=== PATIENT | female | born 1930 | race Caucasian/White ===

== ENCOUNTER 2017-03-03 14:37 | Emergency (ER) | payer OTHER, MEDICARE ==
[2017-03-03 14:59] VITALS: BP 160/70; BMI 22.8
--- NOTE | 2017-03-03 17:26 | DR.GENAD ---
HPI - PCP Primary Care Physician: MAO - HPI Comment HPI Comment: HISTORY BELOW. - Complaint/Symptoms Chief Complaint Doctors Comments: LOWER ABDOMINAL PAIN TIMES 2 DAYS. FELL LEFT LOWER ABDOMEN IS SWOLLEN AND RIGHT LOWER ABDOMEN IS SUNKEN. PREVIOUS HERNIA REPAIR DONE ON THE RIGHT. Chief Complaint:: WANTS TO HAVE SITE TO ABD WHERE HERNIA SURGERY WAS DONE TO BE CHECKED OUT SINCE IT IS SUNKEN IN. ONLY NOTICED THIS 2 DAYS AGO. - Nurses notes reviewed Nurses Notes Review: Yes - Source History Provided: Patient - Mode of Arrival Mode of Arrival: Ambulatory - Timing Onset of Chief Complaint: 03/01/17 Came on: Suddenly - Duration Duration: Constant Duration: Days - Severity Severity: Moderate PMH - PMH Past Medical History: Yes Past Medical History: Anxiety, Arthritis, Depression, Dyslipidemia, GERD, Hypertension Past Surgical History: Yes Surgical History: Appendectomy, Cholecystectomy, Joint Replacement, Other - Family History History of Family Medical Conditions: Yes Family Medical History: Heart Failure - Social History Alcohol Use: None Do you use any recreational Drugs:: Yes Lives With: Alone - infectious screening In the last 2 months have you had wt loss of >10#?: NO Have you had fever, night sweats or hemotysis?: No Have you traveled outside the country in the last 6 months?: No Isolation: Standard ROS - Review of Systems Constitutional: No Symptoms Reported. negative: Chills, Diaphoresis, Fever, Weakness, Fatigue Eyes: No Symptoms Reported. negative: Eye Pain, Discharge ENTM: No Symptoms Reported. negative: Ear Pain, Nose Discharge, Nose Congestion , Throat Pain Respiratoy: No Symptoms Reported. negative: Productive Cough, Short of Breath, Wheezing, Hemoptysis Cardiovascular: No Symptoms Reported. negative: Chest Pain Gastrointestinal/Abdominal: Abdominal Pain, Nausea. negative: Diarrhea, Vomiting Genitourinary: Dysuria. negative: Frequency, Hematuria Neurological: No Symptoms Reported. negative: Headache, Weakness Musculoskeletal: No Symptoms Reported Integumentary: No Symptoms Reported Hematologic/Lymphatic: No Symptoms Reported Endocrine: No Symptoms Reported All Other Systems: Reviewed and Negative PE - Vital Signs Vitals: Temperature 97.4 F Pulse Rate 79 Respiratory Rate 14 Blood Pressure [Left Arm] 169/74 Blood Pressure [Right Arm] 140/63 Blood Pressure [Standing] 145/70 Blood Pressure [Sitting] 149/65 Blood Pressure [Lying] 171/74 Blood Pressure 160/70 O2 Sat by Pulse Oximetry 95 - General Limitations: No Limitations General Appearance: Alert - Head Head Exam: Normal Inspection - Eyes Eye exam: Normal Appearance - ENT ENT Exam: Normal External Ear Exam External Ear Exam: Normal External Inspection TM/Canal Exam: Bilateral Normal Nose Exam: Normal Nose Exam Mouth Exam: Normal Inspection Throat Exam: Normal Inspection - Neck Neck Exam: Trachea Midline - Chest Chest Inspection: Symmetric Chest Wall Rise - Respiratory Respiratory Exam: Normal Lung Sounds Bilat Respiratory Exam: Bilateral Clear to Auscultation - Cardiovascular Cardiovascular Exam: Regular Rate, Normal Rhythm, Normal Heart Sounds - Abdominal Exam Abdominal Exam: Normal Bowel Sounds, Soft, Tenderness Abdominal Tenderness: RLQ, LLQ, Suprapubic - Extremities Extremities Exam: Normal Inspection - Back Back Exam: Normal Inspection - Neurologic Neurological Exam: Alert, Oriented X3 - Psychiatric Psychiatric Exam: Normal Affect, Normal Mood - Skin Skin Exam: Normal Color MDM - Differential Diagnosis Differential Diagnosis: ABDOMINAL PAIN Course - Treatment Treatment: SEE 0RDERS - Education/Counseling Education/Counseling: Patient, Education Educated On: Diagnosis, Needs for Follow Up ROR - Labs Reviewed Laboratory Results Reviewed?: Yes Result Diagrams: 03/03/17 17:25 03/03/17 17:25 Laboratory: WBC 6.0 X10^3/uL (3.6-10.0) 03/03/17 17:25 RBC 4.10 X10^6/uL (3.5-5.4) 03/03/17 17:25 Hgb 13.6 g/dL (12.0-16.0) 03/03/17 17:25 Hct 40.0 % (36.0-47.0) 03/03/17 17:25 MCV 97.7 fL (80.0-100.0) 03/03/17 17:25 MCH 33.3 pg (27.0-34.0) 03/03/17 17:25 MCHC 34.1 g/dL (33.0-35.0) 03/03/17 17:25 RDW 12.8 % (11.6-16.5) 03/03/17 17:25 Plt Count 199 X10^3/uL (150.0-450.0) 03/03/17 17:25 MPV 7.9 fL (7.4-11.0) 03/03/17 17:25 Neut % 62.5 % (42.0-75.0) 03/03/17 17: Lymph % 28.7 % (21.0-51.0) 03/03/17: [place] % 6.1 % (0.0-13.0) 03/03/17 17: Eos % 1.7 % (0.9-2.9) 03/03/17 17: Baso % 1.0 % (0.2-1.0) 03/03/17: Neut # 3.7 x10^3/uL (2.2-4.8) 03/03/17: Lymph # 1.7 X10^3/uL (1.3-2.9) 03/03/17: [place] # 0.4 x10^3/uL (0.3-0.8) 03/03/17: Eos # 0.1 x10^3/uL (0.0-0.2) 03/03/17: Baso # 0.1 X10^3/uL (0.0-0.1) 03/03/17 17: Absolute Nucleated RBC 0.0 /100WBC 03/03/17 17:25 Sodium 143 mmol/L (136-145) 03/03/17 17: Corrected Sodium TNP 03/03/17: Potassium 4.6 mmol/L (3.5-5.1) 03/03/17: Chloride 105 mmol/L (98-107) 03/03/17: Carbon Dioxide 25.0 mmol/L (21-32) 03/03/17: BUN 20 mg/dL (7-18) H 03/03/17 17:25 Creatinine 1.24 mg/dL (0.55-1.02) H 03/03/17:25 Est GFR (MDRD) Af Amer 53 (>60) L 03/03/17: Est GFR (MDRD) Non-Af 44 (>60) L 03/03/17:25 Glucose 95 mg/dL (65-99) 03/03/17: Calcium 9.2 mg/dL (8.5-10.1) 03/03/17: Corrected Calcium TNP 04/17/17 17:25 Total Bilirubin 0.30 mg/dL (0.2-1.0) 03/03/17 17:25 AST 16 Units/L (15-37) 03/03/17 17:25 ALT 18 Units/L (12-78) 03/03/17 17:25 Alkaline Phosphatase 72 Units/L (46-116) 03/03/17 17:25 Total Protein 7.4 g/dL (6.4-8.2) 03/03/17 17:25 Albumin 3.9 g/dL (3.4-5.0) 03/03/17 17:25 Globulin 3.5 g/dL (2.5-4.5) 03/03/17 17:25 Albumin/Globulin Ratio 1.1 Ratio (1.1-2.1) 03/03/17 17:25 Amylase 61 Units/L (25-115) 03/03/17 17:25 Lipase 203 Units/L (73-393) 03/03/17 17:25 Specimen Type Clean catch urine 03/03/17 17:25 Urine Color Yellow (YELLOW) 03/03/17 17:25 Urine Appearance Clear (CLEAR) 03/03/17 17:25 Urine pH 5.0 (5.0 - 8.0) 03/03/17 17:25 Ur Specific [place] 1.015 (1.000-1.030) 03/03/17 17:25 Urine Protein Negative (NEGATIVE) 03/03/17 17:25 Urine Glucose (UA) Negative (NEGATIVE) 03/03/17 17:25 Urine Ketones Negative (NEGATIVE) 03/03/17 17:25 Urine Occult Blood Negative (NEGATIVE) 03/03/17 17:25 Urine Nitrite Negative (NEGATIVE) 03/03/17 17:25 Urine Bilirubin Negative (NEGATIVE) 03/03/17 17:25 Urine Urobilinogen Normal (NORMAL) 03/03/17 17:25 Ur Leukocyte Esterase 2+ (NEGATIVE) 03/03/17 17:25 Urine RBC 0-1 /HPF (NEGATIVE) 03/03/17 17:25 Urine WBC 2-4 /HPF (NEGATIVE) 03/03/17 17:25 Ur Squamous Epith Cells Rare /HPF (NEGATIVE) 03/03/17 17:25 Amorphous Sediment 1+ /HPF (NEGATIVE) 03/03/17 17:25 Urine Bacteria Negative /HPF (NEGATIVE) 03/03/17 17:25 Ur Culture Indicated? No/not indicated 03/03/17 17:25 - XRAY XRAY Interpreted by: Radiologist XRAY Findings: REPORT DISCUSS WITH PATIENT. - Diagnosis Discharge Problem: Abdominal pain Qualifiers: Abdominal location: lower abdomen, unspecified Qualified Code(s): R10.30 - Lower abdominal pain, unspecified - Discharge Plan Condition: Stable - Follow ups/Referrals Follow ups/Referrals: Nabil Vaughn [Primary Care Provider] - 3 days - Instructions Instructions: Abdominal Pain, Adult, [id number] Additional Instructions: RETURN TO ED IF WORSE.
[2017-03-03 17:43] LABS: BASOPHILS # (AUTO) 0.1 X10^3/uL (0.0-0.1); EOSINOPHILS # (AUTO) 0.1 x10^3/uL (0.0-0.2); EOSINOPHILS % (AUTO) 1.7 % (0.9-2.9); HEMOGLOBIN 13.6 g/dL (12.0-16.0); LYMPHOCYTES # (AUTO) 1.7 X10^3/uL (1.3-2.9); LYMPHOCYTES % (AUTO) 28.7 % (21.0-51.0); MEAN CORPUSCULAR HEMOGLOBIN 33.3 pg (27.0-34.0); MEAN CORPUSCULAR HGB CONC 34.1 g/dL (33.0-35.0); MEAN CORPUSCULAR VOLUME 97.7 fL (80.0-100.0); MEAN PLATELET VOLUME 7.9 fL (7.4-11.0); MONOCYTES # (AUTO) 0.4 x10^3/uL (0.3-0.8); MONOCYTES % (AUTO) 6.1 % (0.0-13.0); NEUTROPHILS # (AUTO) 3.7 x10^3/uL (2.2-4.8); NEUTROPHILS % (AUTO) 62.5 % (42.0-75.0); PLATELET COUNT 199 X10^3/uL (150.0-450.0); RED CELL DISTRIBUTION WIDTH 12.8 % (11.6-16.5)
[2017-03-03 17:51] LABS: BILIRUBIN,URINE NEGATIVE (NEGATIVE); BLOOD/HEMOGLOBIN,URINE NEGATIVE (NEGATIVE); GLUCOSE, URINE NEGATIVE (NEGATIVE); KETONES,URINE NEGATIVE (NEGATIVE); LEUKOCYTE ESTERASE ,URINE 2+ (NEGATIVE); NITRITES,URINE NEGATIVE (NEGATIVE); PROTEIN,URINE NEGATIVE (NEGATIVE); UROBILINOGEN,URINE NORMAL (NORMAL)
[2017-03-03 18:01] LABS: AMORPHOUS SEDIMENT,UR 1+ /HPF (NEGATIVE); APPEARANCE,URINE CLEAR (CLEAR); BACTERIA,URINE NEGATIVE /HPF (NEGATIVE); COLOR,URINE YELLOW (YELLOW); RBC,URINE 0-1 /HPF (NEGATIVE); SQUAMOUS EPITHELIAL CELL,UR RARE /HPF (NEGATIVE)
--- NOTE | 2017-03-03 18:11 | RAD ---
HISTORY: Pain Study: Acute abdominal series Comparison: 10/05/2016. Findings: The trachea is midline. The cardiac silhouette is unremarkable. The lungs are clear without focal infiltrate or effusion. The bony thorax is unremarkable. Flat plate and upright evaluation of the abdomen demonstrates a normal bowel gas pattern. No pathol ogical soft tissue mass or calcification can be observed. The bony structures are grossly intact. T here are bilateral hip replacements which are unchanged. IMPRESSION: 1. No acute cardiopulmonary disease. 2. No evidence for acute abdominal pathology identified. Reported By:
[2017-03-03 18:12] LABS: ALANINE AMINOTRANSFERASE 18 Units/L (12-78); ALBUMIN 3.9 g/dL (3.4-5.0); ALKALINE PHOSPHATASE 72 Units/L (46-116); AMYLASE 61 Units/L (25-115); ASPARTATE AMINO TRANSFERASE 16 Units/L (15-37); BLOOD UREA NITROGEN 20 mg/dL (7-18); CALCIUM 9.2 mg/dL (8.5-10.1); CHLORIDE 105 mmol/L (98-107); CREATININE 1.24 mg/dL (0.55-1.02); GLUCOSE 95 mg/dL (65-99); LIPASE 203 Units/L (73-393); SODIUM 143 mmol/L (136-145); TOTAL PROTEIN 7.4 g/dL (6.4-8.2); eGFR BLACK RACES 53 (>60); eGFR NON BLACK RACES 44 (>60)
== END 2017-03-03 18:52 | disposition home or self-care (01) ==
LOC: ER 15:07
DX: R10.31 Right lower quadrant pain (principal)
CPT/HCPCS: 36415; 74022; 80053; 81001; 82150; 83690; 85025; 99283

== ENCOUNTER 2017-06-03 08:44 | Emergency (ER) | payer OTHER, MEDICARE ==
[2017-06-03 08:48] VITALS: BMI 26.5
--- NOTE | 2017-06-03 09:01 | DR.EXTPAIN ---
HPI - Time seen Time seen: 10:00 - PCP Primary Care Physician: MAO RYAN - Complaint/Symptoms Chief Complaint:: PT C/O BACK PAIN THAT STARTED ON 06/02/17.. PT STATES " WHEN I GOT UP IT'S LIKE SOMETHING TORE APART IN THERE" Self Treatment fo Chief Complaint: PERCOGESIC, - Source History Provided: Patient - Mode of arrival Mode of Arrival: Wheelchair - Timing Onset of Chief Complaint: 06/02/17 PMH - PMH Past Medical History: Yes Past Medical History: Anxiety, Arthritis, Depression, Dyslipidemia, GERD, Hypertension Past Surgical History: Yes Surgical History: Appendectomy, Cholecystectomy, Joint Replacement - Family History History of Family Medical Conditions: Yes Family Medical History: Heart Failure - Social History Does patient currently use any type of tobacco product: No Have you used tobacco products in the last 12 months: No Type of Tobacco Use: None Does any household member use tobacco: No Alcohol Use: None Do you use any recreational Drugs:: No Lives With: Alone Lives Where: Home - infectious screening In the last 2 months have you had wt loss of >10#?: NO Have you had fever, night sweats or hemotysis?: No Have you traveled outside the country in the last 6 months?: No Isolation: Standard PE - Vital Signs Vitals: Temperature 97.6 F Pulse Rate 69 Respiratory Rate 22 Blood Pressure [Left Arm] 160/62 Blood Pressure [Right Arm] 140/63 Blood Pressure [Standing] 145/70 Blood Pressure [Sitting] 149/65 Blood Pressure [Lying] 171/74 Blood Pressure 186/77 O2 Sat by Pulse Oximetry 100 ROR - XRAY XRAY Interpreted by: Radiologist XRAY Findings: ct lumbar: hnp no fx - Diagnosis Discharge Problem: HNP (herniated nucleus pulposus), lumbar - Discharge Plan Condition: Stable Prescriptions: Prednisone [PREDNISONE TAB 20 MG *] 20 mg PO QAM #7 tab Tramadol HCl [ULTRAM 50 MG *] 50 mg PO Q8H PRN #20 tab PRN Reason: Pain - Follow ups/Referrals Follow ups/Referrals: Nabil Vaughn [Primary Care Provider] - 3 days - Instructions
[2017-06-03] MEDS ORDERED: CATAPRES TAB 0.2 MG PO ONE (09:21)
[2017-06-03] MEDS ORDERED: TORADOL 60 MG VIAL IM ONE (09:21)
[2017-06-03] MEDS ORDERED: CATAPRES TAB 0.2 MG ONE (09:38)
[2017-06-03] MEDS ORDERED: TORADOL 60 MG VIAL ONE (09:38)
[2017-06-03 10:43] VITALS: BP 160/62
--- NOTE | 2017-06-03 10:47 | CT ---
HISTORY: Sudden onset low back pain Study: CT lumbar spine without contrast Comparison: None Technique: Axial non contrast images with coronal and sagittal reformats. Dose reduction procedures were use with MA/kv adjusted for body size. Findings: The bones are osteopenic. The alignment is normal. The vertebral bodies are of average height. No co mpression fracture is identified. The pedicles, spinous processes, and posterior elements are intact . The SI joints and visualized sacrum are intact. The disc levels are evaluated as follows: L1-2 level: there is disc degeneration with broad-based disc protrusion which effaces the thecal sa c and contributes along with facet arthropathy to moderate lateral recess and foraminal narrowing bi laterally. L2-3 level: Mild circumferential disk bulging contributes along with facet arthropathy to mild later al recess narrowing bilaterally. This is slightly more prominent on the left than the right. L3-4 level: Broad-based disc protrusion effaces the thecal sac and contributes along with pedicular shortening and facet arthropathy to lateral recess narrowing bilaterally. L4-5 level: There is marked disc degeneration with vacuum phenomenon present. Broad-based disk bulgi ng effaces the thecal sac and contributes along with facet arthropathy and pedicular shortening and spondylitic change to lateral recess and foraminal narrowing bilaterally right greater than left L5-S1 level: Broad-based disc protrusion, partially calcified, effaces the thecal sac and contribute s along with pedicular shortening and facet arthropathy to lateral recess and foraminal narrowing bi laterally more prominent than at the levels noted above. IMPRESSION: As above Reported By:
== END 2017-06-03 11:48 | disposition home or self-care (01) ==
LOC: ER 08:59
DX: M51.26 Other intervertebral disc displacement, lumbar region (principal)
CPT/HCPCS: 72131; 96372; 99282; J1885

== ENCOUNTER 2017-07-28 13:41 | Inpatient (IN) | payer OTHER, MEDICARE ==
[2017-07-28 13:58] VITALS: BMI 21.9
[2017-07-28] MEDS ORDERED: DILAUDID INJ IVP ONE ×2 (13:59→18:19)
--- NOTE | 2017-07-28 13:59 | DR.EXTPAIN ---
HPI - Time seen Time seen: 13:50 - Complaint/Symptoms Chief Complaint Doctor Comments: Patient states that she fell while at home just prior to arrival. Her pain level is 10/10 aggravated by motion. PMH - PMH Past Medical History: Anxiety, Arthritis, Depression, Dyslipidemia, GERD, Hypertension Past Surgical History: Yes Surgical History: Appendectomy, Cholecystectomy, Joint Replacement - Family History Family Medical History: Heart Failure - Social History Do you use any recreational Drugs:: No ROS - Review of Systems Eyes: No Symptoms Reported ENTM: No Symptoms Reported Respiratoy: No Symptoms Reported Cardiovascular: No Symptoms Reported Gastrointestinal/Abdominal: No Symptoms Reported Genitourinary: No Symptoms Reported Neurological: No Symptoms Reported Musculoskeletal: Hip (right hip pain) Integumentary: No Symptoms Reported Hematologic/Lymphatic: No Symptoms Reported Endocrine: No Symptoms Reported Psychiatric: No Symptoms Reported All Other Systems: Reviewed and Negative PE - Vital Signs Vitals: Temperature 98.9 F Pulse Rate 54 Respiratory Rate 18 Blood Pressure [Left Arm] 160/62 Blood Pressure [Right Arm] 140/63 Blood Pressure [Standing] 145/70 Blood Pressure [Sitting] 149/65 Blood Pressure [Lying] 171/74 Blood Pressure 212/85 O2 Sat by Pulse Oximetry 100 - General General Appearance: Alert, In No Apparent Distress - Head Head Exam: Normal Inspection, Atraumatic - ENT ENT Exam: Normal Exam, Normal Oropharynx - Neck Neck Exam: Other (arthritic, decreased ROM ) - Chest Chest Inspection: Normal Inspection - Respiratory Respiratory Exam: Normal Lung Sounds Bilat Respiratory Exam: Bilateral Clear to Auscultation - Cardiovascular Cardiovascular Exam: Regular Rate, Normal Rhythm - Abdominal Exam Abdominal Exam: Normal Inspection Abdominal Tenderness: negative: RUQ, RLQ, LUQ, LLQ, Epigastrium, Suprapubic, Diffuse, Mild, Moderate, Severe, Other - Extremities Extremities Exam: Tenderness (Right hip joint, leg externally rototated) - Upper Extremities Shoulder Exam: Normal Inspection Arm Exam: Normal Inspection Elbow Exam: Normal Inspection Forearm Exam: Normal Inspection Hand Exam: Normal Inspection Neuromotor Exam: Normal Exam Neurosensory Exam: Normal Exam Hand Tendon Exam: Flexor Digitorium Profundus (Location) Upper Ext. Vascular Exam: Capillary Refill, Radial Pulse - Lower Extremities Hip/Pelvis Exam: Normal Inspection Upper Leg Exam: Normal Inspection Knee Exam: Normal Inspection Lower Leg Exam: Normal Inspection, Full ROM Ankle Exam: Normal Inspection Foot/Toe Exam: Normal Inspection Neurovascular/Tendon Exam: Normal Capillary Refill Gait Exam: Observed and Normal - Back Back Exam: Normal Inspection - Neurological Neurological Exam: Alert, Oriented X3, CN II-XII Intact - Psychiatric Psychiatric Exam: Normal Affect - Skin Skin Exam: Warm, Dry, Intact Type of Lesion: Rash Distribution: Generalized Course - Reevaluation 1st: Improved - Consultation Called: 11:40 (Dr Velez agreed to admit for further evaluation) ROR - Labs Reviewed Result Diagrams: 07/28/17 15:41 07/28/17 15:41 Laboratory: WBC 11.6 X10^3/uL (3.6-10.0) H 07/28/17 15:41 RBC 3.98 X10^6/uL (3.5-5.4) 07/28/17 15:41 Hgb 13.1 g/dL (12.0-16.0) 07/28/17 15:41 Hct 38.6 % (36.0-47.0) 07/28/17 15:41 MCV 97.0 fL (80.0-100.0) 07/28/17 15:41 MCH 33.0 pg (27.0-34.0) 07/28/17 15:41 MCHC 34.0 g/dL (33.0-35.0) 07/28/17 15:41 RDW 13.1 % (11.6-16.5) 07/28/17 15:41 Plt Count 201 X10^3/uL (150.0-450.0) 07/28/17 15:41 MPV 7.7 fL (7.4-11.0) 07/28/17 15:41 Neut % 82.6 % (42.0-75.0) H 07/28/17 15:41 Lymph % 9.9 % (21.0-51.0) L 07/28/17 15:41 [place] % 6.2 % (0.0-13.0) 07/28/17 15:41 Eos % 0.5 % (0.9-2.9) L 07/28/17 15:41 Baso % 0.8 % (0.2-1.0) 07/28/17 15:41 Neut # 9.6 x10^3/uL (2.2-4.8) H 07/28/17 15:41 Lymph # 1.2 X10^3/uL (1.3-2.9) L 07/28/17 15:41 [place] # 0.7 x10^3/uL (0.3-0.8) 07/28/17 15:41 Eos # 0.1 x10^3/uL (0.0-0.2) 07/28/17 15:41 Baso # 0.1 X10^3/uL (0.0-0.1) 07/28/17 15:41 Absolute Nucleated RBC 0.0 /100WBC 07/28/17 15:41 ESR 8 MM/HOUR (0-20) 07/28/17 15:41 INR Target Range - 07/28/17 15:41 INR 1.08 (0.8-1.3) 07/28/17 15:41 PTT 25.9 SECONDS (22.9-36.5) 07/28/17 15:41 PTT Comment - 07/28/17 15:41 Sodium 137 mmol/L (136-145) 07/28/17 15:41 Corrected Sodium 137 mmol/L (136-145) 07/28/17 15:41 Potassium 4.8 mmol/L (3.5-5.1) 07/28/17 15:41 Chloride 104 mmol/L (98-107) 07/28/17 15:41 Carbon Dioxide 25.9 mmol/L (21-32) 07/28/17 15:41 BUN 21 mg/dL (7-18) H 07/28/17 15:41 Creatinine 1.45 mg/dL (0.55-1.02) H 07/28/17 15:41 Est GFR (MDRD) Af Amer 44 (>60) L 07/28/17 15:41 Est GFR (MDRD) Non-Af 36 (>60) L 07/28/17 15:41 Glucose 117 mg/dL (65-99) H 07/28/17 15:41 Calcium 8.9 mg/dL (8.5-10.1) 07/28/17 15:41 Corrected Calcium TNP 07/28/17 15:41 Total Bilirubin 0.60 mg/dL (0.2-1.0) 07/28/17 15:41 AST 16 Units/L (15-37) 07/28/17 15:41 ALT 20 Units/L (12-78) 07/28/17 15:41 Alkaline Phosphatase 71 Units/L (46-116) 07/28/17 15:41 C-Reactive Protein < 0.50 mg/L (0-3.0) 07/28/17 15:41 Total Protein 7.2 g/dL (6.4-8.2) 07/28/17 15:41 Albumin 3.8 g/dL (3.4-5.0) 07/28/17 15:41 Globulin 3.4 g/dL (2.5-4.5) 07/28/17 15:41 Albumin/Globulin Ratio 1.1 Ratio (1.1-2.1) 07/28/17 15:41 Specimen Type Catherized urine 07/28/17 16:48 Urine Color Yellow (YELLOW) 07/28/17 16:48 Urine Appearance Clear (CLEAR) 07/28/17 16:48 Urine pH 6.5 (5.0 - 8.0) 07/28/17 16:48 Ur Specific [place] 1.010 (1.000-1.030) 07/28/17 16:48 Urine Protein Negative (NEGATIVE) 07/28/17 16:48 Urine Glucose (UA) Negative (NEGATIVE) 07/28/17 16:48 Urine Ketones Negative (NEGATIVE) 07/28/17 16:48 Urine Occult Blood Negative (NEGATIVE) 07/28/17 16:48 Urine Nitrite Negative (NEGATIVE) 07/28/17 16:48 Urine Bilirubin Negative (NEGATIVE) 07/28/17 16:48 Urine Urobilinogen Normal (NORMAL) 07/28/17 16:48 Ur Leukocyte Esterase Negative (NEGATIVE) 07/28/17 16:48 Urine RBC None seen /HPF (NEGATIVE) 07/28/17 16:48 Urine WBC None seen /HPF (NEGATIVE) 07/28/17 16:48 Ur Squamous Epith Cells Rare /HPF (NEGATIVE) 07/28/17 16:48 Urine Bacteria Negative /HPF (NEGATIVE) 07/28/17 16:48 Ur Culture Indicated? No/not indicated 07/28/17 16:48 - XRAY XRAY Interpreted by: Radiologist (Right Hip: There is a fracture in the subtrochanteric right femur that is displaced laterally. The right hip prosthesis is otherwise intact. CT right hip w/o contrast: Deep soft tissues of the pelvis show no unexpected abnormality. There4 is soft tissue stranding about the right femur whitout large drainable collection. Hematoma within the vastus intermedius muscle belly suggested. Knee joint degenerative change and mild osteopenia noted. The acetabular component of the arthroplasty is intact. Impression: 1.Right femur fracture around the stoma the right hip arthroplasty. 2.Intact acetabular component.3.Knee joint degenerative change. 4. Hemamtom of the vastus medialis muscle about the fracture. 5.Vascular plaque and ohter incidental findings as above.) - Diagnosis Discharge Problem: Right femoral fracture Qualifiers: Encounter type: initial encounter Femur location: intertrochanteric Fracture type: closed Fracture alignment: displaced Qualified Code(s): S72.141A - Displaced intertrochanteric fracture of right femur, initial encounter for closed fracture - Discharge Plan Condition: Stable - Follow ups/Referrals Follow ups/Referrals: NFD,None [Primary Care Provider] - 3 days - Instructions
[2017-07-28] MEDS ORDERED: DILAUDID INJ ONE ×2 (14:00→18:20)
--- NOTE | 2017-07-28 14:23 | RAD ---
HISTORY: Fall and pain Study: right hip series Comparison: 07/25/2016 Findings: There is a metallic prosthesis in both hips with the acetabular and femoral portions of the prosthesi s in good position. There is a spiral fracture along the proximal femur on the right beginning along the subtrochanteric region and extending distally around the tip of the prosthesis. The fracture is m ildly displaced and slightly comminuted distally. The pelvis is intact. The bones are osteopenic. Impression: Bilateral hip replacements which appear intact and in good position with a mildly displaced and sligh tly comminuted fracture along the proximal right femur. Severe osteopenia. Reported By:
[2017-07-28 15:50] LABS: BASOPHILS # (AUTO) 0.1 X10^3/uL (0.0-0.1); BASOPHILS % (AUTO) 0.8 % (0.2-1.0); EOSINOPHILS # (AUTO) 0.1 x10^3/uL (0.0-0.2); EOSINOPHILS % (AUTO) 0.5 % (0.9-2.9); HEMATOCRIT 38.6 % (36.0-47.0); HEMOGLOBIN 13.1 g/dL (12.0-16.0); LYMPHOCYTES # (AUTO) 1.2 X10^3/uL (1.3-2.9); LYMPHOCYTES % (AUTO) 9.9 % (21.0-51.0); MEAN PLATELET VOLUME 7.7 fL (7.4-11.0); MONOCYTES # (AUTO) 0.7 x10^3/uL (0.3-0.8); MONOCYTES % (AUTO) 6.2 % (0.0-13.0); NEUTROPHILS # (AUTO) 9.6 x10^3/uL (2.2-4.8); NEUTROPHILS % (AUTO) 82.6 % (42.0-75.0); PLATELET COUNT 201 X10^3/uL (150.0-450.0); RED BLOOD COUNT 3.98 X10^6/uL (3.5-5.4); RED CELL DISTRIBUTION WIDTH 13.1 % (11.6-16.5); WHITE BLOOD COUNT 11.6 X10^3/uL (3.6-10.0)
[2017-07-28 16:03] LABS: ALANINE AMINOTRANSFERASE 20 Units/L (12-78); ALBUMIN 3.8 g/dL (3.4-5.0); ALKALINE PHOSPHATASE 71 Units/L (46-116); ASPARTATE AMINO TRANSFERASE 16 Units/L (15-37); BLOOD UREA NITROGEN 21 mg/dL (7-18); C-REACTIVE PROTEIN < 0.50 mg/L (0-3.0); CALCIUM 8.9 mg/dL (8.5-10.1); CARBON DIOXIDE 25.9 mmol/L (21-32); CHLORIDE 104 mmol/L (98-107); COR NA(FOR HYPERGLY) 137 mmol/L (136-145); CREATININE 1.45 mg/dL (0.55-1.02); SODIUM 137 mmol/L (136-145); TOTAL PROTEIN 7.2 g/dL (6.4-8.2); eGFR BLACK RACES 44 (>60); eGFR NON BLACK RACES 36 (>60)
[2017-07-28 16:38] LABS: ERYTHROCYTE SEDIMENTATION RATE 8 MM/HOUR (0-20)
--- NOTE | 2017-07-28 16:47 | CT ---
CT right hip without contrast Indication: Fall with possible fracture Comparison: July 28, 2017 radiograph. Technique: Helical images through the right hip and femur without contrast. Coronal and sagittal refo rmats provided. Findings: Deep soft tissues of the pelvis show no unexpected abnormality. There is soft tissue strand ing about the right femur without large drainable collection. Hematoma within the vastus intermedius muscle belly suggested. Knee joint degenerative change and mild osteopenia noted. The acetabular comp onent of the arthroplasty is intact. As seen radiographically there is obliquely oriented fracture about the proximal diaphysis and metaph ysis of the femur, around the femoral stone of the right total hip arthroplasty. Impression: 1. Right femur fracture around the stoma the right hip arthroplasty. 2. Intact acetabular component. 3. Knee joint degenerative change. 4. Hematoma of the vastus medialis muscle about the fracture. 5. Vascular plaque and other incidental findings as above Reported By:
[2017-07-28 17:01] LABS: BILIRUBIN,URINE NEGATIVE (NEGATIVE); BLOOD/HEMOGLOBIN,URINE NEGATIVE (NEGATIVE); GLUCOSE, URINE NEGATIVE (NEGATIVE); KETONES,URINE NEGATIVE (NEGATIVE); LEUKOCYTE ESTERASE ,URINE NEGATIVE (NEGATIVE); NITRITES,URINE NEGATIVE (NEGATIVE); PH,URINE 6.5 (5.0 - 8.0); PROTEIN,URINE NEGATIVE (NEGATIVE); UROBILINOGEN,URINE NORMAL (NORMAL)
--- NOTE | 2017-07-28 17:03 | RAD ---
HISTORY: Fall and right hip fracture. Study: Four views of the right femur. Comparison: Right hip series dated same day. Findings: There is a fracture in the sub trochanteric right femur that is displaced laterally. The right hip pr osthesis is otherwise intact. Remaining osseous structures appear intact. IMPRESSION: Proximal right femur fracture as above. Reported By:
[2017-07-28 17:19] LABS: APPEARANCE,URINE CLEAR (CLEAR); BACTERIA,URINE NEGATIVE /HPF (NEGATIVE); COLOR,URINE YELLOW (YELLOW); RBC,URINE NONE SEEN /HPF (NEGATIVE); SQUAMOUS EPITHELIAL CELL,UR RARE /HPF (NEGATIVE)
[2017-07-28] MEDS ORDERED: DILAUDID PCA 60 MG IVP PRN (18:04)
[2017-07-28] MEDS ORDERED: DILAUDID INJ IVP PRN (19:59)
[2017-07-28] MEDS: CATAPRES TAB 0.1 MG PO SCH (20:47)
[2017-07-28] MEDS: ANTIVERT TAB 25 MG PO SCH (20:47)
[2017-07-28] MEDS: COREG TAB 6.25 MG PO SCH (20:47)
[2017-07-28] MEDS: BENADRYL CAP/TAB 25 MG PO PRN (20:47)
[2017-07-28] MEDS: D5W 1000 ML IV 1,000 ML IV SCH (22:16)
[2017-07-29 05:16] LABS: BASOPHILS % (AUTO) 0.5 % (0.2-1.0); EOSINOPHILS % (AUTO) 0.2 % (0.9-2.9); HEMATOCRIT 34.9 % (36.0-47.0); HEMOGLOBIN 11.9 g/dL (12.0-16.0); LYMPHOCYTES # (AUTO) 1.2 X10^3/uL (1.3-2.9); LYMPHOCYTES % (AUTO) 14.9 % (21.0-51.0); MEAN CORPUSCULAR HEMOGLOBIN 33.2 pg (27.0-34.0); MEAN CORPUSCULAR HGB CONC 34.1 g/dL (33.0-35.0); MEAN CORPUSCULAR VOLUME 97.4 fL (80.0-100.0); MEAN PLATELET VOLUME 8.4 fL (7.4-11.0); MONOCYTES # (AUTO) 0.9 x10^3/uL (0.3-0.8); MONOCYTES % (AUTO) 10.4 % (0.0-13.0); NEUTROPHILS # (AUTO) 6.1 x10^3/uL (2.2-4.8); PLATELET COUNT 170 X10^3/uL (150.0-450.0); RED BLOOD COUNT 3.59 X10^6/uL (3.5-5.4); RED CELL DISTRIBUTION WIDTH 13.1 % (11.6-16.5); WHITE BLOOD COUNT 8.3 X10^3/uL (3.6-10.0)
[2017-07-29 05:30] LABS: ALANINE AMINOTRANSFERASE 20 Units/L (12-78); ALBUMIN 3.5 g/dL (3.4-5.0); ALKALINE PHOSPHATASE 60 Units/L (46-116); ASPARTATE AMINO TRANSFERASE 19 Units/L (15-37); BLOOD UREA NITROGEN 21 mg/dL (7-18); CARBON DIOXIDE 28.1 mmol/L (21-32); CHLORIDE 107 mmol/L (98-107); COR NA(FOR HYPERGLY) 141 mmol/L (136-145); CREATININE 1.31 mg/dL (0.55-1.02); SODIUM 141 mmol/L (136-145); TOTAL PROTEIN 6.8 g/dL (6.4-8.2); eGFR BLACK RACES 50 (>60); eGFR NON BLACK RACES 41 (>60)
--- NOTE | 2017-07-29 06:43 | RAD ---
HISTORY: Preop for femur fracture Study: Single-view chest, done portably Comparison: March 03, 2017 Findings: Trachea is midline. Heart size is upper normal. Lungs and pleural spaces clear. No infiltrate, CHF, p leural fluid or pneumothorax is seen. Severe degenerative changes present involving the glenohumeral joints bilaterally, more pronounced on the left side. No acute osseous abnormality is seen. IMPRESSION: No acute cardiopulmonary disease. Reported By:
[2017-07-29] MEDS ORDERED: DULCOLAX SUPPOSITORY 10 MG RECTAL ONE (07:39)
--- NOTE | 2017-07-29 08:09 | DR.H&P ---
H&P - History & Physical for Day of: H&P Date: 07/28/17 - Chief Complaint Chief Complaint: RIGHT LEG/HIP PAIN - Allergies Allergies/Adverse Reactions: Allergies Allergy/AdvReac Type Severity Reaction Status Date / Time cephalexin [From Keflex] AdvReac Verified 07/28/17 19:58 morphine AdvReac Verified 07/28/17 19:58 sertraline [From Zoloft] AdvReac Verified 07/28/17 19:58 - History of Present Illness History of Present Illness: IS A 87 YEAR OLD PAITIENT OF OURS WHO PRESENTED TO THE EMERGENCY ROOM WITH COMPLAINTS OF RIGHT LEG AND HIP PAIN. PATIENT REPORTS THAT SHE TRIPPED OVER A CORD IN HER HOME AND LANDED ON HER RIGHT HIP/LEG. PATIENT REPORTS PAIN 08/26. ON ARRIVAL TO ER, VITALS WERE 98.9-54 -18-100%-212/85. CBC WNL EXCEPT WBC 11.6. CMP WNL EXCEPT BUN 21, CREATININE 1.45 , GFR 36, GLUCOSE 117. URINALYSIS NEGATIVE FOR UTI. RIGHT HIP XRAY REPORTS MILDLY DISPLACED AND SLIGHTLY COMMINUTED FX ALONG THE PROXIMAL RIGHT FEMUR. RIGHT FEMUR XRAY AGAIN REPORTS PROXIMAL RIGHT FEMUR FX. CT RIGHT HIP REPORTS RIGHT FEMUR FX AROUND THE STOMA AND THE RIGHT HIP ARTHROPLASTY, INTACT ACETABULAR COMPONENT, KNEE JOINT DEGENERATIVE CHANGE, HEMATOMA OF THE VASTUS MEDIALIS MUSCLE AOBOUT THE FX, AND VASCULAR PLAQUE AND OTHER INCIDENTAL FINDINGS. CHEST XRAY WNL. EKG REPORTS SINUS RHYTHM WITH RATE OF 68. PATIENT WAS GIVEN DILAUDID IVP IN ER WITH IMPROVEMENT IN PAIN NOTED. WE ADMITTED PATIENT FOR FURTHER TREATMENT AND EVALUATION. SHE WAS STARTED ON D5W AT 20ML/HR AND DILAUDID 2MG IVP Q1H PRN PAIN. HER HOME MEDICATIONS WERE RESTARTED. WE PLAN TO CONSULT . WE WILL RECHECK AM LABS AND CONTINUE TO MONITOR PATIENT. - Past Medical History Past Medical History: Anxiety, Arthritis, Depression, Dyslipidemia, GERD, Hypertension Additional Medical History: Cataracts, Freq UTI's, Hx Diverticulosis, Macular Degeneration, Hiatal Hernia, Degenerative Joint Disease - Past Surgical History Surgical History: Appendectomy, Cholecystectomy, Joint Replacement Additional Surgical History: Hernia Repair x 3, Left breast lumpectomy, HIP REPLACEMENT - Family History Family Medical History: Heart Failure - Social History Does patient currently use any type of tobacco product: No Have you used tobacco products in the last 12 months: No Type of Tobacco Use: None Does any household member use tobacco: No Alcohol Use: None Drug Use: None - Review of Systems Constitutional: No Symptoms Reported Eyes: No Symptoms Reported ENT: No Symptoms Reported Respiratory: No Symptoms Reported Cardiovascular: No Symptoms Reported Gastrointestinal: No Symptoms Reported Genitourinary: No Symptoms Reported Musculoskeletal: See HPI (RIGHT LEG/HIP PAIN), Leg Pain (RIGHT LEG/HIP PAIN) Skin: No Symptoms Reported Neurological: No Symptoms Reported - Physical Exam Vital Signs: Temperature 98.0 F Pulse Rate [Left Brachial] 68 Pulse Rate 54 Respiratory Rate 20 Blood Pressure [Left Arm] 134/63 Blood Pressure [Right Arm] 173/74 Blood Pressure [Standing] 145/70 Blood Pressure [Sitting] 149/65 Blood Pressure [Lying] 171/74 Blood Pressure 212/85 O2 Sat by Pulse Oximetry 96 Oriented: Normal Eyes: Normal Ear: Normal Nose: Normal Throat: Normal Respiratory: Clear Throughout Cardiovascular: Normal : Normal Auscultation: Bowel Sounds: Normal Palpation: Normal Tenderness: Normal Musculoskeletal: Right, Hip, Leg, Tender, Instability Psychiatric: Normal Mood Description: Calm Affect: Normal Speech Pattern: Clear - Assessment/Plan (1) Right femoral fracture Qualifiers: Encounter type: initial encounter Femur location: intertrochanteric Fracture type: closed Fracture alignment: displaced Qualified Code(s): S72.141A - Displaced intertrochanteric fracture of right femur, initial encounter for closed fracture Status: Acute Plan: SURGICAL CONSULT, DILAUDID 2MG Q1H PRN PAIN, CONTINUE TO MONITOR
--- NOTE | 2017-07-29 08:25 | PCM.PROG ---
Progress Note - Progress Note for Day of Date: 07/29/17 - Subjective Subjective: WAS ADMITTED FOR A RIGHT FEMUR FX. SHE IS ALERT AND ORIENTED, LYING IN BED ON MORNING ROUNDS. SHE IS NOTED WITH COMPLAINTS OF RIGHT LEG PAIN. VITALS THIS AM ARE 98.0-68-20-96%-134/63. CBC WNL EXCEPT HGB 11.9, HCT 34.9. CMP WNL EXCEPT BUN 21, CREATININE 1.31, GFR 41, GLUCOSE 120. WE WILL CONSULT WITH TODAY. WE WILL ADD TORADOL 30MG IVP Q2H PRN PAIN. PATIENT'S HISTORY AND LABS/XRAYS HAVE BEEN REVIEWED. PATIENT IS CLEAR FOR SURGERY SHOULD ORTHOPEDIC EXAM INDICATE THE NEED FOR SUCH. WE PLAN TO RECHECK AM LABS AND FOLLOW UP WITH PATIENT IN AM. - Past Medical Family Social History Past Med/Fam/Surg Hx: No changes since H&P Allergies: Allergies cephalexin [From Keflex] Adverse Reaction (Verified 07/28/17 19:58) morphine Adverse Reaction (Verified 07/28/17 19:58) sertraline [From Zoloft] Adverse Reaction (Verified 07/28/17 19:58) - Review of Systems ROS: No change since H&P - Vital Signs and I&O's Vital Signs: Temperature 98.0 F Pulse Rate [Left Brachial] 68 Pulse Rate 54 Respiratory Rate 20 Blood Pressure [Left Arm] 134/63 Blood Pressure [Right Arm] 173/74 Blood Pressure [Standing] 145/70 Blood Pressure [Sitting] 149/65 Blood Pressure [Lying] 171/74 Blood Pressure 212/85 O2 Sat by Pulse Oximetry 96 Intake and Output: Intake & Output 07/26/17 07/27/17 07/28/17 07/29/17 11:59 11:59 11:59 11:59 Intake Total 10 Output Total 800 Balance -790 - Physical Exam Oriented: Normal Eyes: Normal Ear: Normal Nose: Normal Throat: Normal Respiratory: Normal Cardiovascular: Normal : Normal Auscultation: Bowel Sounds: Normal Palpation: Normal Tenderness: Normal Skin: Normal Musculoskeletal: Right, Hip, Leg, Tender, Instability Psychiatric: Normal Mood Description: Calm Affect: Normal Speech Pattern: Clear - Laboratory and Diagnostics Result Diagrams: 07/29/17 03:26 07/29/17 03:26 Labs: Laboratory WBC 8.3 X10^3/uL (3.6-10.0) 07/29/17 03:26 RBC 3.59 X10^6/uL (3.5-5.4) 07/29/17 03:26 Hgb 11.9 g/dL (12.0-16.0) L 07/29/17 03:26 Hct 34.9 % (36.0-47.0) L 07/29/17 03:26 MCV 97.4 fL (80.0-100.0) 07/29/17 03:26 MCH 33.2 pg (27.0-34.0) 07/29/17 03:26 MCHC 34.1 g/dL (33.0-35.0) 07/29/17 03:26 RDW 13.1 % (11.6-16.5) 07/29/17 03:26 Plt Count 170 X10^3/uL (150.0-450.0) 07/29/17 03:26 MPV 8.4 fL (7.4-11.0) 07/29/17 03:26 Neut % 74.0 % (42.0-75.0) 07/29/17 03:26 Lymph % 14.9 % (21.0-51.0) L 07/29/17 03:26 [place] % 10.4 % (0.0-13.0) 07/29/17 03:26 Eos % 0.2 % (0.9-2.9) L 07/29/17 03:26 Baso % 0.5 % (0.2-1.0) 07/29/17 03:26 Neut # 6.1 x10^3/uL (2.2-4.8) H 07/29/17 03:26 Lymph # 1.2 X10^3/uL (1.3-2.9) L 07/29/17 03:26 [place] # 0.9 x10^3/uL (0.3-0.8) H 07/29/17 03:26 Eos # 0.0 x10^3/uL (0.0-0.2) 07/29/17 03:26 Baso # 0.0 X10^3/uL (0.0-0.1) 07/29/17 03:26 Absolute Nucleated RBC 0.1 /100WBC 07/29/17 03:26 ESR 8 MM/HOUR (0-20) 07/28/17 15:41 INR Target Range - 07/28/17 15:41 INR 1.08 (0.8-1.3) 07/28/17 15:41 PTT 25.9 SECONDS (22.9-36.5) 07/28/17 15:41 PTT Comment - 07/28/17 15:41 Sodium 141 mmol/L (136-145) 07/29/17 03:26 Corrected Sodium 141 mmol/L (136-145) 07/29/17 03:26 Potassium 5.0 mmol/L (3.5-5.1) 07/29/17 03:26 Chloride 107 mmol/L (98-107) 07/29/17 03:26 Carbon Dioxide 28.1 mmol/L (21-32) 07/29/17 03:26 BUN 21 mg/dL (7-18) H 07/29/17 03:26 Creatinine 1.31 mg/dL (0.55-1.02) H 07/29/17 03:26 Est GFR (MDRD) Af Amer 50 (>60) L 07/29/17 03:26 Est GFR (MDRD) Non-Af 41 (>60) L 07/29/17 03:26 Glucose 120 mg/dL (65-99) H 07/29/17 03:26 Calcium 9.0 mg/dL (8.5-10.1) 07/29/17 03:26 Corrected Calcium TNP 07/29/17 03:26 Total Bilirubin 0.40 mg/dL (0.2-1.0) 07/29/17 03:26 AST 19 Units/L (15-37) 07/29/17 03:26 ALT 20 Units/L (12-78) 07/29/17 03:26 Alkaline Phosphatase 60 Units/L (46-116) 07/29/17 03:26 C-Reactive Protein < 0.50 mg/L (0-3.0) 07/28/17 15:41 Total Protein 6.8 g/dL (6.4-8.2) 07/29/17 03:26 Albumin 3.5 g/dL (3.4-5.0) 07/29/17 03:26 Globulin 3.3 g/dL (2.5-4.5) 07/29/17 03:26 Albumin/Globulin Ratio 1.1 Ratio (1.1-2.1) 07/29/17 03:26 Specimen Type Catherized urine 07/28/17 16:48 Urine Color Yellow (YELLOW) 07/28/17 16:48 Urine Appearance Clear (CLEAR) 07/28/17 16:48 Urine pH 6.5 (5.0 - 8.0) 07/28/17 16:48 Ur Specific [place] 1.010 (1.000-1.030) 07/28/17 16:48 Urine Protein Negative (NEGATIVE) 07/28/17 16:48 Urine Glucose (UA) Negative (NEGATIVE) 07/28/17 16:48 Urine Ketones Negative (NEGATIVE) 07/28/17 16:48 Urine Occult Blood Negative (NEGATIVE) 07/28/17 16:48 Urine Nitrite Negative (NEGATIVE) 07/28/17 16:48 Urine Bilirubin Negative (NEGATIVE) 07/28/17 16:48 Urine Urobilinogen Normal (NORMAL) 07/28/17 16:48 Ur Leukocyte Esterase Negative (NEGATIVE) 07/28/17 16:48 Urine RBC None seen /HPF (NEGATIVE) 07/28/17 16:48 Urine WBC None seen /HPF (NEGATIVE) 07/28/17 16:48 Ur Squamous Epith Cells Rare /HPF (NEGATIVE) 07/28/17 16:48 Urine Bacteria Negative /HPF (NEGATIVE) 07/28/17 16:48 Ur Culture Indicated? No/not indicated 07/28/17 16:48 Blood Type B NEGATIVE 07/28/17 18:18 Antibody Screen Negative 07/28/17 18:18 - Plan (1) Right femoral fracture Status: Acute Qualifiers: Encounter type: initial encounter Femur location: intertrochanteric Fracture type: closed Fracture alignment: displaced Qualified Code(s): S72.141A - Displaced intertrochanteric fracture of right femur, initial encounter for closed fracture Plan: SURGICAL CONSULT, DILAUDID 2MG Q1H PRN PAIN, CONTINUE TO MONITOR (2) Depression Status: Chronic Qualifiers: Depression Type: major depressive disorder Major depression recurrence: recurrent Active/Remission status: currently active Major depression episode severity: moderate Qualified Code(s): F33.1 - Major depressive disorder, recurrent, moderate Plan: CONTINUE CELEXA 40MG PO DAILY, CONTINUE TO MONITOR (3) GERD (gastroesophageal reflux disease) Status: Chronic Qualifiers: Esophagitis presence: esophagitis presence not specified Qualified Code(s) : K21.9 - Gastro-esophageal reflux disease without esophagitis Plan: CONTINUE PEPCID 20MG DAILY, CONTINUE TO MONITOR (4) Hypertension Status: Chronic Qualifiers: Hypertension type: essential hypertension Qualified Code(s): I10 - Essential (primary) hypertension Plan: CONTINUE COREG 6.25MG BID, CONTINUE CATAPRES 0.1MG PO HS, CONTINUE LISINOPRIL 20MG PO DAILY, CONTINUE TO MONITOR (5) Vertigo Status: Chronic Plan: CONTINUE MECLIZINE 25MG PO HS, CONTINUE TO MONITOR
[2017-07-29] MEDS ORDERED: TORADOL 30 MG VIAL IVP PRN (09:20)
[2017-07-29] MEDS: DILAUDID INJ IVP PRN ×2 (09:27→22:46)
[2017-07-29] MEDS ORDERED: CHRONULAC PO PRN (12:30)
--- NOTE | 2017-07-29 13:50 | DR.CONSULT ---
Consult - Consultation for Day of: Date: 07/29/17 (thanks for the consult Dr. Vaughn.) - Chief Complaint Chief Complaint: RIGHT hip pain, swelling and deformity. Unable to walk since yesterday. - Allergies Allergies/Adverse Reactions: Allergies Allergy/AdvReac Type Severity Reaction Status Date / Time cephalexin [From Keflex] AdvReac Verified 07/28/17 19:58 morphine AdvReac Verified 07/28/17 19:58 sertraline [From Zoloft] AdvReac Verified 07/28/17 19:58 - History of Present Illness History of Present Illness: patient 87-year-old very pleasant lady. Had a fall at home. She has a RIGHT total hip replacement done in 2009. And and LEFT hemiarthroplasty. After the fall she noticed pain external rotation deformity of the feet. She was not able to lift her leg she was not able to get up and walk. Brought to the emergency room. X-rays of the RIGHT hip showed a fracture involving the the RIGHT periprosthetic femur around a total hip replacement. Admitted and consultation placed for orthopedics. History again confirmed. Denies any start up pain/thigh pain in the past. He denies any pain in the groin/chills/RIGOURS/constitutional symptoms.x-rays and CT was done. It confirmed a complex fracture involving the RIGHT periprosthetic femur. - Past Medical History Past Medical History: Anxiety, Arthritis, Depression, Dyslipidemia, GERD, Hypertension Additional Medical History: Cataracts, Freq UTI's, Hx Diverticulosis, Macular Degeneration, Hiatal Hernia, Degenerative Joint Disease - Past Surgical History Surgical History: Appendectomy, Cholecystectomy, Joint Replacement Additional Surgical History: Hernia Repair x 3, Left breast lumpectomy, HIP REPLACEMENT - Family History Family Medical History: Heart Failure - Social History Does patient currently use any type of tobacco product: No Have you used tobacco products in the last 12 months: No Type of Tobacco Use: None Does any household member use tobacco: No Alcohol Use: None Drug Use: None - Review of Systems Musculoskeletal: See HPI - Physical Exam Vital Signs: Temperature 98.0 F Pulse Rate [Left Brachial] 68 Pulse Rate 54 Respiratory Rate 20 Blood Pressure [Left Arm] 134/63 Blood Pressure [Right Arm] 173/74 Blood Pressure [Standing] 145/70 Blood Pressure [Sitting] 149/65 Blood Pressure [Lying] 171/74 Blood Pressure 212/85 O2 Sat by Pulse Oximetry 96 Musculoskeletal: Right, Hip, Thigh, Swelling, Tender, Deformity, Instability - Plan Plan: she has a RIGHT hip periprosthetic fracture. The fracture is a complex fracture involving the lesser tuberosityas well as a around the stem. She doesn 't seem to have any signs of loosening or infection in the past. Seems like stable processes before the fall. She will need surgical intervention. Depending on the intraoperative findings for stability of the implant we will proceed with most probably open reduction and internal fixation of the RIGHT femur periprosthetic fracture with plates and screws and cables. We will also have a judaism modular available as backup in case he find that the prosthesis was unstable. #1 postop for surgery on . #2 blood group type and match and arrange for 3 units of PRBCs as standby. #3 [place] traction with 5 pounds on the RIGHT limb.
[2017-07-29] MEDS ORDERED: ZESTRIL TAB 20 MG ONE (15:24)
[2017-07-29] MEDS: CELEXA PO SCH (15:25)
[2017-07-29] MEDS: COREG TAB 6.25 MG PO SCH ×2 (15:26→20:08)
[2017-07-29] MEDS: PEPCID TAB 20 MG PO SCH (15:26)
[2017-07-29] MEDS: ZESTRIL TAB 20 MG PO SCH (15:26)
[2017-07-29] MEDS: LOVENOX INJ 40 MG SYR SC SCH (15:26)
[2017-07-29] MEDS: ANTIVERT TAB 25 MG PO SCH (20:08)
[2017-07-29] MEDS: CATAPRES TAB 0.1 MG PO SCH (20:08)
[2017-07-29] MEDS: BENADRYL CAP/TAB 25 MG PO PRN (20:09)
[2017-07-29] MEDS: D5W 1000 ML IV 1,000 ML IV SCH (21:31)
[2017-07-30] MEDS: DILAUDID INJ IVP PRN ×3 (05:32→13:02)
[2017-07-30 05:49] LABS: ALANINE AMINOTRANSFERASE 18 Units/L (12-78); ALBUMIN 3.6 g/dL (3.4-5.0); ALKALINE PHOSPHATASE 64 Units/L (46-116); ASPARTATE AMINO TRANSFERASE 15 Units/L (15-37); BLOOD UREA NITROGEN 30 mg/dL (7-18); CALCIUM 8.7 mg/dL (8.5-10.1); CHLORIDE 103 mmol/L (98-107); COR NA(FOR HYPERGLY) 137 mmol/L (136-145); CREATININE 2.34 mg/dL (0.55-1.02); SODIUM 137 mmol/L (136-145); TOTAL PROTEIN 7.3 g/dL (6.4-8.2); eGFR BLACK RACES 25 (>60); eGFR NON BLACK RACES 21 (>60)
[2017-07-30 05:54] LABS: BASOPHILS # (AUTO) 0.1 X10^3/uL (0.0-0.1); BASOPHILS % (AUTO) 0.4 % (0.2-1.0); EOSINOPHILS % (AUTO) 0.4 % (0.9-2.9); HEMATOCRIT 36.5 % (36.0-47.0); HEMOGLOBIN 12.4 g/dL (12.0-16.0); LYMPHOCYTES # (AUTO) 1.5 X10^3/uL (1.3-2.9); LYMPHOCYTES % (AUTO) 12.1 % (21.0-51.0); MEAN CORPUSCULAR HGB CONC 33.8 g/dL (33.0-35.0); MEAN CORPUSCULAR VOLUME 97.6 fL (80.0-100.0); MEAN PLATELET VOLUME 8.7 fL (7.4-11.0); MONOCYTES # (AUTO) 1.2 x10^3/uL (0.3-0.8); MONOCYTES % (AUTO) 9.4 % (0.0-13.0); NEUTROPHILS # (AUTO) 9.5 x10^3/uL (2.2-4.8); NEUTROPHILS % (AUTO) 77.7 % (42.0-75.0); PLATELET COUNT 184 X10^3/uL (150.0-450.0); RED BLOOD COUNT 3.74 X10^6/uL (3.5-5.4); RED CELL DISTRIBUTION WIDTH 13.8 % (11.6-16.5); WHITE BLOOD COUNT 12.3 X10^3/uL (3.6-10.0)
[2017-07-30] MEDS ORDERED: ZESTRIL TAB 20 MG ONE (08:21)
[2017-07-30] MEDS: LOVENOX INJ 40 MG SYR SC SCH (08:31)
[2017-07-30] MEDS: BENADRYL CAP/TAB 25 MG PO PRN (08:32)
[2017-07-30] MEDS: CELEXA PO SCH (08:32)
[2017-07-30] MEDS: PEPCID TAB 20 MG PO SCH (08:32)
[2017-07-30] MEDS: ZESTRIL TAB 20 MG PO SCH (08:32)
[2017-07-30] MEDS: COREG TAB 6.25 MG PO SCH ×2 (08:32→20:52)
[2017-07-30] MEDS ORDERED: ZOFRAN INJ 4 MG VIAL IVP PRN (12:41)
[2017-07-30] MEDS: ZOFRAN INJ 4 MG VIAL IVP PRN (17:02)
--- NOTE | 2017-07-30 20:31 | PCM.PROG ---
Progress Note - Progress Note for Day of Date: 07/30/17 - Subjective Subjective: IS ALERT AND ORIENTED, LYING IN BED ON MORNING ROUNDS. SHE CONTINUES WITH COMPLAINTS OF RIGHT LEG PAIN. VITALS THIS AM ARE 97.5-83-18- 96%-122/57. CBC WNL EXCEPT HGB 12.3. CMP WNL EXCEPT BUN 30, CREATININE 2.34, GLUCOSE 119. WE CONSULTED WITH . HE PLANS FOR SURGERY TOMORROW MORNING WHEN ALL SUPPLIES ARE HERE. WE WILL CONTINUE WITH CURRENT PLAN OF CARE AND RECHECK AM LABS AND CONTINUE FOLLOW UP WITH PATIENT. - Past Medical Family Social History Past Med/Fam/Surg Hx: No changes since H&P Allergies: Allergies cephalexin [From Keflex] Adverse Reaction (Verified 07/28/17 19:58) morphine Adverse Reaction (Verified 07/28/17 19:58) sertraline [From Zoloft] Adverse Reaction (Verified 07/28/17 19:58) - Review of Systems ROS: No change since H&P - Vital Signs and I&O's Vital Signs: Temperature 98.8 F Pulse Rate [Left Brachial] 79 Pulse Rate 54 Respiratory Rate 18 Blood Pressure [Left Arm] 131/61 Blood Pressure [Right Arm] 131/58 Blood Pressure [Standing] 145/70 Blood Pressure [Sitting] 149/65 Blood Pressure [Lying] 171/74 Blood Pressure 212/85 O2 Sat by Pulse Oximetry 94 Intake and Output: Intake & Output 07/28/17 07/29/17 07/30/17 07/31/17 11:59 11:59 11:59 11:59 Intake Total 10 1270 360 Output Total 800 250 200 Balance -790 1020 160 - Physical Exam Oriented: Normal Eyes: Normal Ear: Normal Nose: Normal Throat: Normal Respiratory: Normal Cardiovascular: Normal : Normal Auscultation: Bowel Sounds: Normal Palpation: Normal Tenderness: Normal Skin: Normal Musculoskeletal: Right, Hip, Thigh, Swelling, Tender, Deformity, Instability Psychiatric: Normal Mood Description: Calm Affect: Normal Speech Pattern: Clear, Appropriate - Laboratory and Diagnostics Result Diagrams: 07/30/17 04:00 07/30/17 04:00 Labs: Laboratory WBC 12.3 X10^3/uL (3.6-10.0) H 07/30/17 04:00 RBC 3.74 X10^6/uL (3.5-5.4) 07/30/17 04:00 Hgb 12.4 g/dL (12.0-16.0) 07/30/17 04:00 Hct 36.5 % (36.0-47.0) 07/30/17 04:00 MCV 97.6 fL (80.0-100.0) 07/30/17 04:00 MCH 33.0 pg (27.0-34.0) 07/30/17 04:00 MCHC 33.8 g/dL (33.0-35.0) 07/30/17 04:00 RDW 13.8 % (11.6-16.5) 07/30/17 04:00 Plt Count 184 X10^3/uL (150.0-450.0) 07/30/17 04:00 MPV 8.7 fL (7.4-11.0) 07/30/17 04:00 Neut % 77.7 % (42.0-75.0) H 07/30/17 04:00 Lymph % 12.1 % (21.0-51.0) L 07/30/17 04:00 [place] % 9.4 % (0.0-13.0) 07/30/17 04:00 Eos % 0.4 % (0.9-2.9) L 07/30/17 04:00 Baso % 0.4 % (0.2-1.0) 07/30/17 04:00 Neut # 9.5 x10^3/uL (2.2-4.8) H 07/30/17 04:00 Lymph # 1.5 X10^3/uL (1.3-2.9) 07/30/17 04:00 [place] # 1.2 x10^3/uL (0.3-0.8) H 07/30/17 04:00 Eos # 0.0 x10^3/uL (0.0-0.2) 07/30/17 04:00 Baso # 0.1 X10^3/uL (0.0-0.1) 07/30/17 04:00 Absolute Nucleated RBC 0.0 /100WBC 07/30/17 04:00 ESR 8 MM/HOUR (0-20) 07/28/17 15:41 INR Target Range - 07/28/17 15:41 INR 1.08 (0.8-1.3) 07/28/17 15:41 PTT 25.9 SECONDS (22.9-36.5) 07/28/17 15:41 PTT Comment - 07/28/17 15:41 Sodium 137 mmol/L (136-145) 07/30/17 04:00 Corrected Sodium 137 mmol/L (136-145) 07/30/17 04:00 Potassium 4.8 mmol/L (3.5-5.1) 07/30/17 04:00 Chloride 103 mmol/L (98-107) 07/30/17 04:00 Carbon Dioxide 25.0 mmol/L (21-32) 07/30/17 04:00 BUN 30 mg/dL (7-18) H 07/30/17 04:00 Creatinine 2.34 mg/dL (0.55-1.02) H 07/30/17 04:00 Est GFR (MDRD) Af Amer 25 (>60) L 07/30/17 04:00 Est GFR (MDRD) Non-Af 21 (>60) L 07/30/17 04:00 Glucose 119 mg/dL (65-99) H 07/30/17 04:00 Calcium 8.7 mg/dL (8.5-10.1) 07/30/17 04:00 Corrected Calcium TNP 07/30/17 04:00 Total Bilirubin 0.60 mg/dL (0.2-1.0) 07/30/17 04:00 AST 15 Units/L (15-37) 07/30/17 04:00 ALT 18 Units/L (12-78) 07/30/17 04:00 Alkaline Phosphatase 64 Units/L (46-116) 07/30/17 04:00 C-Reactive Protein < 0.50 mg/L (0-3.0) 07/28/17 15:41 Total Protein 7.3 g/dL (6.4-8.2) 07/30/17 04:00 Albumin 3.6 g/dL (3.4-5.0) 07/30/17 04:00 Globulin 3.7 g/dL (2.5-4.5) 07/30/17 04:00 Albumin/Globulin Ratio 1.0 Ratio (1.1-2.1) L 07/30/17 04:00 Specimen Type Catherized urine 07/28/17 16:48 Urine Color Yellow (YELLOW) 07/28/17 16:48 Urine Appearance Clear (CLEAR) 07/28/17 16:48 Urine pH 6.5 (5.0 - 8.0) 07/28/17 16:48 Ur Specific [place] 1.010 (1.000-1.030) 07/28/17 16:48 Urine Protein Negative (NEGATIVE) 07/28/17 16:48 Urine Glucose (UA) Negative (NEGATIVE) 07/28/17 16:48 Urine Ketones Negative (NEGATIVE) 07/28/17 16:48 Urine Occult Blood Negative (NEGATIVE) 07/28/17 16:48 Urine Nitrite Negative (NEGATIVE) 07/28/17 16:48 Urine Bilirubin Negative (NEGATIVE) 07/28/17 16:48 Urine Urobilinogen Normal (NORMAL) 07/28/17 16:48 Ur Leukocyte Esterase Negative (NEGATIVE) 07/28/17 16:48 Urine RBC None seen /HPF (NEGATIVE) 07/28/17 16:48 Urine WBC None seen /HPF (NEGATIVE) 07/28/17 16:48 Ur Squamous Epith Cells Rare /HPF (NEGATIVE) 07/28/17 16:48 Urine Bacteria Negative /HPF (NEGATIVE) 07/28/17 16:48 Ur Culture Indicated? No/not indicated 07/28/17 16:48 Blood Type B NEGATIVE 07/28/17 18:18 Antibody Screen Negative 07/28/17 18:18 Crossmatch See Detail 07/28/17 18:18 - Plan (1) Right femoral fracture Status: Acute Qualifiers: Encounter type: initial encounter Femur location: intertrochanteric Fracture type: closed Fracture alignment: displaced Qualified Code(s): S72.141A - Displaced intertrochanteric fracture of right femur, initial encounter for closed fracture Plan: SURGICAL CONSULT, DILAUDID 2MG Q1H PRN PAIN, TORADOL 30MG IV Q2H PRN PAIN , CONTINUE TO MONITOR (2) Depression Status: Chronic Qualifiers: Depression Type: major depressive disorder Major depression recurrence: recurrent Active/Remission status: currently active Major depression episode severity: moderate Qualified Code(s): F33.1 - Major depressive disorder, recurrent, moderate Plan: CONTINUE CELEXA 40MG PO DAILY, CONTINUE TO MONITOR (3) GERD (gastroesophageal reflux disease) Status: Chronic Qualifiers: Esophagitis presence: esophagitis presence not specified Qualified Code(s) : K21.9 - Gastro-esophageal reflux disease without esophagitis Plan: CONTINUE PEPCID 20MG DAILY, CONTINUE TO MONITOR (4) Hypertension Status: Chronic Qualifiers: Hypertension type: essential hypertension Qualified Code(s): I10 - Essential (primary) hypertension Plan: CONTINUE COREG 6.25MG BID, CONTINUE CATAPRES 0.1MG PO HS, CONTINUE LISINOPRIL 20MG PO DAILY, CONTINUE TO MONITOR (5) Vertigo Status: Chronic Plan: CONTINUE MECLIZINE 25MG PO HS, CONTINUE TO MONITOR
[2017-07-30] MEDS: CATAPRES TAB 0.1 MG PO SCH (20:52)
[2017-07-30] MEDS: ANTIVERT TAB 25 MG PO SCH (20:52)
[2017-07-30] MEDS: D5W 1000 ML IV 1,000 ML IV SCH (20:53)
[2017-07-31 06:07] LABS: BASOPHILS # (AUTO) 0.1 X10^3/uL (0.0-0.1); BASOPHILS % (AUTO) 0.4 % (0.2-1.0); EOSINOPHILS % (AUTO) 0.1 % (0.9-2.9); HEMATOCRIT 31.5 % (36.0-47.0); HEMOGLOBIN 10.8 g/dL (12.0-16.0); LYMPHOCYTES # (AUTO) 1.3 X10^3/uL (1.3-2.9); LYMPHOCYTES % (AUTO) 9.1 % (21.0-51.0); MEAN CORPUSCULAR HEMOGLOBIN 33.5 pg (27.0-34.0); MEAN CORPUSCULAR HGB CONC 34.3 g/dL (33.0-35.0); MEAN CORPUSCULAR VOLUME 97.5 fL (80.0-100.0); MEAN PLATELET VOLUME 8.5 fL (7.4-11.0); MONOCYTES % (AUTO) 7.2 % (0.0-13.0); NEUTROPHILS # (AUTO) 11.8 x10^3/uL (2.2-4.8); NEUTROPHILS % (AUTO) 83.2 % (42.0-75.0); PLATELET COUNT 200 X10^3/uL (150.0-450.0); RED BLOOD COUNT 3.23 X10^6/uL (3.5-5.4); RED CELL DISTRIBUTION WIDTH 13.6 % (11.6-16.5); WHITE BLOOD COUNT 14.2 X10^3/uL (3.6-10.0)
[2017-07-31 06:46] LABS: ALBUMIN 3.3 g/dL (3.4-5.0); CALCIUM 8.5 mg/dL (8.5-10.1); CARBON DIOXIDE 22.1 mmol/L (21-32); COR CA(FOR HYPOALB) 9.1 mg/dL (8.5-10.1); CREATININE 2.95 mg/dL (0.55-1.02); TOTAL PROTEIN 6.9 g/dL (6.4-8.2)
[2017-07-31] MEDS ORDERED: LR 1000 ML IV 1,000 ML IV ONE (07:05)
[2017-07-31] MEDS ORDERED: NS 50 ML IV + SPIKE MINIBAG* 50 ML IV ONE (07:05)
[2017-07-31] MEDS ORDERED: ANCEF VIAL 1 GM ONE (07:05)
[2017-07-31] MEDS ORDERED: MARCAINE 0.25% WITH EPI IJ ONE (07:10)
[2017-07-31] MEDS ORDERED: FENTANYL INJ 100 mcg ONE ×2 (07:21→10:47)
[2017-07-31] MEDS: CLEOCIN VIAL 600 MG ONE ×3 (07:45→12:08)
[2017-07-31] MEDS ORDERED: NS 1000 ML 1,000 ML ONE (07:46)
[2017-07-31] MEDS ORDERED: FENTANYL INJ 250 mcg ONE (08:38)
[2017-07-31] MEDS ORDERED: NS IRRIGATION 1000 ML 1,000 ML with BACITRACIN VIAL 50,000 UNT IR ONE ×4 (08:52→11:35)
[2017-07-31] MEDS ORDERED: NS IRRIGATION 3000 ML 3,000 ML with BACITRACIN VIAL 50,000 UNT IR ONE ×6 (08:52)
[2017-07-31] MEDS ORDERED: POLYMYXIN B SULFATE IR ONE (09:25)
[2017-07-31] MEDS ORDERED: NS 500 ML IV 500 ML IV ONE (09:31)
[2017-07-31] MEDS: ZESTRIL TAB 20 MG PO SCH (09:33)
[2017-07-31] MEDS: PEPCID TAB 20 MG PO SCH (09:34)
[2017-07-31] MEDS: CELEXA PO SCH (09:34)
--- NOTE | 2017-07-31 10:31 | PCM.PROG ---
Progress Note - Progress Note for Day of Date: 07/31/17 - Subjective Subjective: IS ALERT AND ORIENTED, LYING IN BED ON MORNING ROUNDS. SHE CONTINUES WITH COMPLAINTS OF RIGHT LEG PAIN. VITALS THIS AM ARE 97.5-73-18- 97%-119/56. CBC WNL EXCEPT HGB 14.2, RBC 3.23, HGB 10.8, HCT 31.5. CMP WNL EXCEPT BUN 54, CREATININE 2.95, GLUCOSE 125, ALBUMIN 3.3. PATIENT IS SCHEDULED FOR SURGERY WITH THIS AM. WE WILL CONTINUE WITH CURRENT PLAN OF CARE AND RECHECK AM LABS AND CONTINUE FOLLOW UP WITH PATIENT. - Past Medical Family Social History Past Med/Fam/Surg Hx: No changes since H&P Allergies: Allergies cephalexin [From Keflex] Adverse Reaction (Verified 07/28/17 19:58) morphine Adverse Reaction (Verified 07/28/17 19:58) sertraline [From Zoloft] Adverse Reaction (Verified 07/28/17 19:58) - Review of Systems ROS: No change since H&P - Vital Signs and I&O's Vital Signs: Temperature 97.5 F Pulse Rate [Left Brachial] 70 Pulse Rate 73 Respiratory Rate 18 Blood Pressure [Left Arm] 116/56 Blood Pressure [Right Arm] 115/51 Blood Pressure [Standing] 145/70 Blood Pressure [Sitting] 149/65 Blood Pressure [Lying] 171/74 Blood Pressure 119/56 O2 Sat by Pulse Oximetry 97 Intake and Output: Intake & Output 07/28/17 07/29/17 07/30/17 07/31/17 11:59 11:59 11:59 11:59 Intake Total 10 1270 1950 Output Total 800 250 550 Balance -790 1020 1400 - Physical Exam Oriented: Normal Eyes: Normal Ear: Normal Nose: Normal Throat: Normal Respiratory: Normal Cardiovascular: Normal : Normal Auscultation: Bowel Sounds: Normal Palpation: Normal Tenderness: Normal Skin: Normal Musculoskeletal: Right, Hip, Thigh, Swelling, Tender, Deformity, Instability Psychiatric: Normal Mood Description: Calm Affect: Normal Speech Pattern: Clear, Appropriate - Laboratory and Diagnostics Result Diagrams: 07/31/17 03:45 07/31/17 03:45 Labs: Laboratory WBC 14.2 X10^3/uL (3.6-10.0) H 07/31/17 03:45 RBC 3.23 X10^6/uL (3.5-5.4) L 07/31/17 03:45 Hgb 10.8 g/dL (12.0-16.0) L 07/31/17 03:45 Hct 31.5 % (36.0-47.0) L 07/31/17 03:45 MCV 97.5 fL (80.0-100.0) 07/31/17 03:45 MCH 33.5 pg (27.0-34.0) 07/31/17 03:45 MCHC 34.3 g/dL (33.0-35.0) 07/31/17 03:45 RDW 13.6 % (11.6-16.5) 07/31/17 03:45 Plt Count 200 X10^3/uL (150.0-450.0) 07/31/17 03:45 MPV 8.5 fL (7.4-11.0) 07/31/17 03:45 Neut % 83.2 % (42.0-75.0) H 07/31/17 03:45 Lymph % 9.1 % (21.0-51.0) L 07/31/17 03:45 [place] % 7.2 % (0.0-13.0) 07/31/17 03:45 Eos % 0.1 % (0.9-2.9) L 07/31/17 03:45 Baso % 0.4 % (0.2-1.0) 07/31/17 03:45 Neut # 11.8 x10^3/uL (2.2-4.8) H 07/31/17 03:45 Lymph # 1.3 X10^3/uL (1.3-2.9) 07/31/17 03:45 [place] # 1.0 x10^3/uL (0.3-0.8) H 07/31/17 03:45 Eos # 0.0 x10^3/uL (0.0-0.2) 07/31/17 03:45 Baso # 0.1 X10^3/uL (0.0-0.1) 07/31/17 03:45 Absolute Nucleated RBC 0.0 /100WBC 07/31/17 03:45 ESR 8 MM/HOUR (0-20) 07/28/17 15:41 INR Target Range - 07/28/17 15:41 INR 1.08 (0.8-1.3) 07/28/17 15:41 PTT 25.9 SECONDS (22.9-36.5) 07/28/17 15:41 PTT Comment - 07/28/17 15:41 Sodium 136 mmol/L (136-145) 07/31/17 03:45 Corrected Sodium 137 mmol/L (136-145) 07/31/17 03:45 Potassium 4.5 mmol/L (3.5-5.1) 07/31/17 03:45 Chloride 100 mmol/L (98-107) 07/31/17 03:45 Carbon Dioxide 22.1 mmol/L (21-32) 07/31/17 03:45 BUN 54 mg/dL (7-18) H 07/31/17 03:45 Creatinine 2.95 mg/dL (0.55-1.02) H 07/31/17 03:45 Est GFR (MDRD) Af Amer 19 (>60) L 07/31/17 03:45 Est GFR (MDRD) Non-Af 16 (>60) L 07/31/17 03:45 Glucose 125 mg/dL (65-99) H 07/31/17 03:45 Calcium 8.5 mg/dL (8.5-10.1) 07/31/17 03:45 Corrected Calcium 9.1 mg/dL (8.5-10.1) 07/31/17 03:45 Total Bilirubin 0.50 mg/dL (0.2-1.0) 07/31/17 03:45 AST 15 Units/L (15-37) 07/31/17 03:45 ALT 18 Units/L (12-78) 07/31/17 03:45 Alkaline Phosphatase 60 Units/L (46-116) 07/31/17 03:45 C-Reactive Protein < 0.50 mg/L (0-3.0) 07/28/17 15:41 Total Protein 6.9 g/dL (6.4-8.2) 07/31/17 03:45 Albumin 3.3 g/dL (3.4-5.0) L 07/31/17 03:45 Globulin 3.6 g/dL (2.5-4.5) 07/31/17 03:45 Albumin/Globulin Ratio 0.9 Ratio (1.1-2.1) L 07/31/17 03:45 Specimen Type Catherized urine 07/28/17 16:48 Urine Color Yellow (YELLOW) 07/28/17 16:48 Urine Appearance Clear (CLEAR) 07/28/17 16:48 Urine pH 6.5 (5.0 - 8.0) 07/28/17 16:48 Ur Specific [place] 1.010 (1.000-1.030) 07/28/17 16:48 Urine Protein Negative (NEGATIVE) 07/28/17 16:48 Urine Glucose (UA) Negative (NEGATIVE) 07/28/17 16:48 Urine Ketones Negative (NEGATIVE) 07/28/17 16:48 Urine Occult Blood Negative (NEGATIVE) 07/28/17 16:48 Urine Nitrite Negative (NEGATIVE) 07/28/17 16:48 Urine Bilirubin Negative (NEGATIVE) 07/28/17 16:48 Urine Urobilinogen Normal (NORMAL) 07/28/17 16:48 Ur Leukocyte Esterase Negative (NEGATIVE) 07/28/17 16:48 Urine RBC None seen /HPF (NEGATIVE) 07/28/17 16:48 Urine WBC None seen /HPF (NEGATIVE) 07/28/17 16:48 Ur Squamous Epith Cells Rare /HPF (NEGATIVE) 07/28/17 16:48 Urine Bacteria Negative /HPF (NEGATIVE) 07/28/17 16:48 Ur Culture Indicated? No/not indicated 07/28/17 16:48 Blood Type B NEGATIVE 07/28/17 18:18 Antibody Screen Negative 07/28/17 18:18 Crossmatch See Detail 07/28/17 18:18 - Plan (1) Right femoral fracture Status: Acute Qualifiers: Encounter type: initial encounter Femur location: intertrochanteric Fracture type: closed Fracture alignment: displaced Qualified Code(s): S72.141A - Displaced intertrochanteric fracture of right femur, initial encounter for closed fracture Plan: SURGICAL CONSULT, DILAUDID 2MG Q1H PRN PAIN, TORADOL 30MG IV Q2H PRN PAIN , CONTINUE TO MONITOR (2) Depression Status: Chronic Qualifiers: Depression Type: major depressive disorder Major depression recurrence: recurrent Active/Remission status: currently active Major depression episode severity: moderate Qualified Code(s): F33.1 - Major depressive disorder, recurrent, moderate Plan: CONTINUE CELEXA 40MG PO DAILY, CONTINUE TO MONITOR (3) GERD (gastroesophageal reflux disease) Status: Chronic Qualifiers: Esophagitis presence: esophagitis presence not specified Qualified Code(s) : K21.9 - Gastro-esophageal reflux disease without esophagitis Plan: CONTINUE PEPCID 20MG DAILY, CONTINUE TO MONITOR (4) Hypertension Status: Chronic Qualifiers: Hypertension type: essential hypertension Qualified Code(s): I10 - Essential (primary) hypertension Plan: CONTINUE COREG 6.25MG BID, CONTINUE CATAPRES 0.1MG PO HS, CONTINUE LISINOPRIL 20MG PO DAILY, CONTINUE TO MONITOR (5) Vertigo Status: Chronic Plan: CONTINUE MECLIZINE 25MG PO HS, CONTINUE TO MONITOR
[2017-07-31] MEDS ORDERED: DILAUDID INJ ONE (10:47)
[2017-07-31] MEDS ORDERED: BACITRACIN VIAL ONE (11:20)
[2017-07-31] MEDS ORDERED: CLEOCIN 300 MG IV PREMIX 300 MG/50 ML BAG IV ONE ×2 (11:59→12:01)
[2017-07-31] MEDS: LR 1000 ML IV 1,000 ML IV ONE ×2 (12:17→12:19)
[2017-07-31] MEDS ORDERED: BACTROBAN OINT ONE (13:34)
[2017-07-31] MEDS: COREG TAB 6.25 MG PO SCH ×2 (14:38→20:49)
[2017-07-31] MEDS: LOVENOX INJ 40 MG SYR SC SCH (14:38)
[2017-07-31] MEDS ORDERED: PHENERGAN INJ 25 MG IVP PRN (14:45)
[2017-07-31] MEDS ORDERED: DILAUDID INJ IVP PRN (14:45)
[2017-07-31] MEDS ORDERED: BENADRYL INJ 50 MG VIAL IVP PRN (14:45)
[2017-07-31] MEDS ORDERED: ZOFRAN INJ 4 MG VIAL IVP PRN (14:45)
[2017-07-31] MEDS ORDERED: REGLAN INJ 10 MG VIAL IVP PRN (14:45)
[2017-07-31] MEDS ORDERED: MORPHINE SULFATE PCA 30 MG IV PRN (15:03)
[2017-07-31] MEDS ORDERED: QUELICIN (OR ANECTINE) ONE (15:41)
[2017-07-31] MEDS ORDERED: EPHEDRINE SULFATE INJ ONE (15:41)
[2017-07-31] MEDS ORDERED: DIPRIVAN VIAL ONE (15:41)
[2017-07-31] MEDS ORDERED: SUPRANE IN ONE (15:41)
[2017-07-31] MEDS ORDERED: ROBINUL ONE (15:41)
[2017-07-31] MEDS ORDERED: VERSED ONE (15:41)
[2017-07-31] MEDS ORDERED: NORCURON INJ 10 MG VIAL ONE (15:41)
[2017-07-31] MEDS ORDERED: XYLOCAINE 2 % (PLAIN) ONE (15:41)
[2017-07-31] MEDS ORDERED: NEOSTIGMINE INJ ONE (15:41)
--- NOTE | 2017-07-31 15:49 | RAD ---
HISTORY: Postop right hip. Study: Three views of the right hip. Comparison: Right hip series dated July 28, 2017. Findings: Patient is status post ORIF with plate and screw fixation of a right subtrochanteric hip fracture. Ce rclage wires are also placed. Right hip arthroplasty appears intact. Expected postsurgical changes. N ear anatomic alignment. Left hip arthroplasty and remaining osseous structures appear intact. IMPRESSION: Postsurgical changes. Reported By:
[2017-07-31] MEDS: VANCOMYCIN 1 GM PREMIX (ADDVANTAGE) 250 ML IV SCH (16:42)
[2017-07-31] MEDS: D5W 1000 ML IV 1,000 ML IV SCH ×2 (16:42→23:54)
[2017-07-31] MEDS: CATAPRES TAB 0.1 MG PO SCH (20:49)
[2017-07-31] MEDS: ANTIVERT TAB 25 MG PO SCH (20:49)
[2017-07-31] MEDS: DILAUDID INJ IVP PRN (20:49)
[2017-08-01] MEDS: DILAUDID INJ IVP PRN (02:31)
[2017-08-01 05:19] LABS: BASOPHILS % (AUTO) 0.3 % (0.2-1.0); EOSINOPHILS % (AUTO) 0.2 % (0.9-2.9); HEMATOCRIT 34.7 % (36.0-47.0); HEMOGLOBIN 11.8 g/dL (12.0-16.0); LYMPHOCYTES # (AUTO) 0.8 X10^3/uL (1.3-2.9); LYMPHOCYTES % (AUTO) 7.3 % (21.0-51.0); MEAN CORPUSCULAR HEMOGLOBIN 31.6 pg (27.0-34.0); MEAN CORPUSCULAR HGB CONC 34.1 g/dL (33.0-35.0); MEAN CORPUSCULAR VOLUME 92.6 fL (80.0-100.0); MEAN PLATELET VOLUME 8.6 fL (7.4-11.0); MONOCYTES # (AUTO) 0.8 x10^3/uL (0.3-0.8); NEUTROPHILS # (AUTO) 9.7 x10^3/uL (2.2-4.8); NEUTROPHILS % (AUTO) 85.2 % (42.0-75.0); PLATELET COUNT 181 X10^3/uL (150.0-450.0); RED BLOOD COUNT 3.75 X10^6/uL (3.5-5.4); RED CELL DISTRIBUTION WIDTH 16.7 % (11.6-16.5); WHITE BLOOD COUNT 11.3 X10^3/uL (3.6-10.0)
[2017-08-01 05:39] LABS: ALBUMIN 2.7 g/dL (3.4-5.0); CALCIUM 7.9 mg/dL (8.5-10.1); COR CA(FOR HYPOALB) 8.9 mg/dL (8.5-10.1); CREATININE 2.18 mg/dL (0.55-1.02); TOTAL PROTEIN 5.8 g/dL (6.4-8.2)
[2017-08-01 06:04] LABS: BAND NEUTROPHILS % 20 % (0-10); PLATELET MORPHOLOGY COMMENT NORMAL (NORMAL)
[2017-08-01] MEDS ORDERED: ZESTRIL TAB 20 MG ONE (09:06)
[2017-08-01] MEDS: VANCOMYCIN 1 GM PREMIX (ADDVANTAGE) 250 ML IV SCH (10:23)
[2017-08-01] MEDS: LOVENOX INJ 40 MG SYR SC SCH (10:23)
[2017-08-01] MEDS: PEPCID TAB 20 MG PO SCH (10:24)
[2017-08-01] MEDS: CELEXA PO SCH (10:24)
[2017-08-01] MEDS: COREG TAB 6.25 MG PO SCH ×2 (10:24→20:34)
[2017-08-01] MEDS: ZESTRIL TAB 20 MG PO SCH (10:25)
[2017-08-01] MEDS: ANTIVERT TAB 25 MG PO SCH (20:34)
[2017-08-01] MEDS: CATAPRES TAB 0.1 MG PO SCH (20:35)
--- NOTE | 2017-08-01 21:25 | PCM.PROG ---
Progress Note - Progress Note for Day of Date: 08/01/17 - Subjective Subjective: IS ALERT AND ORIENTED, LYING IN BED ON MORNING ROUNDS. SHE IS STATUS POST ORIF OF THE RIGHT FEMUR. SHE IS NOTED WITH CONTINUED PAIN TO THE RIGHT HIP/LEG. DRESSING NOTED TO RIGHT HIP/LEG DRY AND INTACT WITH NO SIGNS OF INFECTION NOTED TO AREA SURROUNDING DRESSING. PATIENT REPORTS THAT THE PAIN MEDICATION DOES SEEM TO HELP WHEN SHE TAKES IT, HOWEVER, IT MAKES HER SOMEWHAT DROWSY AND ALTERED AND SHE WOULD RATHER NOT TAKE TOO MUCH OF IT. PATIENT EDUCATED ON PAIN MEDICATION AND INSTRUCTED THE IMPORTANCE OF TAKING MEDICATION NEEDED FOR PAIN IN ORDER TO BE ABLE TO COOPERATE WITH PHYSICAL THERAPY EFFICIENTLY POSSIBLE. VITALS THIS AM ARE 97.6-67-20-94%-125/68. LABS WERE OBTAINED. ABNORMAL LAB VALUES INCLUDE CBC WBC 11.3, HGB 11.8, HCT 34.7, SODIUM 135, BUN 50, CREATININE 2.18, GLUCOSE 115, CALCIUM 7.9, AST INCREASED TO 156, ALT INCREASED TO 151, TOTAL PROTEIN 5.8, ALBUMIN 2.7. PATIENT WILL RECEIVE PHYSICAL THERAPY AND OCCUPATIONAL THERAPY. SHE WAS STARTED ON VANCOMYCIN 1GM IV DAILY FOR AN INCREASED WBC YESTERDAY. WE WILL CONTINUE WITH CURRENT PLAN OF CARE AND RECHECK AM LABS AND CONTINUE FOLLOW UP WITH PATIENT. - Past Medical Family Social History Past Med/Fam/Surg Hx: No changes since H&P Allergies: Allergies cephalexin [From Keflex] Adverse Reaction (Verified 07/28/17 19:58) morphine Adverse Reaction (Verified 07/28/17 19:58) sertraline [From Zoloft] Adverse Reaction (Verified 07/28/17 19:58) - Review of Systems ROS: No change since H&P - Vital Signs and I&O's Vital Signs: Temperature 98.3 F Pulse Rate [Left Brachial] 95 Pulse Rate 82 Respiratory Rate 21 Blood Pressure [Left Arm] 105/54 Blood Pressure [Right Arm] 115/57 Blood Pressure [Standing] 145/70 Blood Pressure [Sitting] 149/65 Blood Pressure [Lying] 171/74 Blood Pressure 128/60 O2 Sat by Pulse Oximetry 96 Intake and Output: Intake & Output 07/30/17 07/31/17 08/01/17 08/02/17 11:59 11:59 11:59 11:59 Intake Total 1270 1950 420 320 Output Total 112 896 8669 300 Balance 1020 1400 -6963 20 - Physical Exam Oriented: Normal Eyes: Normal Ear: Normal Nose: Normal Throat: Normal Respiratory: Normal Cardiovascular: Normal : Normal Auscultation: Bowel Sounds: Normal Palpation: Normal Tenderness: Normal Skin: Wound (SURGICAL WOUND TO RIGHT HIP/LEG ) Musculoskeletal: Right, Hip, Thigh, Swelling, Tender, Deformity, Instability Psychiatric: Normal Mood Description: Calm Affect: Normal Speech Pattern: Clear, Appropriate - Laboratory and Diagnostics Result Diagrams: 08/01/17 03:20 08/01/17 03:20 Labs: Laboratory WBC 11.3 X10^3/uL (3.6-10.0) H 08/01/17 03:20 RBC 3.75 X10^6/uL (3.5-5.4) 08/01/17 03:20 Hgb 11.8 g/dL (12.0-16.0) L 08/01/17 03:20 Hct 34.7 % (36.0-47.0) L 08/01/17 03:20 MCV 92.6 fL (80.0-100.0) 08/01/17 03:20 MCH 31.6 pg (27.0-34.0) 08/01/17 03:20 MCHC 34.1 g/dL (33.0-35.0) 08/01/17 03:20 RDW 16.7 % (11.6-16.5) H 08/01/17 03:20 Plt Count 181 X10^3/uL (150.0-450.0) 08/01/17 03:20 Plt Count Comment Adequate (ADEQUATE) 08/01/17 03:20 MPV 8.6 fL (7.4-11.0) 08/01/17 03:20 Neut % 85.2 % (42.0-75.0) H 08/01/17 03:20 Lymph % 7.3 % (21.0-51.0) L 08/01/17 03:20 [place] % 7.0 % (0.0-13.0) 08/01/17 03:20 Eos % 0.2 % (0.9-2.9) L 08/01/17 03:20 Baso % 0.3 % (0.2-1.0) 08/01/17 03:20 Neut # 9.7 x10^3/uL (2.2-4.8) H 08/01/17 03:20 Lymph # 0.8 X10^3/uL (1.3-2.9) L 08/01/17 03:20 [place] # 0.8 x10^3/uL (0.3-0.8) 08/01/17 03:20 Eos # 0.0 x10^3/uL (0.0-0.2) 08/01/17 03:20 Baso # 0.0 X10^3/uL (0.0-0.1) 08/01/17 03:20 Absolute Nucleated RBC 0.1 /100WBC 08/01/17 03:20 Total Counted 100 08/01/17 03:20 Neutrophils % (Manual) 59 % (39-76) 08/01/17 03:20 Band Neutrophils % 20 % (0-10) H 08/01/17 03:20 Lymphocytes % (Manual) 13 % (13-43) 08/01/17 03:20 Monocytes % (Manual) 8 % (4-9) 08/01/17 03:20 Plt Morphology Comment Normal (NORMAL) 08/01/17 03:20 RBC Morphology Normal (NORMAL) 08/01/17 03:20 ESR 8 MM/HOUR (0-20) 07/28/17 15:41 INR Target Range - 07/28/17 15:41 INR 1.08 (0.8-1.3) 07/28/17 15:41 PTT 25.9 SECONDS (22.9-36.5) 07/28/17 15:41 PTT Comment - 07/28/17 15:41 Sodium 135 mmol/L (136-145) L 08/01/17 03:20 Corrected Sodium 135 mmol/L (136-145) L 08/01/17 03:20 Potassium 4.8 mmol/L (3.5-5.1) 08/01/17 03:20 Chloride 104 mmol/L (98-107) 08/01/17 03:20 Carbon Dioxide 20.0 mmol/L (21-32) L 08/01/17 03:20 BUN 50 mg/dL (7-18) H 08/01/17 03:20 Creatinine 2.18 mg/dL (0.55-1.02) H 08/01/17 03:20 Est GFR (MDRD) Af Amer 28 (>60) L 08/01/17 03:20 Est GFR (MDRD) Non-Af 23 (>60) L 08/01/17 03:20 Glucose 115 mg/dL (65-99) H 08/01/17 03:20 Calcium 7.9 mg/dL (8.5-10.1) L 08/01/17 03:20 Corrected Calcium 8.9 mg/dL (8.5-10.1) 08/01/17 03:20 Total Bilirubin 0.80 mg/dL (0.2-1.0) 08/01/17 03:20 AST 156 Units/L (15-37) H 08/01/17 03:20 ALT 151 Units/L (12-78) H 08/01/17 03:20 Alkaline Phosphatase 93 Units/L (46-116) 08/01/17 03:20 C-Reactive Protein < 0.50 mg/L (0-3.0) 07/28/17 15:41 Total Protein 5.8 g/dL (6.4-8.2) L 08/01/17 03:20 Albumin 2.7 g/dL (3.4-5.0) L 08/01/17 03:20 Globulin 3.1 g/dL (2.5-4.5) 08/01/17 03:20 Albumin/Globulin Ratio 0.9 Ratio (1.1-2.1) L 08/01/17 03:20 Specimen Type Catherized urine 07/28/17 16:48 Urine Color Yellow (YELLOW) 07/28/17 16:48 Urine Appearance Clear (CLEAR) 07/28/17 16:48 Urine pH 6.5 (5.0 - 8.0) 07/28/17 16:48 Ur Specific [place] 1.010 (1.000-1.030) 07/28/17 16:48 Urine Protein Negative (NEGATIVE) 07/28/17 16:48 Urine Glucose (UA) Negative (NEGATIVE) 07/28/17 16:48 Urine Ketones Negative (NEGATIVE) 07/28/17 16:48 Urine Occult Blood Negative (NEGATIVE) 07/28/17 16:48 Urine Nitrite Negative (NEGATIVE) 07/28/17 16:48 Urine Bilirubin Negative (NEGATIVE) 07/28/17 16:48 Urine Urobilinogen Normal (NORMAL) 07/28/17 16:48 Ur Leukocyte Esterase Negative (NEGATIVE) 07/28/17 16:48 Urine RBC None seen /HPF (NEGATIVE) 07/28/17 16:48 Urine WBC None seen /HPF (NEGATIVE) 07/28/17 16:48 Ur Squamous Epith Cells Rare /HPF (NEGATIVE) 07/28/17 16:48 Urine Bacteria Negative /HPF (NEGATIVE) 07/28/17 16:48 Ur Culture Indicated? No/not indicated 07/28/17 16:48 Blood Type B NEGATIVE 07/28/17 18:18 Antibody Screen Negative 07/28/17 18:18 Crossmatch See Detail 07/28/17 18:18 - Plan (1) Right femoral fracture Status: Acute Qualifiers: Encounter type: initial encounter Femur location: intertrochanteric Fracture type: closed Fracture alignment: displaced Qualified Code(s): S72.141A - Displaced intertrochanteric fracture of right femur, initial encounter for closed fracture Plan: OPEN REDUCTION INTERNAL FIXATION, DILAUDID 2MG Q1H PRN PAIN, TORADOL 30MG IV Q2H PRN PAIN, CONTINUE TO MONITOR (2) Depression Status: Chronic Qualifiers: Depression Type: major depressive disorder Major depression recurrence: recurrent Active/Remission status: currently active Major depression episode severity: moderate Qualified Code(s): F33.1 - Major depressive disorder, recurrent, moderate Plan: CONTINUE CELEXA 40MG PO DAILY, CONTINUE TO MONITOR (3) GERD (gastroesophageal reflux disease) Status: Chronic Qualifiers: Esophagitis presence: esophagitis presence not specified Qualified Code(s) : K21.9 - Gastro-esophageal reflux disease without esophagitis Plan: CONTINUE PEPCID 20MG DAILY, CONTINUE TO MONITOR (4) Hypertension Status: Chronic Qualifiers: Hypertension type: essential hypertension Qualified Code(s): I10 - Essential (primary) hypertension Plan: CONTINUE COREG 6.25MG BID, CONTINUE CATAPRES 0.1MG PO HS, CONTINUE LISINOPRIL 20MG PO DAILY, CONTINUE TO MONITOR (5) Vertigo Status: Chronic Plan: CONTINUE MECLIZINE 25MG PO HS, CONTINUE TO MONITOR
[2017-08-02] MEDS: BENADRYL CAP/TAB 25 MG PO PRN ×2 (02:16→20:12)
[2017-08-02] MEDS: NORCO 5/325 MG TAB PO PRN ×3 (02:31→20:12)
[2017-08-02 06:00] LABS: ALBUMIN 2.1 g/dL (3.4-5.0); CALCIUM 7.7 mg/dL (8.5-10.1); CARBON DIOXIDE 23.5 mmol/L (21-32); COR CA(FOR HYPOALB) 9.2 mg/dL (8.5-10.1); CREATININE 1.9 mg/dL (0.55-1.02); TOTAL PROTEIN 5.1 g/dL (6.4-8.2)
[2017-08-02 06:09] LABS: BASOPHILS % (AUTO) 0.3 % (0.2-1.0); EOSINOPHILS # (AUTO) 0.1 x10^3/uL (0.0-0.2); EOSINOPHILS % (AUTO) 1.2 % (0.9-2.9); HEMATOCRIT 26.5 % (36.0-47.0); HEMOGLOBIN 9.3 g/dL (12.0-16.0); LYMPHOCYTES # (AUTO) 0.8 X10^3/uL (1.3-2.9); LYMPHOCYTES % (AUTO) 8.1 % (21.0-51.0); MEAN CORPUSCULAR HEMOGLOBIN 32.2 pg (27.0-34.0); MEAN CORPUSCULAR HGB CONC 35.2 g/dL (33.0-35.0); MEAN CORPUSCULAR VOLUME 91.6 fL (80.0-100.0); MEAN PLATELET VOLUME 8.1 fL (7.4-11.0); MONOCYTES # (AUTO) 0.8 x10^3/uL (0.3-0.8); MONOCYTES % (AUTO) 8.6 % (0.0-13.0); NEUTROPHILS # (AUTO) 7.7 x10^3/uL (2.2-4.8); NEUTROPHILS % (AUTO) 81.8 % (42.0-75.0); PLATELET COUNT 143 X10^3/uL (150.0-450.0); RED BLOOD COUNT 2.89 X10^6/uL (3.5-5.4); RED CELL DISTRIBUTION WIDTH 16.5 % (11.6-16.5); WHITE BLOOD COUNT 9.4 X10^3/uL (3.6-10.0)
[2017-08-02] MEDS: ALBUMIN HUMAN 25%- 100ML 100 ML IV SCH ×2 (07:19→10:46)
[2017-08-02] MEDS ORDERED: ZESTRIL TAB 20 MG ONE (08:23)
[2017-08-02] MEDS: LOVENOX INJ 40 MG SYR SC SCH (09:18)
[2017-08-02] MEDS: COREG TAB 6.25 MG PO SCH ×2 (09:18→20:12)
[2017-08-02] MEDS: ZESTRIL TAB 20 MG PO SCH (09:18)
[2017-08-02] MEDS: PEPCID TAB 20 MG PO SCH (09:18)
[2017-08-02] MEDS: CELEXA PO SCH (09:18)
[2017-08-02] MEDS: VANCOMYCIN 1 GM PREMIX (ADDVANTAGE) 250 ML IV SCH (10:46)
[2017-08-02] MEDS: TORADOL 30 MG VIAL IVP SCH (15:10)
[2017-08-02] MEDS: D5W 1000 ML IV 1,000 ML IV SCH (19:28)
[2017-08-02] MEDS: CLEOCIN PO SCH (20:12)
[2017-08-02] MEDS: CATAPRES TAB 0.1 MG PO SCH (20:12)
[2017-08-02] MEDS: ANTIVERT TAB 25 MG PO SCH (20:12)
[2017-08-03] MEDS ORDERED: PHENERGAN INJ 25 MG IM PRN (01:06)
[2017-08-03] MEDS: TORADOL 30 MG VIAL IVP SCH ×3 (01:51→21:59)
[2017-08-03] MEDS: DILAUDID INJ IVP PRN (01:52)
[2017-08-03 05:16] LABS: BASOPHILS % (AUTO) 0.2 % (0.2-1.0); EOSINOPHILS # (AUTO) 0.1 x10^3/uL (0.0-0.2); EOSINOPHILS % (AUTO) 0.4 % (0.9-2.9); HEMATOCRIT 31.7 % (36.0-47.0); HEMOGLOBIN 10.8 g/dL (12.0-16.0); LYMPHOCYTES # (AUTO) 0.9 X10^3/uL (1.3-2.9); LYMPHOCYTES % (AUTO) 5.6 % (21.0-51.0); MEAN CORPUSCULAR HEMOGLOBIN 31.8 pg (27.0-34.0); MEAN CORPUSCULAR HGB CONC 34.2 g/dL (33.0-35.0); MEAN PLATELET VOLUME 7.9 fL (7.4-11.0); MONOCYTES # (AUTO) 1.3 x10^3/uL (0.3-0.8); MONOCYTES % (AUTO) 7.7 % (0.0-13.0); NEUTROPHILS # (AUTO) 14.5 x10^3/uL (2.2-4.8); NEUTROPHILS % (AUTO) 86.1 % (42.0-75.0); PLATELET COUNT 231 X10^3/uL (150.0-450.0); RED BLOOD COUNT 3.41 X10^6/uL (3.5-5.4); WHITE BLOOD COUNT 16.8 X10^3/uL (3.6-10.0)
[2017-08-03 05:17] LABS: CALCIUM 8.5 mg/dL (8.5-10.1); CARBON DIOXIDE 24.7 mmol/L (21-32); CREATININE 1.7 mg/dL (0.55-1.02)
[2017-08-03 05:59] LABS: BAND NEUTROPHILS % 6 % (0-10)
[2017-08-03 06:00] LABS: PLATELET MORPHOLOGY COMMENT NORMAL (NORMAL)
[2017-08-03] MEDS ORDERED: ZESTRIL TAB 20 MG ONE (07:42)
[2017-08-03] MEDS: ALBUMIN HUMAN 25%- 100ML 100 ML IV SCH (09:01)
[2017-08-03] MEDS: LOVENOX INJ 40 MG SYR SC SCH (09:02)
[2017-08-03] MEDS: PEPCID TAB 20 MG PO SCH (09:03)
[2017-08-03] MEDS: CLEOCIN PO SCH ×2 (09:03→21:56)
[2017-08-03] MEDS: ZESTRIL TAB 20 MG PO SCH (09:03)
[2017-08-03] MEDS: COREG TAB 6.25 MG PO SCH ×2 (09:03→21:57)
[2017-08-03] MEDS: CELEXA PO SCH (09:03)
[2017-08-03] MEDS ORDERED: PHARMACY CONSULT - DOSE _____ XX SCH (11:00)
[2017-08-03] MEDS: LEVAQUIN PREMIX IV 500 MG 500 MG/100 ML BAG IV SCH (12:02)
[2017-08-03] MEDS ORDERED: BACITRACIN ZINC ONE (15:39)
[2017-08-03] MEDS: NORCO 5/325 MG TAB PO PRN (18:23)
[2017-08-03 18:39] LABS: BILIRUBIN,URINE NEGATIVE (NEGATIVE); BLOOD/HEMOGLOBIN,URINE 4+ (NEGATIVE); GLUCOSE, URINE NEGATIVE (NEGATIVE); KETONES,URINE NEGATIVE (NEGATIVE); LEUKOCYTE ESTERASE ,URINE 3+ (NEGATIVE); NITRITES,URINE POSITIVE (NEGATIVE); PROTEIN,URINE 3+ (NEGATIVE); UROBILINOGEN,URINE NORMAL (NORMAL)
[2017-08-03 18:57] LABS: APPEARANCE,URINE SLIGHTLY HAZY (CLEAR); BACTERIA,URINE 1+ /HPF (NEGATIVE); COLOR,URINE YELLOW (YELLOW); HYALINE CASTS, URINE FEW /LPF (NEGATIVE); SQUAMOUS EPITHELIAL CELL,UR RARE /HPF (NEGATIVE); TRIPLE PHOSPHATE CRYSTAL,UR FEW /HPF (NEGATIVE)
--- NOTE | 2017-08-03 21:46 | PCM.PROG ---
Progress Note - Progress Note for Day of Date: 08/03/17 - Subjective Subjective: POD 3. Her mental status seems to be much better today. Not confused. Her pain managable. Her WBC looks higher. Her Urine does show increased wbc. Dressing changed today. Minimal drainage seen. No induration or redness seen. Was made to get out of bed and walked with help. We will DC shaw. Get urine culture. Get her more PT/OT.Discussed with family and her that it was a very bad periprosthetic fracture. We will keep a close watch on the surgical wound as well as the counts. - Past Medical Family Social History Past Med/Fam/Surg Hx: No changes since H&P Allergies: Allergies cephalexin [From Keflex] Adverse Reaction (Verified 07/28/17 19:58) morphine Adverse Reaction (Verified 07/28/17 19:58) sertraline [From Zoloft] Adverse Reaction (Verified 07/28/17 19:58) - Review of Systems ROS: No change since H&P - Vital Signs and I&O's Vital Signs: Temperature 98.0 F Pulse Rate [Left Brachial] 79 Pulse Rate 82 Respiratory Rate 18 Blood Pressure [Left Arm] 155/69 Blood Pressure [Right Arm] 127/58 Blood Pressure [Standing] 145/70 Blood Pressure [Sitting] 149/65 Blood Pressure [Lying] 171/74 Blood Pressure 128/60 O2 Sat by Pulse Oximetry 97 Intake and Output: Intake & Output 08/01/17 08/02/17 08/03/17 08/04/17 11:59 11:59 11:59 11:59 Intake Total 420 1416 1000 240 Output Total 7400 300 1425 200 Balance -6980 1116 -425 40 - Physical Exam Oriented: Normal Eyes: Normal Ear: Normal Nose: Normal Throat: Normal Respiratory: Normal Cardiovascular: Normal : Normal Auscultation: Bowel Sounds: Normal Tenderness: Normal Skin: Wound (SURGICAL WOUND TO RIGHT HIP/LEG ) Musculoskeletal: Right, Hip, Thigh, Swelling, Tender, Deformity, Instability Psychiatric: Normal Mood Description: Calm Affect: Normal Speech Pattern: Clear, Appropriate - Laboratory and Diagnostics Result Diagrams: 08/03/17 04:45 08/03/17 04:45 Labs: Laboratory WBC 16.8 X10^3/uL (3.6-10.0) H 08/03/17 04:45 RBC 3.41 X10^6/uL (3.5-5.4) L 08/03/17 04:45 Hgb 10.8 g/dL (12.0-16.0) L 08/03/17 04:45 Hct 31.7 % (36.0-47.0) L 08/03/17 04:45 MCV 93.0 fL (80.0-100.0) 08/03/17 04:45 MCH 31.8 pg (27.0-34.0) 08/03/17 04:45 MCHC 34.2 g/dL (33.0-35.0) 08/03/17 04:45 RDW 16.0 % (11.6-16.5) 08/03/17 04:45 Plt Count 231 X10^3/uL (150.0-450.0) 08/03/17 04:45 Plt Count Comment Adequate (ADEQUATE) 08/03/17 04:45 MPV 7.9 fL (7.4-11.0) 08/03/17 04:45 Neut % 86.1 % (42.0-75.0) H 08/03/17 04:45 Lymph % 5.6 % (21.0-51.0) L 08/03/17 04:45 [place] % 7.7 % (0.0-13.0) 08/03/17 04:45 Eos % 0.4 % (0.9-2.9) L 08/03/17 04:45 Baso % 0.2 % (0.2-1.0) 08/03/17 04:45 Neut # 14.5 x10^3/uL (2.2-4.8) H 08/03/17 04:45 Lymph # 0.9 X10^3/uL (1.3-2.9) L 08/03/17 04:45 [place] # 1.3 x10^3/uL (0.3-0.8) H 08/03/17 04:45 Eos # 0.1 x10^3/uL (0.0-0.2) 08/03/17 04:45 Baso # 0.0 X10^3/uL (0.0-0.1) 08/03/17 04:45 Absolute Nucleated RBC 0.1 /100WBC 08/03/17 04:45 Total Counted 100 08/03/17 04:45 Neutrophils % (Manual) 81 % (39-76) H 08/03/17 04:45 Band Neutrophils % 6 % (0-10) 08/03/17 04:45 Lymphocytes % (Manual) 4 % (13-43) L 08/03/17 04:45 Monocytes % (Manual) 8 % (4-9) 08/03/17 04:45 Eosinophils % (Manual) 1 % (0-6) 08/03/17 04:45 Plt Morphology Comment Normal (NORMAL) 08/03/17 04:45 RBC Morphology Normal (NORMAL) 08/03/17 04:45 ESR 8 MM/HOUR (0-20) 07/28/17 15:41 INR Target Range - 07/28/17 15:41 INR 1.08 (0.8-1.3) 07/28/17 15:41 PTT 25.9 SECONDS (22.9-36.5) 07/28/17 15:41 PTT Comment - 07/28/17 15:41 Sodium 134 mmol/L (136-145) L 08/03/17 04:45 Corrected Sodium 135 mmol/L (136-145) L 08/03/17 04:45 Potassium 5.3 mmol/L (3.5-5.1) H 08/03/17 04:45 Chloride 103 mmol/L (98-107) 08/03/17 04:45 Carbon Dioxide 24.7 mmol/L (21-32) 08/03/17 04:45 BUN 37 mg/dL (7-18) H 08/03/17 04:45 Creatinine 1.70 mg/dL (0.55-1.02) H 08/03/17 04:45 Est GFR (MDRD) Af Amer 37 (>60) L 08/03/17 04:45 Est GFR (MDRD) Non-Af 30 (>60) L 08/03/17 04:45 Glucose 155 mg/dL (65-99) H 08/03/17 04:45 Calcium 8.5 mg/dL (8.5-10.1) 08/03/17 04:45 Corrected Calcium 9.2 mg/dL (8.5-10.1) 08/02/17 04:55 Total Bilirubin 0.60 mg/dL (0.2-1.0) 08/02/17 04:55 AST 55 Units/L (15-37) H 08/02/17 04:55 ALT 77 Units/L (12-78) 08/02/17 04:55 Alkaline Phosphatase 69 Units/L (46-116) 08/02/17 04:55 C-Reactive Protein < 0.50 mg/L (0-3.0) 07/28/17 15:41 Total Protein 5.1 g/dL (6.4-8.2) L 08/02/17 04:55 Albumin 2.1 g/dL (3.4-5.0) L 08/02/17 04:55 Globulin 3.0 g/dL (2.5-4.5) 08/02/17 04:55 Albumin/Globulin Ratio 0.7 Ratio (1.1-2.1) L 08/02/17 04:55 Specimen Type Catherized urine 08/03/17 18:26 Urine Color Yellow (YELLOW) 08/03/17 18:26 Urine Appearance Slightly hazy (CLEAR) 08/03/17 18:26 Urine pH 8.0 (5.0 - 8.0) 08/03/17 18:26 Ur Specific [place] 1.015 (1.000-1.030) 08/03/17 18:26 Urine Protein 3+ (NEGATIVE) 08/03/17 18:26 Urine Glucose (UA) Negative (NEGATIVE) 08/03/17 18:26 Urine Ketones Negative (NEGATIVE) 08/03/17 18:26 Urine Occult Blood 4+ (NEGATIVE) 08/03/17 18:26 Urine Nitrite Positive (NEGATIVE) 08/03/17 18:26 Urine Bilirubin Negative (NEGATIVE) 08/03/17 18:26 Urine Urobilinogen Normal (NORMAL) 08/03/17 18:26 Ur Leukocyte Esterase 3+ (NEGATIVE) 08/03/17 18:26 Urine RBC 3-5 /HPF (NEGATIVE) 08/03/17 18:26 Urine WBC 10-15 /HPF (NEGATIVE) 08/03/17 18:26 Ur Squamous Epith Cells Rare /HPF (NEGATIVE) 08/03/17 18:26 Triple Phos Crystals Few /HPF (NEGATIVE) 08/03/17 18:26 Urine Bacteria 1+ /HPF (NEGATIVE) 08/03/17 18:26 Hyaline Casts Few /LPF (NEGATIVE) 08/03/17 18:26 Ur Culture Indicated? Yes/culture set up 08/03/17 18:26 Blood Type B NEGATIVE 07/28/17 18:18 Antibody Screen Negative 07/28/17 18:18 Crossmatch See Detail 07/28/17 18:18 - Plan (1) Periprosthetic fracture around internal prosthetic right hip joint Status: Acute Plan: 1. pain magement. 2. DC shaw. 3. Urine culture. 4. PT/ OT- WBAT. 5. continue vancomycin IV.
[2017-08-03] MEDS: ANTIVERT TAB 25 MG PO SCH (21:56)
[2017-08-03] MEDS: CATAPRES TAB 0.1 MG PO SCH (21:57)
[2017-08-03] MEDS: D5W 1000 ML IV 1,000 ML IV SCH (22:08)
--- NOTE | 2017-08-03 23:44 | PCM.PROG ---
Progress Note - Progress Note for Day of Date: 08/02/17 - Subjective Subjective: IS ALERT AND ORIENTED, LYING IN BED ON MORNING ROUNDS. SHE IS STATUS POST ORIF OF THE RIGHT FEMUR. SHE IS NOTED WITH CONTINUED PAIN TO THE RIGHT HIP/LEG. DRESSING NOTED TO RIGHT HIP/LEG DRY AND INTACT WITH NO SIGNS OF INFECTION NOTED TO AREA SURROUNDING DRESSING. VITALS THIS AM ARE 98.4-80-20- 94%-133/60. LABS WERE OBTAINED. ABNORMAL LAB VALUES INCLUDE CBC RBC 2.89, HGB 9.32, HCT 26.5, SODIUM 131, BUN 47, CREATININE 1.90, GLUCOSE 112, CALCIUM 7.7, AST 55, TOTAL PROTEIN 5.1, ALBUMIN 2.1. PATIENT WILL RECEIVE PHYSICAL THERAPY AND OCCUPATIONAL THERAPY. SHE WAS STARTED ON VANCOMYCIN 1GM IV DAILY FOR AN INCREASED WBC. IT IS NORMAL TODAY. WE WILL CONTINUE WITH CURRENT PLAN OF CARE AND RECHECK AM LABS AND CONTINUE FOLLOW UP WITH PATIENT. - Past Medical Family Social History Past Med/Fam/Surg Hx: No changes since H&P Allergies: Allergies cephalexin [From Keflex] Adverse Reaction (Verified 07/28/17 19:58) morphine Adverse Reaction (Verified 07/28/17 19:58) sertraline [From Zoloft] Adverse Reaction (Verified 07/28/17 19:58) - Review of Systems ROS: No change since H&P - Vital Signs and I&O's Vital Signs: Temperature 98.5 F Pulse Rate [Left Brachial] 82 Pulse Rate 82 Respiratory Rate 20 Blood Pressure [Left Arm] 156/70 Blood Pressure [Right Arm] 127/58 Blood Pressure [Standing] 145/70 Blood Pressure [Sitting] 149/65 Blood Pressure [Lying] 171/74 Blood Pressure 128/60 O2 Sat by Pulse Oximetry 99 Intake and Output: Intake & Output 08/01/17 08/02/17 08/03/17 08/04/17 11:59 11:59 11:59 11:59 Intake Total 420 1416 1000 240 Output Total 7400 300 1425 200 Balance -6980 1116 -425 40 - Physical Exam Oriented: Normal Eyes: Normal Ear: Normal Nose: Normal Throat: Normal Respiratory: Normal Cardiovascular: Normal : Normal Auscultation: Bowel Sounds: Normal Palpation: Normal Tenderness: Normal Skin: Wound (SURGICAL WOUND TO RIGHT HIP/LEG ) Musculoskeletal: Right, Hip, Thigh, Swelling, Tender, Deformity, Instability Psychiatric: Normal Mood Description: Calm Affect: Normal Speech Pattern: Clear, Appropriate - Laboratory and Diagnostics Result Diagrams: 08/03/17 04:45 08/03/17 04:45 Labs: Laboratory WBC 16.8 X10^3/uL (3.6-10.0) H 08/03/17 04:45 RBC 3.41 X10^6/uL (3.5-5.4) L 08/03/17 04:45 Hgb 10.8 g/dL (12.0-16.0) L 08/03/17 04:45 Hct 31.7 % (36.0-47.0) L 08/03/17 04:45 MCV 93.0 fL (80.0-100.0) 08/03/17 04:45 MCH 31.8 pg (27.0-34.0) 08/03/17 04:45 MCHC 34.2 g/dL (33.0-35.0) 08/03/17 04:45 RDW 16.0 % (11.6-16.5) 08/03/17 04:45 Plt Count 231 X10^3/uL (150.0-450.0) 08/03/17 04:45 Plt Count Comment Adequate (ADEQUATE) 08/03/17 04:45 MPV 7.9 fL (7.4-11.0) 08/03/17 04:45 Neut % 86.1 % (42.0-75.0) H 08/03/17 04:45 Lymph % 5.6 % (21.0-51.0) L 08/03/17 04:45 [place] % 7.7 % (0.0-13.0) 08/03/17 04:45 Eos % 0.4 % (0.9-2.9) L 08/03/17 04:45 Baso % 0.2 % (0.2-1.0) 08/03/17 04:45 Neut # 14.5 x10^3/uL (2.2-4.8) H 08/03/17 04:45 Lymph # 0.9 X10^3/uL (1.3-2.9) L 08/03/17 04:45 [place] # 1.3 x10^3/uL (0.3-0.8) H 08/03/17 04:45 Eos # 0.1 x10^3/uL (0.0-0.2) 08/03/17 04:45 Baso # 0.0 X10^3/uL (0.0-0.1) 08/03/17 04:45 Absolute Nucleated RBC 0.1 /100WBC 08/03/17 04:45 Total Counted 100 08/03/17 04:45 Neutrophils % (Manual) 81 % (39-76) H 08/03/17 04:45 Band Neutrophils % 6 % (0-10) 08/03/17 04:45 Lymphocytes % (Manual) 4 % (13-43) L 08/03/17 04:45 Monocytes % (Manual) 8 % (4-9) 08/03/17 04:45 Eosinophils % (Manual) 1 % (0-6) 08/03/17 04:45 Plt Morphology Comment Normal (NORMAL) 08/03/17 04:45 RBC Morphology Normal (NORMAL) 08/03/17 04:45 ESR 8 MM/HOUR (0-20) 07/28/17 15:41 INR Target Range - 07/28/17 15:41 INR 1.08 (0.8-1.3) 07/28/17 15:41 PTT 25.9 SECONDS (22.9-36.5) 07/28/17 15:41 PTT Comment - 07/28/17 15:41 Sodium 134 mmol/L (136-145) L 08/03/17 04:45 Corrected Sodium 135 mmol/L (136-145) L 08/03/17 04:45 Potassium 5.3 mmol/L (3.5-5.1) H 08/03/17 04:45 Chloride 103 mmol/L (98-107) 08/03/17 04:45 Carbon Dioxide 24.7 mmol/L (21-32) 08/03/17 04:45 BUN 37 mg/dL (7-18) H 08/03/17 04:45 Creatinine 1.70 mg/dL (0.55-1.02) H 08/03/17 04:45 Est GFR (MDRD) Af Amer 37 (>60) L 08/03/17 04:45 Est GFR (MDRD) Non-Af 30 (>60) L 08/03/17 04:45 Glucose 155 mg/dL (65-99) H 08/03/17 04:45 Calcium 8.5 mg/dL (8.5-10.1) 08/03/17 04:45 Corrected Calcium 9.2 mg/dL (8.5-10.1) 08/02/17 04:55 Total Bilirubin 0.60 mg/dL (0.2-1.0) 08/02/17 04:55 AST 55 Units/L (15-37) H 08/02/17 04:55 ALT 77 Units/L (12-78) 08/02/17 04:55 Alkaline Phosphatase 69 Units/L (46-116) 08/02/17 04:55 C-Reactive Protein < 0.50 mg/L (0-3.0) 07/28/17 15:41 Total Protein 5.1 g/dL (6.4-8.2) L 08/02/17 04:55 Albumin 2.1 g/dL (3.4-5.0) L 08/02/17 04:55 Globulin 3.0 g/dL (2.5-4.5) 08/02/17 04:55 Albumin/Globulin Ratio 0.7 Ratio (1.1-2.1) L 08/02/17 04:55 Specimen Type Catherized urine 08/03/17 18:26 Urine Color Yellow (YELLOW) 08/03/17 18:26 Urine Appearance Slightly hazy (CLEAR) 08/03/17 18:26 Urine pH 8.0 (5.0 - 8.0) 08/03/17 18:26 Ur Specific [place] 1.015 (1.000-1.030) 08/03/17 18:26 Urine Protein 3+ (NEGATIVE) 08/03/17 18:26 Urine Glucose (UA) Negative (NEGATIVE) 08/03/17 18:26 Urine Ketones Negative (NEGATIVE) 08/03/17 18:26 Urine Occult Blood 4+ (NEGATIVE) 08/03/17 18:26 Urine Nitrite Positive (NEGATIVE) 08/03/17 18:26 Urine Bilirubin Negative (NEGATIVE) 08/03/17 18:26 Urine Urobilinogen Normal (NORMAL) 08/03/17 18:26 Ur Leukocyte Esterase 3+ (NEGATIVE) 08/03/17 18:26 Urine RBC 3-5 /HPF (NEGATIVE) 08/03/17 18:26 Urine WBC 10-15 /HPF (NEGATIVE) 08/03/17 18:26 Ur Squamous Epith Cells Rare /HPF (NEGATIVE) 08/03/17 18:26 Triple Phos Crystals Few /HPF (NEGATIVE) 08/03/17 18:26 Urine Bacteria 1+ /HPF (NEGATIVE) 08/03/17 18:26 Hyaline Casts Few /LPF (NEGATIVE) 08/03/17 18:26 Ur Culture Indicated? Yes/culture set up 08/03/17 18:26 Blood Type B NEGATIVE 07/28/17 18:18 Antibody Screen Negative 07/28/17 18:18 Crossmatch See Detail 07/28/17 18:18 - Plan (1) Right femoral fracture Status: Acute Qualifiers: Encounter type: initial encounter Femur location: intertrochanteric Fracture type: closed Fracture alignment: displaced Qualified Code(s): S72.141A - Displaced intertrochanteric fracture of right femur, initial encounter for closed fracture Plan: OPEN REDUCTION INTERNAL FIXATION, DILAUDID 2MG Q1H PRN PAIN, TORADOL 30MG IV Q2H PRN PAIN, CONTINUE TO MONITOR (2) Depression Status: Chronic Qualifiers: Depression Type: major depressive disorder Major depression recurrence: recurrent Active/Remission status: currently active Major depression episode severity: moderate Qualified Code(s): F33.1 - Major depressive disorder, recurrent, moderate Plan: CONTINUE CELEXA 40MG PO DAILY, CONTINUE TO MONITOR (3) GERD (gastroesophageal reflux disease) Status: Chronic Qualifiers: Esophagitis presence: esophagitis presence not specified Qualified Code(s) : K21.9 - Gastro-esophageal reflux disease without esophagitis Plan: CONTINUE PEPCID 20MG DAILY, CONTINUE TO MONITOR (4) Hypertension Status: Chronic Qualifiers: Hypertension type: essential hypertension Qualified Code(s): I10 - Essential (primary) hypertension Plan: CONTINUE COREG 6.25MG BID, CONTINUE CATAPRES 0.1MG PO HS, CONTINUE LISINOPRIL 20MG PO DAILY, CONTINUE TO MONITOR (5) Vertigo Status: Chronic Plan: CONTINUE MECLIZINE 25MG PO HS, CONTINUE TO MONITOR
[2017-08-04 05:49] LABS: ALBUMIN 2.5 g/dL (3.4-5.0); CALCIUM 8.5 mg/dL (8.5-10.1); CARBON DIOXIDE 26.1 mmol/L (21-32); COR CA(FOR HYPOALB) 9.7 mg/dL (8.5-10.1); CREATININE 1.63 mg/dL (0.55-1.02); TOTAL PROTEIN 5.9 g/dL (6.4-8.2)
[2017-08-04 06:15] LABS: BASOPHILS % (AUTO) 0.3 % (0.2-1.0); EOSINOPHILS # (AUTO) 0.2 x10^3/uL (0.0-0.2); EOSINOPHILS % (AUTO) 2.1 % (0.9-2.9); HEMATOCRIT 26.7 % (36.0-47.0); HEMOGLOBIN 9.4 g/dL (12.0-16.0); LYMPHOCYTES % (AUTO) 9.5 % (21.0-51.0); MEAN CORPUSCULAR HEMOGLOBIN 32.6 pg (27.0-34.0); MEAN CORPUSCULAR HGB CONC 35.1 g/dL (33.0-35.0); MEAN CORPUSCULAR VOLUME 92.7 fL (80.0-100.0); MEAN PLATELET VOLUME 7.8 fL (7.4-11.0); MONOCYTES % (AUTO) 8.8 % (0.0-13.0); NEUTROPHILS # (AUTO) 8.7 x10^3/uL (2.2-4.8); NEUTROPHILS % (AUTO) 79.3 % (42.0-75.0); PLATELET COUNT 191 X10^3/uL (150.0-450.0); RED BLOOD COUNT 2.88 X10^6/uL (3.5-5.4); RED CELL DISTRIBUTION WIDTH 16.4 % (11.6-16.5)
[2017-08-04 06:46] LABS: BAND NEUTROPHILS % 2 % (0-10); PLATELET MORPHOLOGY COMMENT NORMAL (NORMAL)
[2017-08-04] MEDS ORDERED: ZESTRIL TAB 20 MG ONE (09:56)
[2017-08-04] MEDS: CELEXA PO SCH (10:09)
[2017-08-04] MEDS: COREG TAB 6.25 MG PO SCH ×2 (10:09→20:18)
[2017-08-04] MEDS: PEPCID TAB 20 MG PO SCH (10:10)
[2017-08-04] MEDS: ALBUMIN HUMAN 25%- 100ML 100 ML IV SCH (10:10)
[2017-08-04] MEDS: ZESTRIL TAB 20 MG PO SCH (10:10)
[2017-08-04] MEDS: CLEOCIN PO SCH (10:10)
[2017-08-04] MEDS: TORADOL 30 MG VIAL IVP SCH ×2 (10:11→20:24)
[2017-08-04] MEDS: LOVENOX INJ 40 MG SYR SC SCH (10:12)
[2017-08-04] MEDS: NORCO 5/325 MG TAB PO PRN (14:31)
[2017-08-04] MEDS: DILAUDID INJ IVP PRN ×2 (16:12→23:38)
--- NOTE | 2017-08-04 17:19 | PCM.PROG ---
Progress Note - Progress Note for Day of Date: 08/04/17 - Subjective Subjective: is doin okay today. Her pain is well contolled. she is gettting out o bd and waking with PT. her urine culture seems to be growing gram neg rods. we will RUBA Shaw. dressing change tomorrow. start he back on IV Vanco 1 gm q 12 for another days prophylactically. - Past Medical Family Social History Past Med/Fam/Surg Hx: No changes since H&P Allergies: Allergies cephalexin [From Keflex] Adverse Reaction (Verified 07/28/17 19:58) morphine Adverse Reaction (Verified 07/28/17 19:58) sertraline [From Zoloft] Adverse Reaction (Verified 07/28/17 19:58) - Review of Systems ROS: No change since H&P - Vital Signs and I&O's Vital Signs: Temperature 98.5 F Pulse Rate [Right Brachial] 78 Pulse Rate [Left Brachial] 70 Pulse Rate 90 Respiratory Rate 18 Blood Pressure [Left Arm] 122/59 Blood Pressure [Right Arm] 127/59 Blood Pressure [Standing] 145/70 Blood Pressure [Sitting] 149/65 Blood Pressure [Lying] 171/74 Blood Pressure 128/60 O2 Sat by Pulse Oximetry 99 Intake and Output: Intake & Output 08/02/17 08/03/17 08/04/17 08/05/17 11:59 11:59 11:59 11:59 Intake Total 1416 1000 860 740 Output Total 300 1425 950 350 Balance 1116 -425 -90 390 - Physical Exam Oriented: Normal Eyes: Normal Ear: Normal Nose: Normal Throat: Normal Respiratory: Normal Cardiovascular: Normal : Normal Auscultation: Bowel Sounds: Normal Tenderness: Normal Skin: Wound (SURGICAL WOUND TO RIGHT HIP/LEG ) Musculoskeletal: Right, Hip, Thigh, Swelling, Tender, Deformity, Instability Psychiatric: Normal Mood Description: Calm Affect: Normal Speech Pattern: Clear, Appropriate - Laboratory and Diagnostics Result Diagrams: 08/04/17 04:45 08/04/17 04:45 Labs: 08/03/17 18:26 Urine,Catheterized Urine Culture - Preliminary Laboratory WBC 11.0 X10^3/uL (3.6-10.0) H 08/04/17 04:45 RBC 2.88 X10^6/uL (3.5-5.4) L 08/04/17 04:45 Hgb 9.4 g/dL (12.0-16.0) L 08/04/17 04:45 Hct 26.7 % (36.0-47.0) L 08/04/17 04:45 MCV 92.7 fL (80.0-100.0) 08/04/17 04:45 MCH 32.6 pg (27.0-34.0) 08/04/17 04:45 MCHC 35.1 g/dL (33.0-35.0) H 08/04/17 04:45 RDW 16.4 % (11.6-16.5) 08/04/17 04:45 Plt Count 191 X10^3/uL (150.0-450.0) 08/04/17 04:45 Plt Count Comment Adequate (ADEQUATE) 08/04/17 04:45 MPV 7.8 fL (7.4-11.0) 08/04/17 04:45 Neut % 79.3 % (42.0-75.0) H 08/04/17 04:45 Lymph % 9.5 % (21.0-51.0) L 08/04/17 04:45 [place] % 8.8 % (0.0-13.0) 08/04/17 04:45 Eos % 2.1 % (0.9-2.9) 08/04/17 04:45 Baso % 0.3 % (0.2-1.0) 08/04/17 04:45 Neut # 8.7 x10^3/uL (2.2-4.8) H 08/04/17 04:45 Lymph # 1.0 X10^3/uL (1.3-2.9) L 08/04/17 04:45 [place] # 1.0 x10^3/uL (0.3-0.8) H 08/04/17 04:45 Eos # 0.2 x10^3/uL (0.0-0.2) 08/04/17 04:45 Baso # 0.0 X10^3/uL (0.0-0.1) 08/04/17 04:45 Absolute Nucleated RBC 0.0 /100WBC 08/04/17 04:45 Total Counted 100 08/04/17 04:45 Neutrophils % (Manual) 72 % (39-76) 08/04/17 04:45 Band Neutrophils % 2 % (0-10) 08/04/17 04:45 Lymphocytes % (Manual) 16 % (13-43) 08/04/17 04:45 Monocytes % (Manual) 7 % (4-9) 08/04/17 04:45 Eosinophils % (Manual) 3 % (0-6) 08/04/17 04:45 Plt Morphology Comment Normal (NORMAL) 08/04/17 04:45 RBC Morphology Normal (NORMAL) 08/04/17 04:45 ESR 8 MM/HOUR (0-20) 07/28/17 15:41 INR Target Range - 07/28/17 15:41 INR 1.08 (0.8-1.3) 07/28/17 15:41 PTT 25.9 SECONDS (22.9-36.5) 07/28/17 15:41 PTT Comment - 07/28/17 15:41 Sodium 137 mmol/L (136-145) 08/04/17 04:45 Corrected Sodium 137 mmol/L (136-145) 08/04/17 04:45 Potassium 4.8 mmol/L (3.5-5.1) 08/04/17 04:45 Chloride 105 mmol/L (98-107) 08/04/17 04:45 Carbon Dioxide 26.1 mmol/L (21-32) 08/04/17 04:45 BUN 34 mg/dL (7-18) H 08/04/17 04:45 Creatinine 1.63 mg/dL (0.55-1.02) H 08/04/17 04:45 Est GFR (MDRD) Af Amer 39 (>60) L 08/04/17 04:45 Est GFR (MDRD) Non-Af 32 (>60) L 08/04/17 04:45 Glucose 116 mg/dL (65-99) H 08/04/17 04:45 Calcium 8.5 mg/dL (8.5-10.1) 08/04/17 04:45 Corrected Calcium 9.7 mg/dL (8.5-10.1) 08/04/17 04:45 Total Bilirubin 0.60 mg/dL (0.2-1.0) 08/04/17 04:45 AST 33 Units/L (15-37) 08/04/17 04:45 ALT 53 Units/L (12-78) 08/04/17 04:45 Alkaline Phosphatase 66 Units/L (46-116) 08/04/17 04:45 C-Reactive Protein < 0.50 mg/L (0-3.0) 07/28/17 15:41 Total Protein 5.9 g/dL (6.4-8.2) L 08/04/17 04:45 Albumin 2.5 g/dL (3.4-5.0) L 08/04/17 04:45 Globulin 3.4 g/dL (2.5-4.5) 08/04/17 04:45 Albumin/Globulin Ratio 0.7 Ratio (1.1-2.1) L 08/04/17 04:45 Specimen Type Catherized urine 08/03/17 18:26 Urine Color Yellow (YELLOW) 08/03/17 18:26 Urine Appearance Slightly hazy (CLEAR) 08/03/17 18:26 Urine pH 8.0 (5.0 - 8.0) 08/03/17 18:26 Ur Specific [place] 1.015 (1.000-1.030) 08/03/17 18:26 Urine Protein 3+ (NEGATIVE) 08/03/17 18:26 Urine Glucose (UA) Negative (NEGATIVE) 08/03/17 18:26 Urine Ketones Negative (NEGATIVE) 08/03/17 18:26 Urine Occult Blood 4+ (NEGATIVE) 08/03/17 18:26 Urine Nitrite Positive (NEGATIVE) 08/03/17 18:26 Urine Bilirubin Negative (NEGATIVE) 08/03/17 18:26 Urine Urobilinogen Normal (NORMAL) 08/03/17 18:26 Ur Leukocyte Esterase 3+ (NEGATIVE) 08/03/17 18:26 Urine RBC 3-5 /HPF (NEGATIVE) 08/03/17 18:26 Urine WBC 10-15 /HPF (NEGATIVE) 08/03/17 18:26 Ur Squamous Epith Cells Rare /HPF (NEGATIVE) 08/03/17 18:26 Triple Phos Crystals Few /HPF (NEGATIVE) 08/03/17 18:26 Urine Bacteria 1+ /HPF (NEGATIVE) 08/03/17 18:26 Hyaline Casts Few /LPF (NEGATIVE) 08/03/17 18:26 Ur Culture Indicated? Yes/culture set up 08/03/17 18:26 Blood Type B NEGATIVE 07/28/17 18:18 Antibody Screen Negative 07/28/17 18:18 Crossmatch See Detail 07/28/17 18:18 - Plan (1) Periprosthetic fracture around internal prosthetic right hip joint Status: Acute Plan: 1. pain magement. 2. DC shaw. 3. Urine culture. 4. PT/ OT- WBAT. 5. continue vancomycin IV.
[2017-08-04] MEDS ORDERED: MAALOX or MYLANTA PO PRN (19:56)
[2017-08-04] MEDS: VANCOMYCIN 1 GM PREMIX (ADDVANTAGE) 250 ML IV SCH (20:17)
[2017-08-04] MEDS: ANTIVERT TAB 25 MG PO SCH (20:18)
[2017-08-04] MEDS: CATAPRES TAB 0.1 MG PO SCH (20:18)
[2017-08-04] MEDS: D5W 1000 ML IV 1,000 ML IV SCH (20:19)
[2017-08-04] MEDS ORDERED: VANCOMYCIN HCL 1 GM VIAL IV SCH (21:00)
[2017-08-04] MEDS: PHARMACY CONSULT - VANCOMYCIN XX SCH (21:46)
--- NOTE | 2017-08-04 23:38 | PCM.PROG ---
Progress Note - Progress Note for Day of Date: 08/03/17 - Subjective Subjective: IS STATUS POST ORIF OF THE RIGHT FEMUR. SHE IS ALERT AND ORIENTED, LYING IN BED ON MORNING ROUNDS. PATIENTS DAUGHTER IS AT BEDSIDE. PATIENT IS NOTED WITH COMPLAINTS OF RIGHT HIP PAIN. STAFF REPORTS THAT PATIENT HAS BEEN UP TO BEDSIDE COMMODE AND HAS SAT IN THE RECLINER. DRESSING NTOED TO THE RIGHT HIP/LEG. DRESSING IS DRY AND INTACT WITH NO SIGNS/SX INFECTION NOTED. VITAL SIGNS THIS MORNING WERE 99.1-84-18-97%-148/67. CBC, CMP WERE OBTAINED. ABNORMAL LAB VALUES INCLUDE THE FOLLOWING: WBC 16.8, RBC 3.41, HGB 10.8, HCT 31.7, SODIUM 134, POTASSIUM 5.3, BUN 37, CREATININE 1.70, GLUCOSE 155. WE OBTAINED A URINE SAMPLE TO DETERMINE SOURCE OF INCREASE WBC. URINALYSIS REPORTED WBC 10-15, RBC 3-5, BACTERIA 1+, LEUKOCYTES 3+, PROTEIN 3+, NITRATES POSITIVE. FOLLOWED UP WITH PATIENT TODAY WITH NO NEW ORDERS NOTED. WE WILL START PATIENT ON LEVAQUIN 500MG IV Q48H FOR UTI. WE WILL CHANGE TORADOL TO 30MG IV Q12H [place]. WE DISCUSSED PLACEMENT AT [facility] WITH PATIENT FOR PHYSICAL THERAPY. PATIENT IS IN AGREEMENT WITH PLANS. WE WILL DISCUSS WITH CASE MANAGEMENT AND WHEN THEY RETURN. OTHERWISE, WE WILL CONTINUE WITH CURRENT PLAN OF CARE. WE PLAN TO RECHECK CBC AND CMP AND FOLLOW UP WITH PATIENT IN THE AM. - Past Medical Family Social History Past Med/Fam/Surg Hx: No changes since H&P Allergies: Allergies cephalexin [From Keflex] Adverse Reaction (Verified 07/28/17 19:58) morphine Adverse Reaction (Verified 07/28/17 19:58) sertraline [From Zoloft] Adverse Reaction (Verified 07/28/17 19:58) - Review of Systems ROS: No change since H&P - Vital Signs and I&O's Vital Signs: Temperature 98.5 F Pulse Rate [Right Brachial] 81 Pulse Rate [Left Brachial] 70 Pulse Rate 90 Respiratory Rate 18 Blood Pressure [Left Arm] 122/59 Blood Pressure [Right Arm] 163/68 Blood Pressure [Standing] 145/70 Blood Pressure [Sitting] 149/65 Blood Pressure [Lying] 171/74 Blood Pressure 128/60 O2 Sat by Pulse Oximetry 98 Intake and Output: Intake & Output 08/02/17 08/03/17 08/04/17 08/05/17 11:59 11:59 11:59 11:59 Intake Total 1416 1000 860 980 Output Total 300 1425 950 550 Balance 1116 -425 -90 430 - Physical Exam Oriented: Normal Eyes: Normal Ear: Normal Nose: Normal Throat: Normal Respiratory: Normal Cardiovascular: Normal : Normal Auscultation: Bowel Sounds: Normal Palpation: Normal Tenderness: Normal Skin: Wound (SURGICAL WOUND TO RIGHT HIP/LEG ) Musculoskeletal: Right, Hip, Thigh, Swelling, Tender, Deformity, Instability Psychiatric: Normal Mood Description: Calm Affect: Normal Speech Pattern: Clear, Appropriate - Laboratory and Diagnostics Result Diagrams: 08/04/17 04:45 08/04/17 04:45 Labs: 08/03/17 18:26 Urine,Catheterized Urine Culture - Preliminary Laboratory WBC 11.0 X10^3/uL (3.6-10.0) H 08/04/17 04:45 RBC 2.88 X10^6/uL (3.5-5.4) L 08/04/17 04:45 Hgb 9.4 g/dL (12.0-16.0) L 08/04/17 04:45 Hct 26.7 % (36.0-47.0) L 08/04/17 04:45 MCV 92.7 fL (80.0-100.0) 08/04/17 04:45 MCH 32.6 pg (27.0-34.0) 08/04/17 04:45 MCHC 35.1 g/dL (33.0-35.0) H 08/04/17 04:45 RDW 16.4 % (11.6-16.5) 08/04/17 04:45 Plt Count 191 X10^3/uL (150.0-450.0) 08/04/17 04:45 Plt Count Comment Adequate (ADEQUATE) 08/04/17 04:45 MPV 7.8 fL (7.4-11.0) 08/04/17 04:45 Neut % 79.3 % (42.0-75.0) H 08/04/17 04:45 Lymph % 9.5 % (21.0-51.0) L 08/04/17 04:45 [place] % 8.8 % (0.0-13.0) 08/04/17 04:45 Eos % 2.1 % (0.9-2.9) 08/04/17 04:45 Baso % 0.3 % (0.2-1.0) 08/04/17 04:45 Neut # 8.7 x10^3/uL (2.2-4.8) H 08/04/17 04:45 Lymph # 1.0 X10^3/uL (1.3-2.9) L 08/04/17 04:45 [place] # 1.0 x10^3/uL (0.3-0.8) H 08/04/17 04:45 Eos # 0.2 x10^3/uL (0.0-0.2) 08/04/17 04:45 Baso # 0.0 X10^3/uL (0.0-0.1) 08/04/17 04:45 Absolute Nucleated RBC 0.0 /100WBC 08/04/17 04:45 Total Counted 100 08/04/17 04:45 Neutrophils % (Manual) 72 % (39-76) 08/04/17 04:45 Band Neutrophils % 2 % (0-10) 08/04/17 04:45 Lymphocytes % (Manual) 16 % (13-43) 08/04/17 04:45 Monocytes % (Manual) 7 % (4-9) 08/04/17 04:45 Eosinophils % (Manual) 3 % (0-6) 08/04/17 04:45 Plt Morphology Comment Normal (NORMAL) 08/04/17 04:45 RBC Morphology Normal (NORMAL) 08/04/17 04:45 ESR 8 MM/HOUR (0-20) 07/28/17 15:41 INR Target Range - 07/28/17 15:41 INR 1.08 (0.8-1.3) 07/28/17 15:41 PTT 25.9 SECONDS (22.9-36.5) 07/28/17 15:41 PTT Comment - 07/28/17 15:41 Sodium 137 mmol/L (136-145) 08/04/17 04:45 Corrected Sodium 137 mmol/L (136-145) 08/04/17 04:45 Potassium 4.8 mmol/L (3.5-5.1) 08/04/17 04:45 Chloride 105 mmol/L (98-107) 08/04/17 04:45 Carbon Dioxide 26.1 mmol/L (21-32) 08/04/17 04:45 BUN 34 mg/dL (7-18) H 08/04/17 04:45 Creatinine 1.63 mg/dL (0.55-1.02) H 08/04/17 04:45 Est GFR (MDRD) Af Amer 39 (>60) L 08/04/17 04:45 Est GFR (MDRD) Non-Af 32 (>60) L 08/04/17 04:45 Glucose 116 mg/dL (65-99) H 08/04/17 04:45 Calcium 8.5 mg/dL (8.5-10.1) 08/04/17 04:45 Corrected Calcium 9.7 mg/dL (8.5-10.1) 08/04/17 04:45 Total Bilirubin 0.60 mg/dL (0.2-1.0) 08/04/17 04:45 AST 33 Units/L (15-37) 08/04/17 04:45 ALT 53 Units/L (12-78) 08/04/17 04:45 Alkaline Phosphatase 66 Units/L (46-116) 08/04/17 04:45 C-Reactive Protein < 0.50 mg/L (0-3.0) 07/28/17 15:41 Total Protein 5.9 g/dL (6.4-8.2) L 08/04/17 04:45 Albumin 2.5 g/dL (3.4-5.0) L 08/04/17 04:45 Globulin 3.4 g/dL (2.5-4.5) 08/04/17 04:45 Albumin/Globulin Ratio 0.7 Ratio (1.1-2.1) L 08/04/17 04:45 Specimen Type Catherized urine 08/03/17 18:26 Urine Color Yellow (YELLOW) 08/03/17 18:26 Urine Appearance Slightly hazy (CLEAR) 08/03/17 18:26 Urine pH 8.0 (5.0 - 8.0) 08/03/17 18:26 Ur Specific [place] 1.015 (1.000-1.030) 08/03/17 18:26 Urine Protein 3+ (NEGATIVE) 08/03/17 18:26 Urine Glucose (UA) Negative (NEGATIVE) 08/03/17 18:26 Urine Ketones Negative (NEGATIVE) 08/03/17 18:26 Urine Occult Blood 4+ (NEGATIVE) 08/03/17 18:26 Urine Nitrite Positive (NEGATIVE) 08/03/17 18:26 Urine Bilirubin Negative (NEGATIVE) 08/03/17 18:26 Urine Urobilinogen Normal (NORMAL) 08/03/17 18:26 Ur Leukocyte Esterase 3+ (NEGATIVE) 08/03/17 18:26 Urine RBC 3-5 /HPF (NEGATIVE) 08/03/17 18:26 Urine WBC 10-15 /HPF (NEGATIVE) 08/03/17 18:26 Ur Squamous Epith Cells Rare /HPF (NEGATIVE) 08/03/17 18:26 Triple Phos Crystals Few /HPF (NEGATIVE) 08/03/17 18:26 Urine Bacteria 1+ /HPF (NEGATIVE) 08/03/17 18:26 Hyaline Casts Few /LPF (NEGATIVE) 08/03/17 18:26 Ur Culture Indicated? Yes/culture set up 08/03/17 18:26 Blood Type B NEGATIVE 07/28/17 18:18 Antibody Screen Negative 07/28/17 18:18 Crossmatch See Detail 07/28/17 18:18 - Plan (1) Right femoral fracture Status: Acute Qualifiers: Encounter type: initial encounter Femur location: intertrochanteric Fracture type: closed Fracture alignment: displaced Qualified Code(s): S72.141A - Displaced intertrochanteric fracture of right femur, initial encounter for closed fracture Plan: OPEN REDUCTION INTERNAL FIXATION, DILAUDID 2MG Q1H PRN PAIN, TORADOL 30MG IV Q2H PRN PAIN, CONTINUE TO MONITOR (2) Depression Status: Chronic Qualifiers: Depression Type: major depressive disorder Major depression recurrence: recurrent Active/Remission status: currently active Major depression episode severity: moderate Qualified Code(s): F33.1 - Major depressive disorder, recurrent, moderate Plan: CONTINUE CELEXA 40MG PO DAILY, CONTINUE TO MONITOR (3) GERD (gastroesophageal reflux disease) Status: Chronic Qualifiers: Esophagitis presence: esophagitis presence not specified Qualified Code(s) : K21.9 - Gastro-esophageal reflux disease without esophagitis Plan: CONTINUE PEPCID 20MG DAILY, CONTINUE TO MONITOR (4) Hypertension Status: Chronic Qualifiers: Hypertension type: essential hypertension Qualified Code(s): I10 - Essential (primary) hypertension Plan: CONTINUE COREG 6.25MG BID, CONTINUE CATAPRES 0.1MG PO HS, CONTINUE LISINOPRIL 20MG PO DAILY, CONTINUE TO MONITOR (5) Vertigo Status: Chronic Plan: CONTINUE MECLIZINE 25MG PO HS, CONTINUE TO MONITOR (6) Urinary tract infection Status: Acute Qualifiers: Urinary tract infection type: acute cystitis Hematuria presence: with hematuria Qualified Code(s): N30.01 - Acute cystitis with hematuria Plan: LEVAQUIN 500MG IV DAILY
[2017-08-05 06:04] LABS: ALBUMIN 2.8 g/dL (3.4-5.0); CALCIUM 8.5 mg/dL (8.5-10.1); COR CA(FOR HYPOALB) 9.5 mg/dL (8.5-10.1); CREATININE 1.47 mg/dL (0.55-1.02)
[2017-08-05 06:08] LABS: BASOPHILS # (AUTO) 0.1 X10^3/uL (0.0-0.1); BASOPHILS % (AUTO) 0.6 % (0.2-1.0); EOSINOPHILS # (AUTO) 0.4 x10^3/uL (0.0-0.2); EOSINOPHILS % (AUTO) 3.5 % (0.9-2.9); HEMATOCRIT 27.4 % (36.0-47.0); HEMOGLOBIN 9.4 g/dL (12.0-16.0); LYMPHOCYTES # (AUTO) 1.2 X10^3/uL (1.3-2.9); LYMPHOCYTES % (AUTO) 11.3 % (21.0-51.0); MEAN CORPUSCULAR HGB CONC 34.5 g/dL (33.0-35.0); MEAN CORPUSCULAR VOLUME 92.9 fL (80.0-100.0); MEAN PLATELET VOLUME 7.7 fL (7.4-11.0); MONOCYTES % (AUTO) 9.6 % (0.0-13.0); NEUTROPHILS # (AUTO) 7.7 x10^3/uL (2.2-4.8); PLATELET COUNT 243 X10^3/uL (150.0-450.0); RED BLOOD COUNT 2.95 X10^6/uL (3.5-5.4); RED CELL DISTRIBUTION WIDTH 16.3 % (11.6-16.5); WHITE BLOOD COUNT 10.3 X10^3/uL (3.6-10.0)
[2017-08-05 06:53] LABS: BAND NEUTROPHILS % 10 % (0-10); PLATELET MORPHOLOGY COMMENT NORMAL (NORMAL)
[2017-08-05] MEDS: D5W 1000 ML IV 1,000 ML IV SCH ×2 (07:00→20:54)
[2017-08-05] MEDS ORDERED: ZESTRIL TAB 20 MG ONE (10:19)
[2017-08-05] MEDS: LOVENOX INJ 40 MG SYR SC SCH (10:28)
[2017-08-05] MEDS: COREG TAB 6.25 MG PO SCH ×2 (10:30→20:52)
[2017-08-05] MEDS: PEPCID TAB 20 MG PO SCH (10:30)
[2017-08-05] MEDS: ZESTRIL TAB 20 MG PO SCH (10:30)
[2017-08-05] MEDS: TORADOL 30 MG VIAL IVP SCH ×2 (10:30→20:51)
[2017-08-05] MEDS: LEVAQUIN PREMIX IV 500 MG 500 MG/100 ML BAG IV SCH (10:31)
[2017-08-05] MEDS: ALBUMIN HUMAN 25%- 100ML 100 ML IV SCH (10:31)
[2017-08-05] MEDS: CELEXA PO SCH (10:31)
[2017-08-05] MEDS ORDERED: BACITRACIN ZINC TOP PRN (10:54)
[2017-08-05] MEDS: NORCO 5/325 MG TAB PO PRN (12:37)
--- NOTE | 2017-08-05 12:57 | PCM.PROG ---
Progress Note - Progress Note for Day of Date: 08/04/17 - Subjective Subjective: IS STATUS POST ORIF OF THE RIGHT FEMUR. SHE IS ALERT AND ORIENTED, LYING IN BED ON MORNING ROUNDS. PATIENT IS NOTED WITH COMPLAINTS OF RIGHT HIP PAIN, WITH SOME IMPROVEMENT SINCE YESTERDAY. DRESSING IS DRY AND INTACT WITH NO SIGNS/SX INFECTION NOTED. VITAL SIGNS THIS MORNING WERE 98.5-79- 20-100%-144/67. CBC, CMP WERE OBTAINED. ABNORMAL LAB VALUES INCLUDE THE FOLLOWING: WBC HAS DECREASED FROM 16.8 TO 11.0, RBC 2.88, HGB 9.4, HCT 26.7, BUN 34, CREATININE 1.63, GLUCOSE 116. HAS BEEN FOLLOWING UP WITH PATIENT AND FOLLOWING LABS. HE HAS ADDED VANCOMYCIN 1GM IV Q36H FOR INFECTION. PHYSICAL THERAPY SPOKE WITH US AND REPORTED THAT PATIENT IS AMBULATING WELL AND FEELS LIKE THE 14 DAYS ALLOWED FOR SWINGBED WILL BE SUFFICIENT FOR PATIENT RATHER THAN TRANSFERRING TO [facility] FOR THERAPY. WE WILL DISCUSS WITH CASE MANAGEMENT AND . OTHERWISE, WE WILL CONTINUE WITH CURRENT PLAN OF CARE. WE PLAN TO RECHECK CBC AND CMP AND FOLLOW UP WITH PATIENT IN THE AM. - Past Medical Family Social History Past Med/Fam/Surg Hx: No changes since H&P Allergies: Allergies cephalexin [From Keflex] Adverse Reaction (Verified 07/28/17 19:58) morphine Adverse Reaction (Verified 07/28/17 19:58) sertraline [From Zoloft] Adverse Reaction (Verified 07/28/17 19:58) - Review of Systems ROS: No change since H&P - Vital Signs and I&O's Vital Signs: Temperature 97.6 F Pulse Rate [Right Brachial] 73 Pulse Rate [Left Brachial] 70 Pulse Rate 90 Respiratory Rate 18 Blood Pressure [Left Arm] 122/59 Blood Pressure [Right Arm] 143/59 Blood Pressure [Standing] 145/70 Blood Pressure [Sitting] 149/65 Blood Pressure [Lying] 171/74 Blood Pressure 128/60 O2 Sat by Pulse Oximetry 98 Intake and Output: Intake & Output 08/03/17 08/04/17 08/05/17 08/06/17 11:59 11:59 11:59 11:59 Intake Total 2383 471 3302 Output Total 1425 950 750 Balance -425 -90 790 - Physical Exam Oriented: Normal Eyes: Normal Ear: Normal Nose: Normal Throat: Normal Respiratory: Normal Cardiovascular: Normal : Normal Auscultation: Bowel Sounds: Normal Tenderness: Normal Skin: Wound (SURGICAL WOUND TO RIGHT HIP/LEG ) Musculoskeletal: Right, Hip, Thigh, Swelling, Tender, Deformity, Instability Psychiatric: Normal Mood Description: Calm Affect: Normal Speech Pattern: Clear, Appropriate - Laboratory and Diagnostics Result Diagrams: 08/05/17 05:00 08/05/17 05:00 Labs: 08/03/17 18:26 Urine,Catheterized Urine Culture - Preliminary [facility] Laboratory WBC 10.3 X10^3/uL (3.6-10.0) H 08/05/17 05:00 RBC 2.95 X10^6/uL (3.5-5.4) L 08/05/17 05:00 Hgb 9.4 g/dL (12.0-16.0) L 08/05/17 05:00 Hct 27.4 % (36.0-47.0) L 08/05/17 05:00 MCV 92.9 fL (80.0-100.0) 08/05/17 05:00 MCH 32.0 pg (27.0-34.0) 08/05/17 05:00 MCHC 34.5 g/dL (33.0-35.0) 08/05/17 05:00 RDW 16.3 % (11.6-16.5) 08/05/17 05:00 Plt Count 243 X10^3/uL (150.0-450.0) 08/05/17 05:00 Plt Count Comment Adequate (ADEQUATE) 08/05/17 05:00 MPV 7.7 fL (7.4-11.0) 08/05/17 05:00 Neut % 75.0 % (42.0-75.0) 08/05/17 05:00 Lymph % 11.3 % (21.0-51.0) L 08/05/17 05:00 [place] % 9.6 % (0.0-13.0) 08/05/17 05:00 Eos % 3.5 % (0.9-2.9) H 08/05/17 05:00 Baso % 0.6 % (0.2-1.0) 08/05/17 05:00 Neut # 7.7 x10^3/uL (2.2-4.8) H 08/05/17 05:00 Lymph # 1.2 X10^3/uL (1.3-2.9) L 08/05/17 05:00 [place] # 1.0 x10^3/uL (0.3-0.8) H 08/05/17 05:00 Eos # 0.4 x10^3/uL (0.0-0.2) H 08/05/17 05:00 Baso # 0.1 X10^3/uL (0.0-0.1) 08/05/17 05:00 Absolute Nucleated RBC 0.0 /100WBC 08/05/17 05:00 Total Counted 100 08/05/17 05:00 Neutrophils % (Manual) 66 % (39-76) 08/05/17 05:00 Band Neutrophils % 10 % (0-10) 08/05/17 05:00 Lymphocytes % (Manual) 15 % (13-43) 08/05/17 05:00 Monocytes % (Manual) 6 % (4-9) 08/05/17 05:00 Eosinophils % (Manual) 3 % (0-6) 08/05/17 05:00 Plt Morphology Comment Normal (NORMAL) 08/05/17 05:00 RBC Morphology Normal (NORMAL) 08/05/17 05:00 ESR 8 MM/HOUR (0-20) 07/28/17 15:41 INR Target Range - 07/28/17 15:41 INR 1.08 (0.8-1.3) 07/28/17 15:41 PTT 25.9 SECONDS (22.9-36.5) 07/28/17 15:41 PTT Comment - 07/28/17 15:41 Sodium 135 mmol/L (136-145) L 08/05/17 05:00 Corrected Sodium 136 mmol/L (136-145) 08/05/17 05:00 Potassium 4.8 mmol/L (3.5-5.1) 08/05/17 05:00 Chloride 103 mmol/L (98-107) 08/05/17 05:00 Carbon Dioxide 25.0 mmol/L (21-32) 08/05/17 05:00 BUN 29 mg/dL (7-18) H 08/05/17 05:00 Creatinine 1.47 mg/dL (0.55-1.02) H 08/05/17 05:00 Est GFR (MDRD) Af Amer 43 (>60) L 08/05/17 05:00 Est GFR (MDRD) Non-Af 36 (>60) L 08/05/17 05:00 Glucose 122 mg/dL (65-99) H 08/05/17 05:00 Calcium 8.5 mg/dL (8.5-10.1) 08/05/17 05:00 Corrected Calcium 9.5 mg/dL (8.5-10.1) 08/05/17 05:00 Total Bilirubin 0.60 mg/dL (0.2-1.0) 08/05/17 05:00 AST 25 Units/L (15-37) 08/05/17 05:00 ALT 41 Units/L (12-78) 08/05/17 05:00 Alkaline Phosphatase 57 Units/L (46-116) 08/05/17 05:00 C-Reactive Protein < 0.50 mg/L (0-3.0) 07/28/17 15:41 Total Protein 6.0 g/dL (6.4-8.2) L 08/05/17 05:00 Albumin 2.8 g/dL (3.4-5.0) L 08/05/17 05:00 Globulin 3.2 g/dL (2.5-4.5) 08/05/17 05:00 Albumin/Globulin Ratio 0.9 Ratio (1.1-2.1) L 08/05/17 05:00 Specimen Type Catherized urine 08/03/17 18:26 Urine Color Yellow (YELLOW) 08/03/17 18:26 Urine Appearance Slightly hazy (CLEAR) 08/03/17 18:26 Urine pH 8.0 (5.0 - 8.0) 08/03/17 18:26 Ur Specific [place] 1.015 (1.000-1.030) 08/03/17 18:26 Urine Protein 3+ (NEGATIVE) 08/03/17 18:26 Urine Glucose (UA) Negative (NEGATIVE) 08/03/17 18:26 Urine Ketones Negative (NEGATIVE) 08/03/17 18:26 Urine Occult Blood 4+ (NEGATIVE) 08/03/17 18:26 Urine Nitrite Positive (NEGATIVE) 08/03/17 18:26 Urine Bilirubin Negative (NEGATIVE) 08/03/17 18:26 Urine Urobilinogen Normal (NORMAL) 08/03/17 18:26 Ur Leukocyte Esterase 3+ (NEGATIVE) 08/03/17 18:26 Urine RBC 3-5 /HPF (NEGATIVE) 08/03/17 18:26 Urine WBC 10-15 /HPF (NEGATIVE) 08/03/17 18:26 Ur Squamous Epith Cells Rare /HPF (NEGATIVE) 08/03/17 18:26 Triple Phos Crystals Few /HPF (NEGATIVE) 08/03/17 18:26 Urine Bacteria 1+ /HPF (NEGATIVE) 08/03/17 18:26 Hyaline Casts Few /LPF (NEGATIVE) 08/03/17 18:26 Ur Culture Indicated? Yes/culture set up 08/03/17 18:26 Blood Type B NEGATIVE 07/28/17 18:18 Antibody Screen Negative 07/28/17 18:18 Crossmatch See Detail 07/28/17 18:18 - Plan (1) Right femoral fracture Status: Acute Qualifiers: Encounter type: initial encounter Femur location: intertrochanteric Fracture type: closed Fracture alignment: displaced Qualified Code(s): S72.141A - Displaced intertrochanteric fracture of right femur, initial encounter for closed fracture Plan: OPEN REDUCTION INTERNAL FIXATION, DILAUDID 2MG Q1H PRN PAIN, TORADOL 30MG IV Q2H PRN PAIN, CONTINUE TO MONITOR (2) Depression Status: Chronic Qualifiers: Depression Type: major depressive disorder Major depression recurrence: recurrent Active/Remission status: currently active Major depression episode severity: moderate Qualified Code(s): F33.1 - Major depressive disorder, recurrent, moderate Plan: CONTINUE CELEXA 40MG PO DAILY, CONTINUE TO MONITOR (3) GERD (gastroesophageal reflux disease) Status: Chronic Qualifiers: Esophagitis presence: esophagitis presence not specified Qualified Code(s) : K21.9 - Gastro-esophageal reflux disease without esophagitis Plan: CONTINUE PEPCID 20MG DAILY, CONTINUE TO MONITOR (4) Hypertension Status: Chronic Qualifiers: Hypertension type: essential hypertension Qualified Code(s): I10 - Essential (primary) hypertension Plan: CONTINUE COREG 6.25MG BID, CONTINUE CATAPRES 0.1MG PO HS, CONTINUE LISINOPRIL 20MG PO DAILY, CONTINUE TO MONITOR (5) Vertigo Status: Chronic Plan: CONTINUE MECLIZINE 25MG PO HS, CONTINUE TO MONITOR (6) Urinary tract infection Status: Acute Qualifiers: Urinary tract infection type: acute cystitis Hematuria presence: with hematuria Qualified Code(s): N30.01 - Acute cystitis with hematuria Plan: LEVAQUIN 500MG IV DAILY
--- NOTE | 2017-08-05 14:04 | RAD ---
HISTORY: Right hip pain Study: AP pelvis Comparison: None Findings: The bones are osteopenic. The visualized pelvic bones and SI joints are intact. The patient is status post remote left hip hemiarthroplasty in good position. The patient is immediately status post right hip total arthroplasty in good position. Surgical marco are present at the operative site. IMPRESSION: Osteopenia No acute findings Postsurgical changes as above Reported By:
--- NOTE | 2017-08-05 14:47 | RAD ---
HISTORY: Follow up right femur fracture Study: Right femur two views AP and lateral Comparison: July 28, 2017 Findings: The previously noted periprosthetic fracture has undergone open reduction internal fixation with a pl ate and multiple wires. Position alignment is anatomic. Surgical marco are present at the operative site. IMPRESSION: Status post successful open reduction, internal fixation periprosthetic femoral shaft fracture Reported By:
--- NOTE | 2017-08-05 14:48 | RAD ---
HISTORY: Right lower extremity pain post hip surgery Study: Right tibia and fibula two views AP and lateral Comparison: None Findings: There is no evidence for fracture, lytic, or blastic lesion. No abnormal periosteal reaction or soft tissue abnormality is identified. IMPRESSION: No significant abnormality identified Reported By:
[2017-08-05] MEDS: DILAUDID INJ IVP PRN (19:29)
[2017-08-05] MEDS: ZOFRAN INJ 4 MG VIAL IVP PRN (19:30)
[2017-08-05] MEDS: PHARMACY CONSULT - VANCOMYCIN XX SCH (20:47)
[2017-08-05] MEDS: CATAPRES TAB 0.1 MG PO SCH (20:52)
[2017-08-05] MEDS: ANTIVERT TAB 25 MG PO SCH (20:56)
[2017-08-06 05:35] LABS: ALANINE AMINOTRANSFERASE 35 Units/L (12-78); ALKALINE PHOSPHATASE 50 Units/L (46-116); ASPARTATE AMINO TRANSFERASE 22 Units/L (15-37); BLOOD UREA NITROGEN 26 mg/dL (7-18); CALCIUM 8.7 mg/dL (8.5-10.1); CARBON DIOXIDE 26.1 mmol/L (21-32); CHLORIDE 103 mmol/L (98-107); COR CA(FOR HYPOALB) 9.5 mg/dL (8.5-10.1); CREATININE 1.55 mg/dL (0.55-1.02); SODIUM 135 mmol/L (136-145); eGFR BLACK RACES 41 (>60); eGFR NON BLACK RACES 34 (>60)
[2017-08-06 06:09] LABS: BASOPHILS % (AUTO) 0.4 % (0.2-1.0); EOSINOPHILS # (AUTO) 0.3 x10^3/uL (0.0-0.2); EOSINOPHILS % (AUTO) 2.6 % (0.9-2.9); HEMATOCRIT 25.7 % (36.0-47.0); LYMPHOCYTES # (AUTO) 1.2 X10^3/uL (1.3-2.9); LYMPHOCYTES % (AUTO) 11.5 % (21.0-51.0); MEAN CORPUSCULAR HEMOGLOBIN 32.5 pg (27.0-34.0); MEAN CORPUSCULAR VOLUME 92.9 fL (80.0-100.0); MEAN PLATELET VOLUME 7.6 fL (7.4-11.0); MONOCYTES # (AUTO) 0.9 x10^3/uL (0.3-0.8); MONOCYTES % (AUTO) 8.4 % (0.0-13.0); NEUTROPHILS % (AUTO) 77.1 % (42.0-75.0); PLATELET COUNT 246 X10^3/uL (150.0-450.0); RED BLOOD COUNT 2.77 X10^6/uL (3.5-5.4); RED CELL DISTRIBUTION WIDTH 16.2 % (11.6-16.5); WHITE BLOOD COUNT 10.3 X10^3/uL (3.6-10.0)
[2017-08-06 06:55] LABS: BAND NEUTROPHILS % 9 % (0-10); METAMYELOCYTES % 3; PLATELET MORPHOLOGY COMMENT NORMAL (NORMAL)
[2017-08-06] MEDS ORDERED: ZESTRIL TAB 20 MG ONE (08:13)
[2017-08-06] MEDS: TORADOL 30 MG VIAL IVP SCH ×2 (08:30→21:13)
[2017-08-06] MEDS: ZESTRIL TAB 20 MG PO SCH (08:32)
[2017-08-06] MEDS: CELEXA PO SCH (08:32)
[2017-08-06] MEDS: COREG TAB 6.25 MG PO SCH ×2 (08:32→21:13)
[2017-08-06] MEDS: ALBUMIN HUMAN 25%- 100ML 100 ML IV SCH (08:33)
[2017-08-06] MEDS: PEPCID TAB 20 MG PO SCH (08:33)
[2017-08-06] MEDS: D5W 1000 ML IV 1,000 ML IV SCH ×2 (08:36→20:23)
[2017-08-06] MEDS: VANCOMYCIN 1 GM PREMIX (ADDVANTAGE) 250 ML IV SCH (08:36)
[2017-08-06] MEDS: LOVENOX INJ 40 MG SYR SC SCH (08:37)
--- NOTE | 2017-08-06 11:23 | PCM.PROG ---
Progress Note - Progress Note for Day of Date: 08/05/17 - Subjective Subjective: IS STATUS POST ORIF OF THE RIGHT FEMUR. SHE IS ALERT AND ORIENTED, LYING IN BED ON MORNING ROUNDS. PATIENT CONTINUES WITH COMPLAINTS OF RIGHT HIP PAIN. PATIENT REPORTS THAT PAIN IS ONLY PRESENT WHEN SHE IS UP MOVING AROUND. DRESSING TO RIGHT HIP IS DRY AND INTACT WITH NO SIGNS/SX INFECTION NOTED. VITAL SIGNS THIS MORNING ARE 97.9-64-70-98-143/59. CBC, CMP WERE OBTAINED. ABNORMAL LAB VALUES INCLUDE THE FOLLOWING: WBC 10.3, RBC 2.95, HGB 9.4 , HCT 27.4, SODIUM 135, BUN 29, CREATININE 1.47, GLUCOSE 122. IS FOLLOWING PATIENT AND ORDERED REPEAT XRAYS OF THE PELVIS/FEMUR. PELVIS XRAY REPORTED OSTEOPENIA WITH SURGICAL CHANGES NOTED. NO ACUTE FINDINGS. FEMUR XRAY REPORTS STATUS POST SUCCESSFUL OPEN REDUCTION, INTERNAL FIXATION PERIPROSTHETIC FOMORAL SHAFT FRACTURE. RIGHT TIB/FIB XRAY REPORTS NO SIGNIFICANT ABNORMALITY IDENTIFIED. PATIENT WILL CONTINUE WITH PHYSICAL THERAPY. WE PLAN ON TRANSITIONING PATIENT TO SWINGBED STATUS IN THE NEXT FEW DAYS. WE WILL CONTINUE WITH CURRENT PLAN OF CARE. WE PLAN TO RECHECK CBC AND CMP AND FOLLOW UP WITH PATIENT IN THE AM. - Past Medical Family Social History Past Med/Fam/Surg Hx: No changes since H&P Allergies: Allergies cephalexin [From Keflex] Adverse Reaction (Verified 07/28/17 19:58) morphine Adverse Reaction (Verified 07/28/17 19:58) sertraline [From Zoloft] Adverse Reaction (Verified 07/28/17 19:58) - Review of Systems ROS: No change since H&P - Vital Signs and I&O's Vital Signs: Temperature 97.4 F Pulse Rate [Right Brachial] 73 Pulse Rate [Left Brachial] 79 Pulse Rate 90 Respiratory Rate 20 Blood Pressure [Left Arm] 138/62 Blood Pressure [Right Arm] 143/59 Blood Pressure [Standing] 145/70 Blood Pressure [Sitting] 149/65 Blood Pressure [Lying] 171/74 Blood Pressure 128/60 O2 Sat by Pulse Oximetry 98 Intake and Output: Intake & Output 08/03/17 08/04/17 08/05/17 08/06/17 11:59 11:59 11:59 11:59 Intake Total 6056 768 2587 1010 Output Total 1425 950 750 128 Balance -425 -90 790 882 - Physical Exam Oriented: Normal Eyes: Normal Ear: Normal Nose: Normal Throat: Normal Respiratory: Normal Cardiovascular: Normal : Normal Auscultation: Bowel Sounds: Normal Palpation: Normal Tenderness: Normal Skin: Wound (SURGICAL WOUND TO RIGHT HIP/LEG ) Musculoskeletal: Right, Hip, Thigh, Swelling, Tender, Deformity, Instability Psychiatric: Normal Mood Description: Calm Affect: Normal Speech Pattern: Clear, Appropriate - Laboratory and Diagnostics Result Diagrams: 08/06/17 03:10 08/06/17 03:10 Labs: 08/03/17 18:26 Urine,Catheterized Urine Culture - Final Proteus [facility]abil[facility] Escherichia Coli Laboratory WBC 10.3 X10^3/uL (3.6-10.0) H 08/06/17 03:10 RBC 2.77 X10^6/uL (3.5-5.4) L 08/06/17 03:10 Hgb 9.0 g/dL (12.0-16.0) L 08/06/17 03:10 Hct 25.7 % (36.0-47.0) L 08/06/17 03:10 MCV 92.9 fL (80.0-100.0) 08/06/17 03:10 MCH 32.5 pg (27.0-34.0) 08/06/17 03:10 MCHC 35.0 g/dL (33.0-35.0) 08/06/17 03:10 RDW 16.2 % (11.6-16.5) 08/06/17 03:10 Plt Count 246 X10^3/uL (150.0-450.0) 08/06/17 03:10 Plt Count Comment Adequate (ADEQUATE) 08/06/17 03:10 MPV 7.6 fL (7.4-11.0) 08/06/17 03:10 Neut % 77.1 % (42.0-75.0) H 08/06/17 03:10 Lymph % 11.5 % (21.0-51.0) L 08/06/17 03:10 [place] % 8.4 % (0.0-13.0) 08/06/17 03:10 Eos % 2.6 % (0.9-2.9) 08/06/17 03:10 Baso % 0.4 % (0.2-1.0) 08/06/17 03:10 Neut # 8.0 x10^3/uL (2.2-4.8) H 08/06/17 03:10 Lymph # 1.2 X10^3/uL (1.3-2.9) L 08/06/17 03:10 [place] # 0.9 x10^3/uL (0.3-0.8) H 08/06/17 03:10 Eos # 0.3 x10^3/uL (0.0-0.2) H 08/06/17 03:10 Baso # 0.0 X10^3/uL (0.0-0.1) 08/06/17 03:10 Absolute Nucleated RBC 0.0 /100WBC 08/06/17 03:10 Total Counted 100 08/06/17 03:10 Neutrophils % (Manual) 65 % (39-76) 08/06/17 03:10 Band Neutrophils % 9 % (0-10) 08/06/17 03:10 Lymphocytes % (Manual) 19 % (13-43) 08/06/17 03:10 Monocytes % (Manual) 4 % (4-9) 08/06/17 03:10 Eosinophils % (Manual) 3 % (0-6) 08/05/17 05:00 Metamyelocytes % 3 08/06/17 03:10 Plt Morphology Comment Normal (NORMAL) 08/06/17 03:10 RBC Morphology Normal (NORMAL) 08/06/17 03:10 ESR 8 MM/HOUR (0-20) 07/28/17 15:41 INR Target Range - 07/28/17 15:41 INR 1.08 (0.8-1.3) 07/28/17 15:41 PTT 25.9 SECONDS (22.9-36.5) 07/28/17 15:41 PTT Comment - 07/28/17 15:41 Sodium 135 mmol/L (136-145) L 08/06/17 03:10 Corrected Sodium TNP 08/06/17 03:10 Potassium 4.6 mmol/L (3.5-5.1) 08/06/17 03:10 Chloride 103 mmol/L (98-107) 08/06/17 03:10 Carbon Dioxide 26.1 mmol/L (21-32) 08/06/17 03:10 BUN 26 mg/dL (7-18) H 08/06/17 03:10 Creatinine 1.55 mg/dL (0.55-1.02) H 08/06/17 03:10 Est GFR (MDRD) Af Amer 41 (>60) L 08/06/17 03:10 Est GFR (MDRD) Non-Af 34 (>60) L 08/06/17 03:10 Glucose 109 mg/dL (65-99) H 08/06/17 03:10 Calcium 8.7 mg/dL (8.5-10.1) 08/06/17 03:10 Corrected Calcium 9.5 mg/dL (8.5-10.1) 08/06/17 03:10 Total Bilirubin 0.80 mg/dL (0.2-1.0) 08/06/17 03:10 AST 22 Units/L (15-37) 08/06/17 03:10 ALT 35 Units/L (12-78) 08/06/17 03:10 Alkaline Phosphatase 50 Units/L (46-116) 08/06/17 03:10 C-Reactive Protein < 0.50 mg/L (0-3.0) 07/28/17 15:41 Total Protein 6.0 g/dL (6.4-8.2) L 08/06/17 03:10 Albumin 3.0 g/dL (3.4-5.0) L 08/06/17 03:10 Globulin 3.0 g/dL (2.5-4.5) 08/06/17 03:10 Albumin/Globulin Ratio 1.0 Ratio (1.1-2.1) L 08/06/17 03:10 Specimen Type Catherized urine 08/03/17 18:26 Urine Color Yellow (YELLOW) 08/03/17 18:26 Urine Appearance Slightly hazy (CLEAR) 08/03/17 18:26 Urine pH 8.0 (5.0 - 8.0) 08/03/17 18:26 Ur Specific [place] 1.015 (1.000-1.030) 08/03/17 18:26 Urine Protein 3+ (NEGATIVE) 08/03/17 18:26 Urine Glucose (UA) Negative (NEGATIVE) 08/03/17 18:26 Urine Ketones Negative (NEGATIVE) 08/03/17 18:26 Urine Occult Blood 4+ (NEGATIVE) 08/03/17 18:26 Urine Nitrite Positive (NEGATIVE) 08/03/17 18:26 Urine Bilirubin Negative (NEGATIVE) 08/03/17 18:26 Urine Urobilinogen Normal (NORMAL) 08/03/17 18:26 Ur Leukocyte Esterase 3+ (NEGATIVE) 08/03/17 18:26 Urine RBC 3-5 /HPF (NEGATIVE) 08/03/17 18:26 Urine WBC 10-15 /HPF (NEGATIVE) 08/03/17 18:26 Ur Squamous Epith Cells Rare /HPF (NEGATIVE) 08/03/17 18:26 Triple Phos Crystals Few /HPF (NEGATIVE) 08/03/17 18:26 Urine Bacteria 1+ /HPF (NEGATIVE) 08/03/17 18:26 Hyaline Casts Few /LPF (NEGATIVE) 08/03/17 18:26 Ur Culture Indicated? Yes/culture set up 08/03/17 18:26 Blood Type B NEGATIVE 07/28/17 18:18 Antibody Screen Negative 07/28/17 18:18 Crossmatch See Detail 07/28/17 18:18 - Plan (1) Right femoral fracture Status: Acute Qualifiers: Encounter type: initial encounter Femur location: intertrochanteric Fracture type: closed Fracture alignment: displaced Qualified Code(s): S72.141A - Displaced intertrochanteric fracture of right femur, initial encounter for closed fracture Plan: OPEN REDUCTION INTERNAL FIXATION, DILAUDID 2MG Q1H PRN PAIN, TORADOL 30MG IV Q2H PRN PAIN, CONTINUE TO MONITOR (2) Depression Status: Chronic Qualifiers: Depression Type: major depressive disorder Major depression recurrence: recurrent Active/Remission status: currently active Major depression episode severity: moderate Qualified Code(s): F33.1 - Major depressive disorder, recurrent, moderate Plan: CONTINUE CELEXA 40MG PO DAILY, CONTINUE TO MONITOR (3) GERD (gastroesophageal reflux disease) Status: Chronic Qualifiers: Esophagitis presence: esophagitis presence not specified Qualified Code(s) : K21.9 - Gastro-esophageal reflux disease without esophagitis Plan: CONTINUE PEPCID 20MG DAILY, CONTINUE TO MONITOR (4) Hypertension Status: Chronic Qualifiers: Hypertension type: essential hypertension Qualified Code(s): I10 - Essential (primary) hypertension Plan: CONTINUE COREG 6.25MG BID, CONTINUE CATAPRES 0.1MG PO HS, CONTINUE LISINOPRIL 20MG PO DAILY, CONTINUE TO MONITOR (5) Vertigo Status: Chronic Plan: CONTINUE MECLIZINE 25MG PO HS, CONTINUE TO MONITOR (6) Urinary tract infection Status: Acute Qualifiers: Urinary tract infection type: acute cystitis Hematuria presence: with hematuria Qualified Code(s): N30.01 - Acute cystitis with hematuria Plan: LEVAQUIN 500MG IV DAILY
[2017-08-06] MEDS: NORCO 5/325 MG TAB PO PRN (12:07)
--- NOTE | 2017-08-06 17:32 | PCM.PROG ---
Progress Note - Progress Note for Day of Date: 08/05/17 - Subjective Subjective: she is doing okay. zulma pain with ambulation expected. dressing clean and dry. No signs of infection. UTI being treated. we will continue PT. - Past Medical Family Social History Past Med/Fam/Surg Hx: No changes since H&P Allergies: Allergies cephalexin [From Keflex] Adverse Reaction (Verified 07/28/17 19:58) morphine Adverse Reaction (Verified 07/28/17 19:58) sertraline [From Zoloft] Adverse Reaction (Verified 07/28/17 19:58) - Review of Systems ROS: No change since H&P - Vital Signs and I&O's Vital Signs: Temperature 98.0 F Pulse Rate [Right Brachial] 73 Pulse Rate [Left Brachial] 76 Pulse Rate 96 Respiratory Rate 18 Blood Pressure [Left Arm] 144/66 Blood Pressure [Right Arm] 143/59 Blood Pressure [Standing] 145/70 Blood Pressure [Sitting] 149/65 Blood Pressure [Lying] 171/74 Blood Pressure 128/60 O2 Sat by Pulse Oximetry 94 Intake and Output: Intake & Output 08/04/17 08/05/17 08/06/17 08/07/17 11:59 11:59 11:59 11:59 Intake Total 860 1540 1010 970 Output Total 950 750 128 Balance -90 790 882 970 - Physical Exam Oriented: Normal Eyes: Normal Ear: Normal Nose: Normal Throat: Normal Respiratory: Normal Cardiovascular: Normal : Normal Auscultation: Bowel Sounds: Normal Tenderness: Normal Skin: Wound (SURGICAL WOUND TO RIGHT HIP/LEG ) Musculoskeletal: Right, Hip, Thigh, Swelling, Tender, Deformity, Instability Psychiatric: Normal Mood Description: Calm Affect: Normal Speech Pattern: Clear, Appropriate - Laboratory and Diagnostics Result Diagrams: 08/06/17 03:10 08/06/17 03:10 Labs: 08/03/17 18:26 Urine,Catheterized Urine Culture - Final Proteus [facility]abil[facility] Escherichia Coli Laboratory WBC 10.3 X10^3/uL (3.6-10.0) H 08/06/17 03:10 RBC 2.77 X10^6/uL (3.5-5.4) L 08/06/17 03:10 Hgb 9.0 g/dL (12.0-16.0) L 08/06/17 03:10 Hct 25.7 % (36.0-47.0) L 08/06/17 03:10 MCV 92.9 fL (80.0-100.0) 08/06/17 03:10 MCH 32.5 pg (27.0-34.0) 08/06/17 03:10 MCHC 35.0 g/dL (33.0-35.0) 08/06/17 03:10 RDW 16.2 % (11.6-16.5) 08/06/17 03:10 Plt Count 246 X10^3/uL (150.0-450.0) 08/06/17 03:10 Plt Count Comment Adequate (ADEQUATE) 08/06/17 03:10 MPV 7.6 fL (7.4-11.0) 08/06/17 03:10 Neut % 77.1 % (42.0-75.0) H 08/06/17 03:10 Lymph % 11.5 % (21.0-51.0) L 08/06/17 03:10 [place] % 8.4 % (0.0-13.0) 08/06/17 03:10 Eos % 2.6 % (0.9-2.9) 08/06/17 03:10 Baso % 0.4 % (0.2-1.0) 08/06/17 03:10 Neut # 8.0 x10^3/uL (2.2-4.8) H 08/06/17 03:10 Lymph # 1.2 X10^3/uL (1.3-2.9) L 08/06/17 03:10 [place] # 0.9 x10^3/uL (0.3-0.8) H 08/06/17 03:10 Eos # 0.3 x10^3/uL (0.0-0.2) H 08/06/17 03:10 Baso # 0.0 X10^3/uL (0.0-0.1) 08/06/17 03:10 Absolute Nucleated RBC 0.0 /100WBC 08/06/17 03:10 Total Counted 100 08/06/17 03:10 Neutrophils % (Manual) 65 % (39-76) 08/06/17 03:10 Band Neutrophils % 9 % (0-10) 08/06/17 03:10 Lymphocytes % (Manual) 19 % (13-43) 08/06/17 03:10 Monocytes % (Manual) 4 % (4-9) 08/06/17 03:10 Eosinophils % (Manual) 3 % (0-6) 08/05/17 05:00 Metamyelocytes % 3 08/06/17 03:10 Plt Morphology Comment Normal (NORMAL) 08/06/17 03:10 RBC Morphology Normal (NORMAL) 08/06/17 03:10 ESR 8 MM/HOUR (0-20) 07/28/17 15:41 INR Target Range - 07/28/17 15:41 INR 1.08 (0.8-1.3) 07/28/17 15:41 PTT 25.9 SECONDS (22.9-36.5) 07/28/17 15:41 PTT Comment - 07/28/17 15:41 Sodium 135 mmol/L (136-145) L 08/06/17 03:10 Corrected Sodium TNP 08/06/17 03:10 Potassium 4.6 mmol/L (3.5-5.1) 08/06/17 03:10 Chloride 103 mmol/L (98-107) 08/06/17 03:10 Carbon Dioxide 26.1 mmol/L (21-32) 08/06/17 03:10 BUN 26 mg/dL (7-18) H 08/06/17 03:10 Creatinine 1.55 mg/dL (0.55-1.02) H 08/06/17 03:10 Est GFR (MDRD) Af Amer 41 (>60) L 08/06/17 03:10 Est GFR (MDRD) Non-Af 34 (>60) L 08/06/17 03:10 Glucose 109 mg/dL (65-99) H 08/06/17 03:10 Calcium 8.7 mg/dL (8.5-10.1) 08/06/17 03:10 Corrected Calcium 9.5 mg/dL (8.5-10.1) 08/06/17 03:10 Total Bilirubin 0.80 mg/dL (0.2-1.0) 08/06/17 03:10 AST 22 Units/L (15-37) 08/06/17 03:10 ALT 35 Units/L (12-78) 08/06/17 03:10 Alkaline Phosphatase 50 Units/L (46-116) 08/06/17 03:10 C-Reactive Protein < 0.50 mg/L (0-3.0) 07/28/17 15:41 Total Protein 6.0 g/dL (6.4-8.2) L 08/06/17 03:10 Albumin 3.0 g/dL (3.4-5.0) L 08/06/17 03:10 Globulin 3.0 g/dL (2.5-4.5) 08/06/17 03:10 Albumin/Globulin Ratio 1.0 Ratio (1.1-2.1) L 08/06/17 03:10 Specimen Type Catherized urine 08/03/17 18:26 Urine Color Yellow (YELLOW) 08/03/17 18:26 Urine Appearance Slightly hazy (CLEAR) 08/03/17 18:26 Urine pH 8.0 (5.0 - 8.0) 08/03/17 18:26 Ur Specific [place] 1.015 (1.000-1.030) 08/03/17 18:26 Urine Protein 3+ (NEGATIVE) 08/03/17 18:26 Urine Glucose (UA) Negative (NEGATIVE) 08/03/17 18:26 Urine Ketones Negative (NEGATIVE) 08/03/17 18:26 Urine Occult Blood 4+ (NEGATIVE) 08/03/17 18:26 Urine Nitrite Positive (NEGATIVE) 08/03/17 18:26 Urine Bilirubin Negative (NEGATIVE) 08/03/17 18:26 Urine Urobilinogen Normal (NORMAL) 08/03/17 18:26 Ur Leukocyte Esterase 3+ (NEGATIVE) 08/03/17 18:26 Urine RBC 3-5 /HPF (NEGATIVE) 08/03/17 18:26 Urine WBC 10-15 /HPF (NEGATIVE) 08/03/17 18:26 Ur Squamous Epith Cells Rare /HPF (NEGATIVE) 08/03/17 18:26 Triple Phos Crystals Few /HPF (NEGATIVE) 08/03/17 18:26 Urine Bacteria 1+ /HPF (NEGATIVE) 08/03/17 18:26 Hyaline Casts Few /LPF (NEGATIVE) 08/03/17 18:26 Ur Culture Indicated? Yes/culture set up 08/03/17 18:26 Blood Type B NEGATIVE 07/28/17 18:18 Antibody Screen Negative 07/28/17 18:18 Crossmatch See Detail 07/28/17 18:18 - Plan (1) Periprosthetic fracture around internal prosthetic right hip joint Status: Acute Plan: 1. pain magement. 2. DC shaw. 3. Urine culture. 4. PT/ OT- WBAT. 5. continue vancomycin IV.
--- NOTE | 2017-08-06 18:34 | PCM.PROG ---
Progress Note - Progress Note for Day of Date: 08/06/17 - Subjective Subjective: IS STATUS POST ORIF OF THE RIGHT FEMUR. SHE IS ALERT AND ORIENTED, LYING IN BED ON MORNING ROUNDS. PATIENT VOICES NO COMPLAINTS ON MORNING ROUNDS. A DRESSING IS NOTED TO THE RIGHT HIP. DRESSING IS DRY AND INTACT , WITH NO S/SX INFECTION NOTED TO SITE. HER VITAL SIGNS THIS MORNING ARE 97.6-67 -20-94%-125/68. CBC AND CMP WERE OBTAINED. ABNORMAL LAB VALUES INCLUDE THE FOLLOWING: WBC 10.3, RBC 2.77, HGB 9.0, HCT 25.7, SODIUM 135, BUN 26, CREATININE 1.55, GLUCOSE 109, TOTAL PROTEIN 6.0, ALBUMIN 3.0. PATINET CONTINUES WITH PHYSICAL THERAPY. THERAPIST REPORT THAT PATIENT IS AMBULATING WELL. WE PLAN TO TRANSITION PATIENT TO SWINGBED STATUS WITH IN THE NEXT FEW DAY. OTHERWISE, WE WILL CONTINUE WITH CURRENT PLAN OF CARE. WE PLAN TO OBTAIN A CBC, CMP, SED RATE, AND CRP IN THE MORNING. WE WILL CONTINUE TO MONITOR PATIENT. - Past Medical Family Social History Past Med/Fam/Surg Hx: No changes since H&P Allergies: Allergies cephalexin [From Keflex] Adverse Reaction (Verified 07/28/17 19:58) morphine Adverse Reaction (Verified 07/28/17 19:58) sertraline [From Zoloft] Adverse Reaction (Verified 07/28/17 19:58) - Review of Systems ROS: No change since H&P - Vital Signs and I&O's Vital Signs: Temperature 98.0 F Pulse Rate [Right Brachial] 73 Pulse Rate [Left Brachial] 76 Pulse Rate 96 Respiratory Rate 18 Blood Pressure [Left Arm] 144/66 Blood Pressure [Right Arm] 143/59 Blood Pressure [Standing] 145/70 Blood Pressure [Sitting] 149/65 Blood Pressure [Lying] 171/74 Blood Pressure 128/60 O2 Sat by Pulse Oximetry 94 Intake and Output: Intake & Output 08/04/17 08/05/17 08/06/17 08/07/17 11:59 11:59 11:59 11:59 Intake Total 860 1540 1010 970 Output Total 950 750 128 Balance -90 790 882 970 - Physical Exam Oriented: Normal Eyes: Normal Ear: Normal Nose: Normal Throat: Normal Respiratory: Normal Cardiovascular: Normal : Normal Auscultation: Bowel Sounds: Normal Palpation: Normal Tenderness: Normal Skin: Wound (SURGICAL WOUND TO RIGHT HIP/LEG ) Musculoskeletal: Right, Hip, Thigh, Swelling, Tender, Deformity, Instability Psychiatric: Normal Mood Description: Calm Affect: Normal Speech Pattern: Clear, Appropriate - Laboratory and Diagnostics Result Diagrams: 08/06/17 03:10 08/06/17 03:10 Labs: 08/03/17 18:26 Urine,Catheterized Urine Culture - Final Proteus Mirabilis Escherichia Coli Laboratory WBC 10.3 X10^3/uL (3.6-10.0) H 08/06/17 03:10 RBC 2.77 X10^6/uL (3.5-5.4) L 08/06/17 03:10 Hgb 9.0 g/dL (12.0-16.0) L 08/06/17 03:10 Hct 25.7 % (36.0-47.0) L 08/06/17 03:10 MCV 92.9 fL (80.0-100.0) 08/06/17 03:10 MCH 32.5 pg (27.0-34.0) 08/06/17 03:10 MCHC 35.0 g/dL (33.0-35.0) 08/06/17 03:10 RDW 16.2 % (11.6-16.5) 08/06/17 03:10 Plt Count 246 X10^3/uL (150.0-450.0) 08/06/17 03:10 Plt Count Comment Adequate (ADEQUATE) 08/06/17 03:10 MPV 7.6 fL (7.4-11.0) 08/06/17 03:10 Neut % 77.1 % (42.0-75.0) H 08/06/17 03:10 Lymph % 11.5 % (21.0-51.0) L 08/06/17 03:10 [place] % 8.4 % (0.0-13.0) 08/06/17 03:10 Eos % 2.6 % (0.9-2.9) 08/06/17 03:10 Baso % 0.4 % (0.2-1.0) 08/06/17 03:10 Neut # 8.0 x10^3/uL (2.2-4.8) H 08/06/17 03:10 Lymph # 1.2 X10^3/uL (1.3-2.9) L 08/06/17 03:10 [place] # 0.9 x10^3/uL (0.3-0.8) H 08/06/17 03:10 Eos # 0.3 x10^3/uL (0.0-0.2) H 08/06/17 03:10 Baso # 0.0 X10^3/uL (0.0-0.1) 08/06/17 03:10 Absolute Nucleated RBC 0.0 /100WBC 08/06/17 03:10 Total Counted 100 08/06/17 03:10 Neutrophils % (Manual) 65 % (39-76) 08/06/17 03:10 Band Neutrophils % 9 % (0-10) 08/06/17 03:10 Lymphocytes % (Manual) 19 % (13-43) 08/06/17 03:10 Monocytes % (Manual) 4 % (4-9) 08/06/17 03:10 Eosinophils % (Manual) 3 % (0-6) 08/05/17 05:00 Metamyelocytes % 3 08/06/17 03:10 Plt Morphology Comment Normal (NORMAL) 08/06/17 03:10 RBC Morphology Normal (NORMAL) 08/06/17 03:10 ESR 8 MM/HOUR (0-20) 07/28/17 15:41 INR Target Range - 07/28/17 15:41 INR 1.08 (0.8-1.3) 07/28/17 15:41 PTT 25.9 SECONDS (22.9-36.5) 07/28/17 15:41 PTT Comment - 07/28/17 15:41 Sodium 135 mmol/L (136-145) L 08/06/17 03:10 Corrected Sodium TNP 08/06/17 03:10 Potassium 4.6 mmol/L (3.5-5.1) 08/06/17 03:10 Chloride 103 mmol/L (98-107) 08/06/17 03:10 Carbon Dioxide 26.1 mmol/L (21-32) 08/06/17 03:10 BUN 26 mg/dL (7-18) H 08/06/17 03:10 Creatinine 1.55 mg/dL (0.55-1.02) H 08/06/17 03:10 Est GFR (MDRD) Af Amer 41 (>60) L 08/06/17 03:10 Est GFR (MDRD) Non-Af 34 (>60) L 08/06/17 03:10 Glucose 109 mg/dL (65-99) H 08/06/17 03:10 Calcium 8.7 mg/dL (8.5-10.1) 08/06/17 03:10 Corrected Calcium 9.5 mg/dL (8.5-10.1) 08/06/17 03:10 Total Bilirubin 0.80 mg/dL (0.2-1.0) 08/06/17 03:10 AST 22 Units/L (15-37) 08/06/17 03:10 ALT 35 Units/L (12-78) 08/06/17 03:10 Alkaline Phosphatase 50 Units/L (46-116) 08/06/17 03:10 C-Reactive Protein < 0.50 mg/L (0-3.0) 07/28/17 15:41 Total Protein 6.0 g/dL (6.4-8.2) L 08/06/17 03:10 Albumin 3.0 g/dL (3.4-5.0) L 08/06/17 03:10 Globulin 3.0 g/dL (2.5-4.5) 08/06/17 03:10 Albumin/Globulin Ratio 1.0 Ratio (1.1-2.1) L 08/06/17 03:10 Specimen Type Catherized urine 08/03/17 18:26 Urine Color Yellow (YELLOW) 08/03/17 18:26 Urine Appearance Slightly hazy (CLEAR) 08/03/17 18:26 Urine pH 8.0 (5.0 - 8.0) 08/03/17 18:26 Ur Specific [place] 1.015 (1.000-1.030) 08/03/17 18:26 Urine Protein 3+ (NEGATIVE) 08/03/17 18:26 Urine Glucose (UA) Negative (NEGATIVE) 08/03/17 18:26 Urine Ketones Negative (NEGATIVE) 08/03/17 18:26 Urine Occult Blood 4+ (NEGATIVE) 08/03/17 18:26 Urine Nitrite Positive (NEGATIVE) 08/03/17 18:26 Urine Bilirubin Negative (NEGATIVE) 08/03/17 18:26 Urine Urobilinogen Normal (NORMAL) 08/03/17 18:26 Ur Leukocyte Esterase 3+ (NEGATIVE) 08/03/17 18:26 Urine RBC 3-5 /HPF (NEGATIVE) 08/03/17 18:26 Urine WBC 10-15 /HPF (NEGATIVE) 08/03/17 18:26 Ur Squamous Epith Cells Rare /HPF (NEGATIVE) 08/03/17 18:26 Triple Phos Crystals Few /HPF (NEGATIVE) 08/03/17 18:26 Urine Bacteria 1+ /HPF (NEGATIVE) 08/03/17 18:26 Hyaline Casts Few /LPF (NEGATIVE) 08/03/17 18:26 Ur Culture Indicated? Yes/culture set up 08/03/17 18:26 Blood Type B NEGATIVE 07/28/17 18:18 Antibody Screen Negative 07/28/17 18:18 Crossmatch See Detail 07/28/17 18:18 - Plan (1) Right femoral fracture Status: Acute Qualifiers: Encounter type: initial encounter Femur location: intertrochanteric Fracture type: closed Fracture alignment: displaced Qualified Code(s): S72.141A - Displaced intertrochanteric fracture of right femur, initial encounter for closed fracture Plan: OPEN REDUCTION INTERNAL FIXATION, DILAUDID 2MG Q1H PRN PAIN, TORADOL 30MG IV Q2H PRN PAIN, CONTINUE TO MONITOR (2) Depression Status: Chronic Qualifiers: Depression Type: major depressive disorder Major depression recurrence: recurrent Active/Remission status: currently active Major depression episode severity: moderate Qualified Code(s): F33.1 - Major depressive disorder, recurrent, moderate Plan: CONTINUE CELEXA 40MG PO DAILY, CONTINUE TO MONITOR (3) GERD (gastroesophageal reflux disease) Status: Chronic Qualifiers: Esophagitis presence: esophagitis presence not specified Qualified Code(s) : K21.9 - Gastro-esophageal reflux disease without esophagitis Plan: CONTINUE PEPCID 20MG DAILY, CONTINUE TO MONITOR (4) Hypertension Status: Chronic Qualifiers: Hypertension type: essential hypertension Qualified Code(s): I10 - Essential (primary) hypertension Plan: CONTINUE COREG 6.25MG BID, CONTINUE CATAPRES 0.1MG PO HS, CONTINUE LISINOPRIL 20MG PO DAILY, CONTINUE TO MONITOR (5) Vertigo Status: Chronic Plan: CONTINUE MECLIZINE 25MG PO HS, CONTINUE TO MONITOR (6) Urinary tract infection Status: Acute Qualifiers: Urinary tract infection type: acute cystitis Hematuria presence: with hematuria Qualified Code(s): N30.01 - Acute cystitis with hematuria Plan: LEVAQUIN 500MG IV DAILY
[2017-08-06] MEDS: PHARMACY CONSULT - VANCOMYCIN XX SCH (20:23)
[2017-08-06] MEDS: CATAPRES TAB 0.1 MG PO SCH (21:13)
[2017-08-06] MEDS: ANTIVERT TAB 25 MG PO SCH (21:13)
[2017-08-07] MEDS: ZOFRAN INJ 4 MG VIAL IVP PRN ×2 (03:34→07:41)
[2017-08-07 06:04] LABS: BASOPHILS # (AUTO) 0.1 X10^3/uL (0.0-0.1); BASOPHILS % (AUTO) 0.4 % (0.2-1.0); EOSINOPHILS # (AUTO) 0.3 x10^3/uL (0.0-0.2); EOSINOPHILS % (AUTO) 2.2 % (0.9-2.9); HEMATOCRIT 24.4 % (36.0-47.0); HEMOGLOBIN 8.6 g/dL (12.0-16.0); LYMPHOCYTES # (AUTO) 0.8 X10^3/uL (1.3-2.9); LYMPHOCYTES % (AUTO) 6.8 % (21.0-51.0); MEAN CORPUSCULAR HEMOGLOBIN 32.5 pg (27.0-34.0); MEAN CORPUSCULAR HGB CONC 35.1 g/dL (33.0-35.0); MEAN CORPUSCULAR VOLUME 92.6 fL (80.0-100.0); MEAN PLATELET VOLUME 7.4 fL (7.4-11.0); MONOCYTES # (AUTO) 0.6 x10^3/uL (0.3-0.8); MONOCYTES % (AUTO) 5.1 % (0.0-13.0); NEUTROPHILS # (AUTO) 10.5 x10^3/uL (2.2-4.8); NEUTROPHILS % (AUTO) 85.5 % (42.0-75.0); PLATELET COUNT 241 X10^3/uL (150.0-450.0); RED BLOOD COUNT 2.64 X10^6/uL (3.5-5.4); RED CELL DISTRIBUTION WIDTH 16.1 % (11.6-16.5); WHITE BLOOD COUNT 12.3 X10^3/uL (3.6-10.0)
[2017-08-07 06:35] LABS: ALBUMIN 3.2 g/dL (3.4-5.0); C-REACTIVE PROTEIN 32.9 mg/L (0-3.0); CALCIUM 8.5 mg/dL (8.5-10.1); CARBON DIOXIDE 25.2 mmol/L (21-32); COR CA(FOR HYPOALB) 9.1 mg/dL (8.5-10.1); CREATININE 1.44 mg/dL (0.55-1.02)
[2017-08-07 07:05] LABS: BAND NEUTROPHILS % 5 % (0-10); ERYTHROCYTE SEDIMENTATION RATE 35 MM/HOUR (0-20); PLATELET MORPHOLOGY COMMENT NORMAL (NORMAL)
[2017-08-07] MEDS ORDERED: PEPCID TAB 20 MG PO SCH (09:00)
[2017-08-07] MEDS ORDERED: PROTONIX INJ 40 MG VIAL IVP SCH (10:00)
[2017-08-07] MEDS ORDERED: ZESTRIL TAB 20 MG ONE (10:01)
--- NOTE | 2017-08-07 10:26 | RAD ---
HISTORY: Nausea and vomiting Study: KUB Comparison: None Findings: Evaluation of the abdomen demonstrates a normal bowel gas pattern. No pathological soft tissue mass or calcification can be observed. The bony structures are grossly intact. IMPRESSION: 1. No evidence for acute abdominal pathology identified. Reported By:
[2017-08-07] MEDS: COREG TAB 6.25 MG PO SCH (10:48)
[2017-08-07] MEDS: LOVENOX INJ 40 MG SYR SC SCH (10:48)
[2017-08-07] MEDS: ALBUMIN HUMAN 25%- 100ML 100 ML IV SCH (10:48)
[2017-08-07] MEDS: CELEXA PO SCH (10:48)
[2017-08-07] MEDS: TORADOL 30 MG VIAL IVP SCH (10:49)
[2017-08-07] MEDS: ZESTRIL TAB 20 MG PO SCH (10:49)
[2017-08-07 12:34] VITALS: BP 185/78
[2017-08-07] MEDS: LEVAQUIN PREMIX IV 500 MG 500 MG/100 ML BAG IV SCH (12:34)
== END 2017-08-07 13:04 | disposition swing bed (61) | DRG 467 ==
LOC: ER 13:58 → MED/SURG 18:02
PROVIDERS: ADMIT Internal Medicine; ATTEND Internal Medicine
PROC: 30233N1 Transfusion of Nonautologous Red Blood Cells into Peripheral Vein, Percutaneous Approach (ICD-10-PCS; 2017-07-31)
PROC: 30233N1 Transfusion of Nonautologous Red Blood Cells into Peripheral Vein, Percutaneous Approach (ICD-10-PCS; 2017-07-31)
PROC: 0SWR0JZ Revision of Synthetic Substitute in Right Hip Joint, Femoral Surface, Open Approach (ICD-10-PCS; principal; 2017-07-31 08:30)
DX: M97.01XA Periprosthetic fracture around internal prosthetic right hip joint, initial encounter (principal); N30.01 Acute cystitis with hematuria; F33.1 Major depressive disorder, recurrent, moderate; E78.2 Mixed hyperlipidemia; W18.39XA Other fall on same level, initial encounter; B96.4 Proteus (mirabilis) (morganii) as the cause of diseases classified elsewhere; B96.29 Other Escherichia coli [E. coli] as the cause of diseases classified elsewhere; R26.89 Other abnormalities of gait and mobility; R42 Dizziness and giddiness; F41.8 Other specified anxiety disorders; M13.89 Other specified arthritis, multiple sites; I10 Essential (primary) hypertension; K21.9 Gastro-esophageal reflux disease without esophagitis
CPT/HCPCS: 36415; 36430; 51702; 71010; 72170; 73501; 73552; 73590; 73700; 74000; 80048; 80053; 81001; 85025; 85610; 85652; 85730; 86140; 86850; 86900; 86901; 86922; 87086; 87088; 87186; 93005; 94640; 94762; 96365; 96367; 96374; 96375; 97535; 99100; 99284; A4216; A4222; C9113; P9016; P9047; S0020; S0077; J0330; J0690; J1170; J1650; J1885; J1956; J2001; J2250; J2405; J2550; J2710; J3010; J3370; J3490; J7120

== ENCOUNTER 2017-08-07 13:04 | Inpatient (IN) | payer OTHER, MEDICARE ==
[2017-08-07] MEDS ORDERED: VANCOMYCIN 1 GM PREMIX (ADDVANTAGE) 250 ML IV SCH (13:44)
[2017-08-07] MEDS ORDERED: CHRONULAC PO PRN (13:44)
[2017-08-07] MEDS ORDERED: LEVAQUIN PREMIX IV 500 MG 500 MG/100 ML BAG IV SCH (13:44)
[2017-08-07] MEDS ORDERED: ZOFRAN INJ 4 MG VIAL IVP PRN ×2 (13:44→17:40)
[2017-08-07] MEDS: PEPCID TAB 20 MG PO SCH (13:51)
[2017-08-07 15:14] LABS: BILIRUBIN,URINE NEGATIVE (NEGATIVE); BLOOD/HEMOGLOBIN,URINE 1+ (NEGATIVE); GLUCOSE, URINE NEGATIVE (NEGATIVE); KETONES,URINE NEGATIVE (NEGATIVE); LEUKOCYTE ESTERASE ,URINE NEGATIVE (NEGATIVE); NITRITES,URINE NEGATIVE (NEGATIVE); PROTEIN,URINE 1+ (NEGATIVE); UROBILINOGEN,URINE NORMAL (NORMAL)
[2017-08-07 15:23] LABS: APPEARANCE,URINE CLEAR (CLEAR); COLOR,URINE YELLOW (YELLOW); SQUAMOUS EPITHELIAL CELL,UR NEGATIVE /HPF (NEGATIVE)
[2017-08-07 15:24] LABS: AMORPHOUS SEDIMENT,UR TRACE /HPF (NEGATIVE); BACTERIA,URINE TRACE /HPF (NEGATIVE); HYALINE CASTS, URINE RARE /LPF (NEGATIVE); MUCUS,URINE FEW /HPF (NEGATIVE)
[2017-08-07] MEDS: ANTIVERT TAB 25 MG PO SCH (21:07)
[2017-08-07] MEDS: COREG TAB 6.25 MG PO SCH (21:07)
[2017-08-07] MEDS: NORCO 5/325 MG TAB PO PRN (21:08)
[2017-08-07] MEDS: CATAPRES TAB 0.1 MG PO SCH (21:08)
[2017-08-07] MEDS: PROTONIX INJ 40 MG VIAL IVP SCH (21:09)
[2017-08-07] MEDS: VANCOMYCIN 1 GM PREMIX (ADDVANTAGE) 250 ML IV SCH (21:09)
[2017-08-07 22:40] VITALS: BMI 21.9
[2017-08-08] MEDS ORDERED: ZESTRIL TAB 20 MG ONE (07:04)
[2017-08-08] MEDS: CELEXA PO SCH (07:58)
[2017-08-08] MEDS: LOVENOX INJ 40 MG SYR SC SCH (07:59)
[2017-08-08] MEDS: COREG TAB 6.25 MG PO SCH ×2 (07:59→20:36)
[2017-08-08] MEDS: PROTONIX INJ 40 MG VIAL IVP SCH ×2 (08:00→20:36)
[2017-08-08] MEDS: ZESTRIL TAB 20 MG PO SCH (08:00)
--- NOTE | 2017-08-08 09:33 | PCM.PROG ---
Progress Note - Progress Note for Day of Date: 08/08/17 - Subjective Subjective: she is doing well. she has some issues with pain during walking. It is expected with her being post surgical. will follow her up as needed. regular dressing changes. staple removal at 3 weeks. XR at 3 weeks. - Past Medical Family Social History Allergies: Allergies cephalexin [From Keflex] Adverse Reaction (Verified 07/28/17 19:58) morphine Adverse Reaction (Verified 07/28/17 19:58) sertraline [From Zoloft] Adverse Reaction (Verified 07/28/17 19:58) - Vital Signs and I&O's Vital Signs: Temperature 97.6 F Pulse Rate [Right Brachial] 77 Respiratory Rate 20 Blood Pressure [Left Arm] 147/65 Blood Pressure [Right Arm] 190/80 Blood Pressure [Standing] 145/70 Blood Pressure [Sitting] 149/65 Blood Pressure [Lying] 171/74 Blood Pressure 185/78 O2 Sat by Pulse Oximetry 96 Intake and Output: Intake & Output 08/05/17 08/06/17 08/07/17 08/08/17 11:59 11:59 11:59 11:59 Intake Total 360 Output Total 1125 Balance -765 - Physical Exam Speech Pattern: Clear, Appropriate - Laboratory and Diagnostics Labs: Laboratory Specimen Type Catherized urine 08/07/17 15:08 Urine Color Yellow (YELLOW) 08/07/17 15:08 Urine Appearance Clear (CLEAR) 08/07/17 15:08 Urine pH 6.0 (5.0 - 8.0) 08/07/17 15:08 Ur Specific [place] 1.010 (1.000-1.030) 08/07/17 15:08 Urine Protein 1+ (NEGATIVE) 08/07/17 15:08 Urine Glucose (UA) Negative (NEGATIVE) 08/07/17 15:08 Urine Ketones Negative (NEGATIVE) 08/07/17 15:08 Urine Occult Blood 1+ (NEGATIVE) 08/07/17 15:08 Urine Nitrite Negative (NEGATIVE) 08/07/17 15:08 Urine Bilirubin Negative (NEGATIVE) 08/07/17 15:08 Urine Urobilinogen Normal (NORMAL) 08/07/17 15:08 Ur Leukocyte Esterase Negative (NEGATIVE) 08/07/17 15:08 Urine RBC 3-5 /HPF (NEGATIVE) 08/07/17 15:08 Urine WBC 0-1 /HPF (NEGATIVE) 08/07/17 15:08 Ur Squamous Epith Cells Negative /HPF (NEGATIVE) 08/07/17 15:08 Amorphous Sediment Trace /HPF (NEGATIVE) 08/07/17 15:08 Urine Bacteria Trace /HPF (NEGATIVE) 08/07/17 15:08 Hyaline Casts Rare /LPF (NEGATIVE) 08/07/17 15:08 Urine Mucus Few /HPF (NEGATIVE) 08/07/17 15:08 Ur Culture Indicated? No/not indicated 08/07/17 15:08 - Plan (1) Periprosthetic fracture around internal prosthetic right hip joint Status: Acute Plan: WBAT. PT as advised. staple removal at 3 weeks. XR at 3 weeks post surgery. FU in office at 3 weeks.
--- NOTE | 2017-08-08 10:56 | DR.UPDATE ---
H&P Update History and Physical Update: 'S H&P WAS COMPLETED ON 07/28/17. SINCE THEN, SHE IS STATUS POST ORIF OF THE RIGHT FEMUR. PATIENT HAS BEEN CHANGED TO SWINGBED STATUS AND IS RECEIVING PHYSICAL THERAPY AND OCCUPATIONAL THERAPY. WE WILL CONTINUE TO TREAT PATIENT FOR A UTI THAT GREW [place] AND CONTINUE WOUND CARE. Changes noted: NO Yes with the following:
[2017-08-08] MEDS: CATAPRES TAB 0.1 MG PO SCH (20:36)
[2017-08-08] MEDS: ANTIVERT TAB 25 MG PO SCH (20:36)
[2017-08-09 08:11] LABS: CREATININE 1.28 mg/dL (0.55-1.02); VANCOMYCIN,TROUGH 9.4 ug/mL (15-20)
[2017-08-09] MEDS ORDERED: ZESTRIL TAB 20 MG ONE (08:14)
[2017-08-09] MEDS: VANCOMYCIN 1 GM PREMIX (ADDVANTAGE) 250 ML IV SCH (08:23)
[2017-08-09] MEDS: PROTONIX INJ 40 MG VIAL IVP SCH (08:24)
[2017-08-09] MEDS: COREG TAB 6.25 MG PO SCH ×2 (08:24→20:39)
[2017-08-09] MEDS: ZESTRIL TAB 20 MG PO SCH (08:24)
[2017-08-09] MEDS: CELEXA PO SCH (08:24)
[2017-08-09] MEDS: LOVENOX INJ 40 MG SYR SC SCH (08:24)
[2017-08-09] MEDS: NORCO 5/325 MG TAB PO PRN ×3 (08:25→20:38)
[2017-08-09] MEDS: PEPCID TAB 20 MG PO SCH (13:16)
[2017-08-09] MEDS: ANTIVERT TAB 25 MG PO SCH (20:39)
[2017-08-09] MEDS: PROTONIX TAB 40 MG PO SCH (20:39)
[2017-08-09] MEDS: CATAPRES TAB 0.1 MG PO SCH (20:39)
[2017-08-10 05:49] LABS: BASOPHILS # (AUTO) 0.1 X10^3/uL (0.0-0.1); BASOPHILS % (AUTO) 0.8 % (0.2-1.0); EOSINOPHILS # (AUTO) 0.3 x10^3/uL (0.0-0.2); HEMATOCRIT 23.2 % (36.0-47.0); HEMOGLOBIN 8.2 g/dL (12.0-16.0); LYMPHOCYTES # (AUTO) 1.2 X10^3/uL (1.3-2.9); LYMPHOCYTES % (AUTO) 13.3 % (21.0-51.0); MEAN CORPUSCULAR HGB CONC 35.4 g/dL (33.0-35.0); MEAN CORPUSCULAR VOLUME 93.4 fL (80.0-100.0); MONOCYTES # (AUTO) 0.6 x10^3/uL (0.3-0.8); MONOCYTES % (AUTO) 6.4 % (0.0-13.0); NEUTROPHILS % (AUTO) 76.5 % (42.0-75.0); PLATELET COUNT 278 X10^3/uL (150.0-450.0); RED BLOOD COUNT 2.49 X10^6/uL (3.5-5.4); RED CELL DISTRIBUTION WIDTH 16.3 % (11.6-16.5); WHITE BLOOD COUNT 9.1 X10^3/uL (3.6-10.0)
[2017-08-10 05:50] LABS: ALANINE AMINOTRANSFERASE 27 Units/L (12-78); ALBUMIN 2.8 g/dL (3.4-5.0); ALKALINE PHOSPHATASE 53 Units/L (46-116); ASPARTATE AMINO TRANSFERASE 20 Units/L (15-37); BLOOD UREA NITROGEN 15 mg/dL (7-18); CALCIUM 8.3 mg/dL (8.5-10.1); CARBON DIOXIDE 26.1 mmol/L (21-32); CHLORIDE 104 mmol/L (98-107); COR CA(FOR HYPOALB) 9.3 mg/dL (8.5-10.1); CREATININE 1.29 mg/dL (0.55-1.02); SODIUM 138 mmol/L (136-145); TOTAL PROTEIN 5.5 g/dL (6.4-8.2); eGFR BLACK RACES 51 (>60); eGFR NON BLACK RACES 42 (>60)
[2017-08-10 06:32] LABS: ERYTHROCYTE SEDIMENTATION RATE 25 MM/HOUR (0-20)
[2017-08-10] MEDS ORDERED: ZESTRIL TAB 20 MG ONE (08:18)
[2017-08-10] MEDS: PROTONIX TAB 40 MG PO SCH ×2 (08:19→20:34)
[2017-08-10] MEDS: COREG TAB 6.25 MG PO SCH ×2 (08:19→20:34)
[2017-08-10] MEDS: ZESTRIL TAB 20 MG PO SCH (08:20)
[2017-08-10] MEDS: CELEXA PO SCH (08:20)
[2017-08-10] MEDS: MILK OF MAGNESIA PO SCH ×2 (08:21→21:25)
[2017-08-10] MEDS: COLACE CAP 100 MG PO SCH ×2 (08:21→20:34)
[2017-08-10] MEDS: LOVENOX INJ 40 MG SYR SC SCH (08:23)
[2017-08-10] MEDS: NORCO 5/325 MG TAB PO PRN ×2 (14:23→20:34)
[2017-08-10] MEDS: CATAPRES TAB 0.1 MG PO SCH (20:34)
[2017-08-10] MEDS: ANTIVERT TAB 25 MG PO SCH (20:34)
[2017-08-11] MEDS ORDERED: ZESTRIL TAB 20 MG ONE (08:08)
[2017-08-11] MEDS: CELEXA PO SCH (08:11)
[2017-08-11] MEDS: PROTONIX TAB 40 MG PO SCH ×2 (08:12→20:34)
[2017-08-11] MEDS: COREG TAB 6.25 MG PO SCH ×2 (08:12→20:34)
[2017-08-11] MEDS: LOVENOX INJ 40 MG SYR SC SCH (08:12)
[2017-08-11] MEDS: ZESTRIL TAB 20 MG PO SCH (08:12)
[2017-08-11] MEDS: NORCO 5/325 MG TAB PO PRN (11:22)
[2017-08-11] MEDS: PEPCID TAB 20 MG PO SCH (15:54)
[2017-08-11] MEDS: RESTORIL CAP 15 MG PO PRN (20:34)
[2017-08-11] MEDS: COLACE CAP 100 MG PO SCH (20:34)
[2017-08-11] MEDS: ANTIVERT TAB 25 MG PO SCH (20:34)
[2017-08-11] MEDS: CATAPRES TAB 0.1 MG PO SCH (20:34)
[2017-08-11] MEDS: PATIENT'S HOME MEDICATION PO SCH (20:35)
[2017-08-11] MEDS: MILK OF MAGNESIA PO SCH (20:35)
[2017-08-12 05:22] LABS: ALANINE AMINOTRANSFERASE 24 Units/L (12-78); ALBUMIN 2.7 g/dL (3.4-5.0); ALKALINE PHOSPHATASE 60 Units/L (46-116); ASPARTATE AMINO TRANSFERASE 18 Units/L (15-37); BASOPHILS # (AUTO) 0.1 X10^3/uL (0.0-0.1); BASOPHILS % (AUTO) 0.8 % (0.2-1.0); BLOOD UREA NITROGEN 11 mg/dL (7-18); CALCIUM 8.4 mg/dL (8.5-10.1); CARBON DIOXIDE 25.5 mmol/L (21-32); CHLORIDE 105 mmol/L (98-107); COR CA(FOR HYPOALB) 9.4 mg/dL (8.5-10.1); CREATININE 1.39 mg/dL (0.55-1.02); EOSINOPHILS # (AUTO) 0.3 x10^3/uL (0.0-0.2); EOSINOPHILS % (AUTO) 3.3 % (0.9-2.9); HEMATOCRIT 23.1 % (36.0-47.0); HEMOGLOBIN 8.1 g/dL (12.0-16.0); LYMPHOCYTES # (AUTO) 1.2 X10^3/uL (1.3-2.9); LYMPHOCYTES % (AUTO) 13.6 % (21.0-51.0); MEAN CORPUSCULAR HEMOGLOBIN 33.4 pg (27.0-34.0); MEAN CORPUSCULAR HGB CONC 34.9 g/dL (33.0-35.0); MEAN CORPUSCULAR VOLUME 95.9 fL (80.0-100.0); MEAN PLATELET VOLUME 7.2 fL (7.4-11.0); MONOCYTES # (AUTO) 0.6 x10^3/uL (0.3-0.8); MONOCYTES % (AUTO) 6.9 % (0.0-13.0); NEUTROPHILS # (AUTO) 6.7 x10^3/uL (2.2-4.8); NEUTROPHILS % (AUTO) 75.4 % (42.0-75.0); PLATELET COUNT 319 X10^3/uL (150.0-450.0); RED BLOOD COUNT 2.41 X10^6/uL (3.5-5.4); RED CELL DISTRIBUTION WIDTH 16.5 % (11.6-16.5); SODIUM 139 mmol/L (136-145); TOTAL PROTEIN 5.6 g/dL (6.4-8.2); WHITE BLOOD COUNT 8.9 X10^3/uL (3.6-10.0); eGFR BLACK RACES 46 (>60); eGFR NON BLACK RACES 38 (>60)
[2017-08-12 06:03] LABS: ERYTHROCYTE SEDIMENTATION RATE 22 MM/HOUR (0-20)
[2017-08-12] MEDS ORDERED: ZESTRIL TAB 20 MG ONE (08:43)
[2017-08-12] MEDS: CELEXA PO SCH (09:06)
[2017-08-12] MEDS: COREG TAB 6.25 MG PO SCH ×2 (09:06→20:31)
[2017-08-12] MEDS: PATIENT'S HOME MEDICATION PO SCH ×2 (09:07→20:34)
[2017-08-12] MEDS: ZESTRIL TAB 20 MG PO SCH (09:07)
[2017-08-12] MEDS: PROTONIX TAB 40 MG PO SCH ×2 (09:07→20:31)
[2017-08-12] MEDS: LOVENOX INJ 40 MG SYR SC SCH (09:07)
[2017-08-12] MEDS: NORCO 5/325 MG TAB PO PRN (16:57)
[2017-08-12] MEDS: CATAPRES TAB 0.1 MG PO SCH (20:31)
[2017-08-12] MEDS: ANTIVERT TAB 25 MG PO SCH (20:31)
[2017-08-12] MEDS: RESTORIL CAP 15 MG PO PRN (20:31)
[2017-08-12] MEDS: COLACE CAP 100 MG PO SCH (20:31)
[2017-08-12] MEDS: MILK OF MAGNESIA PO SCH ×2 (20:33→20:38)
[2017-08-13 05:23] LABS: BASOPHILS # (AUTO) 0.1 X10^3/uL (0.0-0.1); BASOPHILS % (AUTO) 0.7 % (0.2-1.0); EOSINOPHILS # (AUTO) 0.2 x10^3/uL (0.0-0.2); EOSINOPHILS % (AUTO) 3.1 % (0.9-2.9); HEMATOCRIT 23.8 % (36.0-47.0); HEMOGLOBIN 8.2 g/dL (12.0-16.0); LYMPHOCYTES # (AUTO) 1.3 X10^3/uL (1.3-2.9); LYMPHOCYTES % (AUTO) 16.9 % (21.0-51.0); MEAN CORPUSCULAR HEMOGLOBIN 33.3 pg (27.0-34.0); MEAN CORPUSCULAR HGB CONC 34.5 g/dL (33.0-35.0); MEAN CORPUSCULAR VOLUME 96.5 fL (80.0-100.0); MEAN PLATELET VOLUME 7.1 fL (7.4-11.0); MONOCYTES # (AUTO) 0.6 x10^3/uL (0.3-0.8); MONOCYTES % (AUTO) 7.7 % (0.0-13.0); NEUTROPHILS # (AUTO) 5.4 x10^3/uL (2.2-4.8); NEUTROPHILS % (AUTO) 71.6 % (42.0-75.0); PLATELET COUNT 328 X10^3/uL (150.0-450.0); RED BLOOD COUNT 2.46 X10^6/uL (3.5-5.4); RED CELL DISTRIBUTION WIDTH 16.4 % (11.6-16.5); WHITE BLOOD COUNT 7.5 X10^3/uL (3.6-10.0)
[2017-08-13 05:28] LABS: ALANINE AMINOTRANSFERASE 23 Units/L (12-78); ALBUMIN 2.9 g/dL (3.4-5.0); ALKALINE PHOSPHATASE 70 Units/L (46-116); ASPARTATE AMINO TRANSFERASE 19 Units/L (15-37); BLOOD UREA NITROGEN 9 mg/dL (7-18); CALCIUM 8.7 mg/dL (8.5-10.1); CARBON DIOXIDE 27.3 mmol/L (21-32); CHLORIDE 107 mmol/L (98-107); COR CA(FOR HYPOALB) 9.6 mg/dL (8.5-10.1); CREATININE 1.33 mg/dL (0.55-1.02); SODIUM 142 mmol/L (136-145); eGFR BLACK RACES 49 (>60); eGFR NON BLACK RACES 40 (>60)
[2017-08-13 06:02] LABS: ERYTHROCYTE SEDIMENTATION RATE 31 MM/HOUR (0-20)
[2017-08-13 08:14] VITALS: BP 124/59
[2017-08-13] MEDS ORDERED: ZESTRIL TAB 20 MG ONE (08:14)
[2017-08-13] MEDS ORDERED: HEMOCYTE-PLUS PO SCH (09:00)
[2017-08-13] MEDS: CELEXA PO SCH (09:06)
[2017-08-13] MEDS: PROTONIX TAB 40 MG PO SCH (09:07)
[2017-08-13] MEDS: ZESTRIL TAB 20 MG PO SCH (09:07)
[2017-08-13] MEDS: COREG TAB 6.25 MG PO SCH (09:07)
[2017-08-13] MEDS: PATIENT'S HOME MEDICATION PO SCH (09:08)
[2017-08-13] MEDS: NORCO 5/325 MG TAB PO PRN (09:10)
[2017-08-13] MEDS: LOVENOX INJ 40 MG SYR SC SCH (09:11)
--- NOTE | 2017-08-13 11:58 | PCM.PROG ---
Progress Note - Progress Note for Day of Date: 08/12/17 - Subjective Subjective: IS STATUS POST ORIF OF THE RIGHT FEMUR. SHE IS ALERT AND ORIENTED, SITTING ON THE SIDE OF THE BED ON MORNING ROUNDS. SHE CONTINUES WITH COMPLAINTS OF RIGHT HIP PAIN AT TIMES. MAINLY AFTER SHE HAS BEEN AMBULATING IN ROOM. ON EXAMINATION, LUNGS ARE NOTED CLEAR TO AUSCULTATION. ABDOMEN IS SOFT, ROUND, AND NON-TENDER WITH NORMAL BOWEL SOUNDS NOTED IN ALL QUADRANTS. DRESSING NOTED TO RIGHT HIP IS DRY AND INTACT. VITALS SIGNS THIS MORNING ARE 98.1-71-18- 94%-137/60. CBC AND CMP WERE OBTAINED. ABNORMAL LAB VALUES INCLUDE THE FOLLOWING : RBC 2.41, HGB 8.1, HCT 23.1, CREATININE 1.39, GLUCOSE 107, CALCIUM 8.4, CRP 5.40, TOTAL PROTIEN 5.6, ALBUMIN 2.7, ESR 31. STAFF REPORTS THAT PATIENT HAS BEEN REFUSING TO WORK WITH PHYSICAL THERAPY. PATIENT REQUEST TO BE DISCHARGED HOME WITH DAUGHTER. WE WILL SPEAK WITH CASE MANAGEMENT REGARDING HOME HEALTH AND PHYSICAL THERAPY AT HOME. WE WILL START HEMOCYTE PLUS DAILY FOR LOW HGB. OTHERWISE, WE WILL CONTINUE WITH CURRENT PLAN OF CARE AND FOLLOW UP WITH PATIENT IN AM. - Past Medical Family Social History Past Med/Fam/Surg Hx: No changes since H&P Allergies: Allergies cephalexin [From Keflex] Adverse Reaction (Verified 07/28/17 19:58) morphine Adverse Reaction (Verified 07/28/17 19:58) sertraline [From Zoloft] Adverse Reaction (Verified 07/28/17 19:58) - Review of Systems ROS: No change since H&P - Vital Signs and I&O's Vital Signs: Temperature 98.1 F Pulse Rate [Left Brachial] 73 Pulse Rate [Right Brachial] 71 Pulse Rate 70 Respiratory Rate 20 Blood Pressure [Left Arm] 124/59 Blood Pressure [Right Arm] 135/64 Blood Pressure [Standing] 145/70 Blood Pressure [Sitting] 149/65 Blood Pressure [Lying] 171/74 Blood Pressure 185/78 O2 Sat by Pulse Oximetry 96 Intake and Output: Intake & Output 08/10/17 08/11/17 08/12/17 08/13/17 11:59 11:59 11:59 11:59 Intake Total 680 516 9910 580 Output Total 600 1000 500 150 Balance -240 -200 950 430 - Physical Exam Oriented: Normal Eyes: Normal Ear: Normal Nose: Normal Throat: Normal Respiratory: Normal Cardiovascular: Normal : Normal Auscultation: Bowel Sounds: Normal Palpation: Normal Tenderness: Normal Skin: Normal Musculoskeletal: Right, Hip, Tender Psychiatric: Normal Mood Description: Calm Affect: Normal Speech Pattern: Clear, Appropriate - Laboratory and Diagnostics Result Diagrams: 08/13/17 03:45 08/13/17 03:45 Labs: Laboratory WBC 7.5 X10^3/uL (3.6-10.0) 08/13/17 03:45 RBC 2.46 X10^6/uL (3.5-5.4) L 08/13/17 03:45 Hgb 8.2 g/dL (12.0-16.0) L 08/13/17 03:45 Hct 23.8 % (36.0-47.0) L 08/13/17 03:45 MCV 96.5 fL (80.0-100.0) 08/13/17 03:45 MCH 33.3 pg (27.0-34.0) 08/13/17 03:45 MCHC 34.5 g/dL (33.0-35.0) 08/13/17 03:45 RDW 16.4 % (11.6-16.5) 08/13/17 03:45 Plt Count 328 X10^3/uL (150.0-450.0) 08/13/17 03:45 MPV 7.1 fL (7.4-11.0) L 08/13/17 03:45 Neut % 71.6 % (42.0-75.0) 08/13/17 03:45 Lymph % 16.9 % (21.0-51.0) L 08/13/17 03:45 [place] % 7.7 % (0.0-13.0) 08/13/17 03:45 Eos % 3.1 % (0.9-2.9) H 08/13/17 03:45 Baso % 0.7 % (0.2-1.0) 08/13/17 03:45 Neut # 5.4 x10^3/uL (2.2-4.8) H 08/13/17 03:45 Lymph # 1.3 X10^3/uL (1.3-2.9) 08/13/17 03:45 [place] # 0.6 x10^3/uL (0.3-0.8) 08/13/17 03:45 Eos # 0.2 x10^3/uL (0.0-0.2) 08/13/17 03:45 Baso # 0.1 X10^3/uL (0.0-0.1) 08/13/17 03:45 Absolute Nucleated RBC 0.1 /100WBC 08/13/17 03:45 ESR 31 MM/HOUR (0-20) H 08/13/17 03:45 Sodium 142 mmol/L (136-145) 08/13/17 03:45 Corrected Sodium TNP 08/13/17 03:45 Potassium 4.5 mmol/L (3.5-5.1) 08/13/17 03:45 Chloride 107 mmol/L (98-107) 08/13/17 03:45 Carbon Dioxide 27.3 mmol/L (21-32) 08/13/17 03:45 BUN 9 mg/dL (7-18) 08/13/17 03:45 Creatinine 1.33 mg/dL (0.55-1.02) H 08/13/17 03:45 Est GFR (MDRD) Af Amer 49 (>60) L 08/13/17 03:45 Est GFR (MDRD) Non-Af 40 (>60) L 08/13/17 03:45 Glucose 104 mg/dL (65-99) H 08/13/17 03:45 Calcium 8.7 mg/dL (8.5-10.1) 08/13/17 03:45 Corrected Calcium 9.6 mg/dL (8.5-10.1) 08/13/17 03:45 Total Bilirubin 0.50 mg/dL (0.2-1.0) 08/13/17 03:45 AST 19 Units/L (15-37) 08/13/17 03:45 ALT 23 Units/L (12-78) 08/13/17 03:45 Alkaline Phosphatase 70 Units/L (46-116) 08/13/17 03:45 C-Reactive Protein 6.30 mg/L (0-3.0) H 08/13/17 03:45 Total Protein 6.0 g/dL (6.4-8.2) L 08/13/17 03:45 Albumin 2.9 g/dL (3.4-5.0) L 08/13/17 03:45 Globulin 3.1 g/dL (2.5-4.5) 08/13/17 03:45 Albumin/Globulin Ratio 0.9 Ratio (1.1-2.1) L 08/13/17 03:45 Specimen Type Catherized urine 08/07/17 15:08 Urine Color Yellow (YELLOW) 08/07/17 15:08 Urine Appearance Clear (CLEAR) 08/07/17 15:08 Urine pH 6.0 (5.0 - 8.0) 08/07/17 15:08 Ur Specific [place] 1.010 (1.000-1.030) 08/07/17 15:08 Urine Protein 1+ (NEGATIVE) 08/07/17 15:08 Urine Glucose (UA) Negative (NEGATIVE) 08/07/17 15:08 Urine Ketones Negative (NEGATIVE) 08/07/17 15:08 Urine Occult Blood 1+ (NEGATIVE) 08/07/17 15:08 Urine Nitrite Negative (NEGATIVE) 08/07/17 15:08 Urine Bilirubin Negative (NEGATIVE) 08/07/17 15:08 Urine Urobilinogen Normal (NORMAL) 08/07/17 15:08 Ur Leukocyte Esterase Negative (NEGATIVE) 08/07/17 15:08 Urine RBC 3-5 /HPF (NEGATIVE) 08/07/17 15:08 Urine WBC 0-1 /HPF (NEGATIVE) 08/07/17 15:08 Ur Squamous Epith Cells Negative /HPF (NEGATIVE) 08/07/17 15:08 Amorphous Sediment Trace /HPF (NEGATIVE) 08/07/17 15:08 Urine Bacteria Trace /HPF (NEGATIVE) 08/07/17 15:08 Hyaline Casts Rare /LPF (NEGATIVE) 08/07/17 15:08 Urine Mucus Few /HPF (NEGATIVE) 08/07/17 15:08 Ur Culture Indicated? No/not indicated 08/07/17 15:08 Vancomycin Trough 9.4 ug/mL (15-20) L 08/09/17 07:25 - Plan (1) Periprosthetic fracture around internal prosthetic right hip joint Status: Acute Plan: DRESSING CHANGE Q3DAYS, CONTINUE TO MONITOR
== END 2017-08-13 15:50 | disposition home health service (06) | DRG 949 ==
LOC: MED/SURG 13:04
PROVIDERS: ADMIT Internal Medicine; ATTEND Internal Medicine
DX: Z51.89 Encounter for other specified aftercare (principal); M97.01XA Periprosthetic fracture around internal prosthetic right hip joint, initial encounter; W18.39XA Other fall on same level, initial encounter; R26.89 Other abnormalities of gait and mobility; N30.01 Acute cystitis with hematuria; R42 Dizziness and giddiness; F33.1 Major depressive disorder, recurrent, moderate; F41.8 Other specified anxiety disorders; M13.89 Other specified arthritis, multiple sites; I10 Essential (primary) hypertension; K21.9 Gastro-esophageal reflux disease without esophagitis; B96.4 Proteus (mirabilis) (morganii) as the cause of diseases classified elsewhere; B96.29 Other Escherichia coli [E. coli] as the cause of diseases classified elsewhere
CPT/HCPCS: 36415; 80053; 80202; 81001; 82565; 85025; 85652; 86140; 97535; A4216; A4222; C9113; J1650; J2405; J3370

== ENCOUNTER → 2017-08-29 | Outpatient (CLI) | payer OTHER, MEDICARE ==
[2017-08-13 08:14] VITALS: BP 124/59
--- NOTE | 2017-08-31 17:02 | RAD ---
HISTORY: Right hip pain Study: Right hip AP, lateral, AP pelvis Comparison: 07/31/2017 Findings: The patient is status post right hip arthroplasty. The prosthetic femoral head is in good position wi thin the prosthetic acetabulum. The femoral prosthesis has a long intramedullary gabbi affixed by multi ple wires. The appearance of the hip is unchanged from the prior examination. The pelvic bones are in tact. IMPRESSION: Postsurgical changes as above, no acute findings Reported By:
--- NOTE | 2017-08-31 17:06 | RAD ---
HISTORY: Postop right hip fracture Study: Right femur AP and lateral Comparison: 08/05/2017 Findings: The patient is status post right total hip arthroplasty position and alignment is anatomic. The patie nt is status post open reduction and internal fixation of a periprosthetic femoral shaft fracture. Po sition alignment is anatomic. The remainder the distal femur is intact. IMPRESSION: As above Reported By:
--- NOTE | 2017-08-31 17:48 | RAD ---
HISTORY: Knee pain Study: 3 views of the right knee Comparison: None Findings: No acute fractures or dislocations. Joint spaces are maintained. No knee joint effusion. Soft tissues are unremarkable. IMPRESSION: 1. No acute abnormality of the right knee. Reported By:
== END ==
LOC: RAD 09:38
PROVIDERS: ATTEND Orthopaedic Surgery
DX: Z47.89 Encounter for other orthopedic aftercare (principal)
CPT/HCPCS: 73501; 73552; 73564

== ENCOUNTER 2017-09-09 18:09 | Inpatient (IN) | payer OTHER, MEDICARE ==
--- NOTE | 2017-09-09 18:18 | DR.GENAD ---
HPI - PCP Primary Care Physician: [email or web address] - HPI Comment HPI Comment: HISTORY BELOW. - Complaint/Symptoms Chief Complaint Doctors Comments: RIGHT HIP NOT RESPONDING TO MEDS AT HOME. WORSE TONIGHT. Chief Complaint:: "im having pain after my right hip surgery and i feel depressed because im living by myself; - Nurses notes reviewed Nurses Notes Review: Yes - Source History Provided: Patient - Mode of Arrival Mode of Arrival: EMS - Timing Onset of Chief Complaint: 09/09/17 Came on: Suddenly - Duration Duration: Constant Duration: Days - Severity Severity: Moderate PMH - PMH Past Medical History: Yes Past Medical History: Anxiety, Arthritis, Depression, Dyslipidemia, GERD, Hypertension Past Surgical History: Yes Surgical History: Appendectomy, Cholecystectomy, Joint Replacement Past Surgical History Comment: right hip - Family History History of Family Medical Conditions: Yes Family Medical History: Heart Failure - Social History Does patient currently use any type of tobacco product: No Have you used tobacco products in the last 12 months: No Type of Tobacco Use: None Does any household member use tobacco: No Alcohol Use: None Do you use any recreational Drugs:: No Lives With: Alone Lives Where: Home - infectious screening In the last 2 months have you had wt loss of >10#?: NO Have you had fever, night sweats or hemotysis?: No Have you traveled outside the country in the last 6 months?: No Isolation: Standard ROS - Review of Systems Constitutional: No Symptoms Reported Eyes: No Symptoms Reported ENTM: No Symptoms Reported Respiratoy: No Symptoms Reported Cardiovascular: No Symptoms Reported Gastrointestinal/Abdominal: No Symptoms Reported Genitourinary: No Symptoms Reported Neurological: No Symptoms Reported Musculoskeletal: Back Pain, Muscle Pain Integumentary: No Symptoms Reported Hematologic/Lymphatic: No Symptoms Reported Endocrine: No Symptoms Reported All Other Systems: Reviewed and Negative PE - Vital Signs Vitals: Temperature 98 F Pulse Rate [Left Radial] 74 Pulse Rate 75 Respiratory Rate 18 Blood Pressure [Left Arm] 140/64 Blood Pressure [Right Arm] 135/64 Blood Pressure [Standing] 145/70 Blood Pressure [Sitting] 149/65 Blood Pressure [Lying] 171/74 Blood Pressure 139/65 O2 Sat by Pulse Oximetry 100 - General Limitations: No Limitations General Appearance: Alert - Head Head Exam: Normal Inspection - Eyes Eye exam: Normal Appearance - ENT ENT Exam: Normal External Ear Exam External Ear Exam: Normal External Inspection TM/Canal Exam: Bilateral Normal Nose Exam: Normal Nose Exam Mouth Exam: Normal Inspection Throat Exam: Normal Inspection - Neck Neck Exam: Trachea Midline - Chest Chest Inspection: Symmetric Chest Wall Rise - Respiratory Respiratory Exam: Normal Lung Sounds Bilat Respiratory Exam: Bilateral Rhonchi, Lower Rhonchi - Cardiovascular Cardiovascular Exam: Regular Rate, Normal Rhythm, Normal Heart Sounds - Abdominal Exam Abdominal Exam: Normal Bowel Sounds, Soft. negative: Tenderness - Extremities Extremities Exam: Tenderness (RIGHT HIP. ) - Back Back Exam: Paraspinal Tenderness (LOWER BACK.) - Neurologic Neurological Exam: Alert, Oriented X3 - Psychiatric Psychiatric Exam: Anxious - Skin Skin Exam: Erythema MDM - Differential Diagnosis Differential Diagnosis: INTRACTABLE, RIGHT HIP PAIN Course - Treatment Treatment: SEE ORDERS. IV PAIN MED IN ED. - Education/Counseling Education/Counseling: Patient, Education Educated On: Diagnosis ROR - Labs Reviewed Laboratory Results Reviewed?: Yes Result Diagrams: 09/10/17 05:38 09/10/17 05:38 Laboratory: WBC 6.7 X10^3/uL (3.6-10.0) 09/09/17 18:26 RBC 3.44 X10^6/uL (3.5-5.4) L 09/09/17 18:26 Hgb 11.5 g/dL (12.0-16.0) L 09/09/17 18:26 Hct 33.7 % (36.0-47.0) L 09/09/17 18:26 MCV 98.0 fL (80.0-100.0) 09/09/17 18:26 MCH 33.5 pg (27.0-34.0) 09/09/17 18:26 MCHC 34.2 g/dL (33.0-35.0) 09/09/17 18:26 RDW 15.0 % (11.6-16.5) 09/09/17 18:26 Plt Count 247 X10^3/uL (150.0-450.0) 09/09/17 18:26 MPV 7.4 fL (7.4-11.0) 09/09/17 18:26 Neut % 62.0 % (42.0-75.0) 09/09/17 18:26 Lymph % 26.2 % (21.0-51.0) 09/09/17 18:26 [place] % 7.9 % (0.0-13.0) 09/09/17 18:26 Eos % 2.6 % (0.9-2.9) 09/09/17 18:26 Baso % 1.3 % (0.2-1.0) H 09/09/17 18:26 Neut # 4.1 x10^3/uL (2.2-4.8) 09/09/17 18: Lymph # 1.7 X10^3/uL (1.3-2.9) 09/09/17 18:26 [place] # 0.5 x10^3/uL (0.3-0.8) 09/09/17 18:26 Eos # 0.2 x10^3/uL (0.0-0.2) 09/09/17 18:26 Baso # 0.1 X10^3/uL (0.0-0.1) 09/09/17 18:26 Absolute Nucleated RBC 0.1 /100WBC 09/09/17 18:26 Sodium 135 mmol/L (136-145) L 09/09/17 18:26 Corrected Sodium TNP 09/09/17 18:26 Potassium 4.6 mmol/L (3.5-5.1) 09/09/17 18:26 Chloride 101 mmol/L (98-107) 09/09/17 18:26 Carbon Dioxide 24.1 mmol/L (21-32) 09/09/17 18:26 BUN 13 mg/dL (7-18) 09/09/17 18:26 Creatinine 1.37 mg/dL (0.55-1.02) H 09/09/17 18:26 Est GFR (MDRD) Af Amer 47 (>60) L 09/09/17 18:26 Est GFR (MDRD) Non-Af 39 (>60) L 09/09/17 18:26 Glucose 104 mg/dL (65-99) H 09/09/17 18:26 Calcium 9.0 mg/dL (8.5-10.1) 09/09/17 18:26 Corrected Calcium TNP 09/09/17 18:26 Total Bilirubin 0.50 mg/dL (0.2-1.0) 09/09/17 18:26 AST 18 Units/L (15-37) 09/09/17 18:26 ALT 15 Units/L (12-78) 09/09/17 18:26 Alkaline Phosphatase 114 Units/L (46-116) 09/09/17 18:26 Creatine Kinase 25 Units/L (26-192) L 09/09/17 18:26 CK-MB (CK-2) < 1.0 ng/mL (0-4.0) 09/09/17 18:26 CK/CKMB % Calc 4.0 % (<4) 09/09/17 18:26 Troponin I < 0.02 ng/mL (0-1.5) 09/09/17 18:26 Total Protein 7.3 g/dL (6.4-8.2) 09/09/17 18:26 Albumin 3.4 g/dL (3.4-5.0) 09/09/17 18:26 Globulin 3.9 g/dL (2.5-4.5) 09/09/17 18:26 Albumin/Globulin Ratio 0.9 Ratio (1.1-2.1) L 09/09/17 18:26 - XRAY XRAY Findings: REPORT DISCUSS WITH PATIENT. - EKG Rhythm: NSR (EKG NOTED) - Diagnosis Discharge Problem: Right hip pain, Intractable pain, Arthritis - Discharge Plan Disposition: ADMITTED INPATIENT Condition: Stable - Follow ups/Referrals - Instructions
[2017-09-09] MEDS ORDERED: ZOFRAN INJ 4 MG VIAL IVP ONE (18:31)
[2017-09-09] MEDS ORDERED: DEMEROL INJ IVP ONE (18:32)
[2017-09-09 18:46] LABS: BASOPHILS # (AUTO) 0.1 X10^3/uL (0.0-0.1); BASOPHILS % (AUTO) 1.3 % (0.2-1.0); EOSINOPHILS # (AUTO) 0.2 x10^3/uL (0.0-0.2); EOSINOPHILS % (AUTO) 2.6 % (0.9-2.9); HEMATOCRIT 33.7 % (36.0-47.0); HEMOGLOBIN 11.5 g/dL (12.0-16.0); LYMPHOCYTES # (AUTO) 1.7 X10^3/uL (1.3-2.9); LYMPHOCYTES % (AUTO) 26.2 % (21.0-51.0); MEAN CORPUSCULAR HEMOGLOBIN 33.5 pg (27.0-34.0); MEAN CORPUSCULAR HGB CONC 34.2 g/dL (33.0-35.0); MEAN PLATELET VOLUME 7.4 fL (7.4-11.0); MONOCYTES # (AUTO) 0.5 x10^3/uL (0.3-0.8); MONOCYTES % (AUTO) 7.9 % (0.0-13.0); NEUTROPHILS # (AUTO) 4.1 x10^3/uL (2.2-4.8); PLATELET COUNT 247 X10^3/uL (150.0-450.0); RED BLOOD COUNT 3.44 X10^6/uL (3.5-5.4); WHITE BLOOD COUNT 6.7 X10^3/uL (3.6-10.0)
[2017-09-09] MEDS ORDERED: ZOFRAN INJ 4 MG VIAL ONE (18:53)
--- NOTE | 2017-09-09 18:54 | RAD ---
HISTORY: Postop right hip surgery Study: Chest AP portable Comparison: 08/05/2017 Findings: The heart is enlarged. No congestive heart failure is noted. The aorta is calcified. The lung ann are clear. The bony thorax is unremarkable with the exception of severe glenohumeral degenerative kj nt disease bilaterally. IMPRESSION: Cardiomegaly without congestive heart failure Lungs clear Reported By:
[2017-09-09] MEDS ORDERED: DEMEROL INJ ONE (18:55)
[2017-09-09 18:59] LABS: BLOOD UREA NITROGEN 13 mg/dL (7-18); CARBON DIOXIDE 24.1 mmol/L (21-32); CHLORIDE 101 mmol/L (98-107); CREATININE 1.37 mg/dL (0.55-1.02); SODIUM 135 mmol/L (136-145); TROPONIN I < 0.02 ng/mL (0-1.5); eGFR BLACK RACES 47 (>60); eGFR NON BLACK RACES 39 (>60)
[2017-09-09 19:02] LABS: ALANINE AMINOTRANSFERASE 15 Units/L (12-78); ALBUMIN 3.4 g/dL (3.4-5.0); ALKALINE PHOSPHATASE 114 Units/L (46-116); ASPARTATE AMINO TRANSFERASE 18 Units/L (15-37); CREATINE KINASE 25 Units/L (26-192); CREATINE KINASE MB < 1.0 ng/mL (0-4.0); TOTAL PROTEIN 7.3 g/dL (6.4-8.2)
--- NOTE | 2017-09-09 19:50 | RAD ---
HISTORY: Right hip pain Study: Right hip AP and lateral Comparison: 08/29/2017 Findings: The patient is status post right hip arthroplasty. The patient is status post open reduction and inte rnal fixation of a periprosthetic femoral shaft fracture with a plate and multiple screws. Position a nd alignment is unchanged from the prior examination. The previously noted marco are no longer pres ent. No soft tissue gas is identified. No acute fractures are identified. IMPRESSION: Postsurgical changes as above No acute findings Reported By:
[2017-09-09] MEDS ORDERED: ZOFRAN INJ 4 MG VIAL IVP PRN (20:39)
[2017-09-09] MEDS ORDERED: DEMEROL INJ IVP PRN (20:39)
[2017-09-09] MEDS ORDERED: BACITRACIN ZINC TOP PRN (20:41)
[2017-09-09] MEDS ORDERED: BENADRYL CAP/TAB 25 MG PO PRN (20:41)
[2017-09-09] MEDS: CATAPRES TAB 0.1 MG PO SCH (21:29)
[2017-09-09] MEDS: ANTIVERT TAB 25 MG PO SCH (21:30)
[2017-09-09] MEDS: COREG TAB 6.25 MG PO SCH (21:30)
[2017-09-10 00:33] VITALS: BMI 22.3
[2017-09-10 06:09] LABS: ALANINE AMINOTRANSFERASE 14 Units/L (12-78); ALBUMIN 3.1 g/dL (3.4-5.0); ALKALINE PHOSPHATASE 99 Units/L (46-116); ASPARTATE AMINO TRANSFERASE 19 Units/L (15-37); BLOOD UREA NITROGEN 11 mg/dL (7-18); CARBON DIOXIDE 26.4 mmol/L (21-32); CHLORIDE 103 mmol/L (98-107); COR CA(FOR HYPOALB) 9.7 mg/dL (8.5-10.1); CREATININE 1.39 mg/dL (0.55-1.02); SODIUM 136 mmol/L (136-145); TOTAL PROTEIN 6.7 g/dL (6.4-8.2); eGFR BLACK RACES 46 (>60); eGFR NON BLACK RACES 38 (>60)
[2017-09-10 06:21] LABS: BASOPHILS % (AUTO) 0.8 % (0.2-1.0); EOSINOPHILS # (AUTO) 0.2 x10^3/uL (0.0-0.2); EOSINOPHILS % (AUTO) 3.8 % (0.9-2.9); HEMOGLOBIN 10.4 g/dL (12.0-16.0); LYMPHOCYTES # (AUTO) 1.3 X10^3/uL (1.3-2.9); LYMPHOCYTES % (AUTO) 25.3 % (21.0-51.0); MEAN CORPUSCULAR HEMOGLOBIN 33.7 pg (27.0-34.0); MEAN CORPUSCULAR HGB CONC 34.7 g/dL (33.0-35.0); MEAN CORPUSCULAR VOLUME 97.3 fL (80.0-100.0); MEAN PLATELET VOLUME 7.7 fL (7.4-11.0); MONOCYTES # (AUTO) 0.4 x10^3/uL (0.3-0.8); MONOCYTES % (AUTO) 8.1 % (0.0-13.0); NEUTROPHILS # (AUTO) 3.3 x10^3/uL (2.2-4.8); PLATELET COUNT 213 X10^3/uL (150.0-450.0); RED BLOOD COUNT 3.09 X10^6/uL (3.5-5.4); RED CELL DISTRIBUTION WIDTH 14.8 % (11.6-16.5); WHITE BLOOD COUNT 5.3 X10^3/uL (3.6-10.0)
[2017-09-10] MEDS: NS 1000 ML 1,000 ML IV SCH ×3 (06:33→18:23)
[2017-09-10] MEDS ORDERED: ZESTRIL TAB 20 MG ONE (08:04)
[2017-09-10 08:13] LABS: BILIRUBIN,URINE NEGATIVE (NEGATIVE); BLOOD/HEMOGLOBIN,URINE NEGATIVE (NEGATIVE); GLUCOSE, URINE NEGATIVE (NEGATIVE); KETONES,URINE NEGATIVE (NEGATIVE); LEUKOCYTE ESTERASE ,URINE 3+ (NEGATIVE); NITRITES,URINE NEGATIVE (NEGATIVE); PROTEIN,URINE NEGATIVE (NEGATIVE); UROBILINOGEN,URINE NORMAL (NORMAL)
[2017-09-10] MEDS: COREG TAB 6.25 MG PO SCH ×2 (08:19→20:38)
[2017-09-10] MEDS: XARELTO PO SCH (08:19)
[2017-09-10] MEDS: SINGULAIR TAB 10 MG PO SCH (08:19)
[2017-09-10] MEDS: PEPCID TAB 20 MG PO SCH (08:19)
[2017-09-10] MEDS: HEMOCYTE-PLUS PO SCH (08:19)
[2017-09-10] MEDS: CELEXA PO SCH (08:19)
[2017-09-10 08:20] LABS: APPEARANCE,URINE SLIGHTLY HAZY (CLEAR); BACTERIA,URINE TRACE /HPF (NEGATIVE); COLOR,URINE YELLOW (YELLOW); RBC,URINE 0-3 /HPF (NEGATIVE); SQUAMOUS EPITHELIAL CELL,UR FEW /HPF (NEGATIVE)
[2017-09-10] MEDS: ZESTRIL TAB 20 MG PO SCH (08:20)
[2017-09-10] MEDS ORDERED: PATIENT'S HOME MEDICATION (Lisinopril [Lisinopril] 1 TAB) PO SCH (09:00)
[2017-09-10] MEDS ORDERED: CITALOPRAM HYDROBROMIDE PO SCH (09:00)
[2017-09-10] MEDS: NORCO 5/325 MG TAB PO PRN (13:39)
[2017-09-10] MEDS: CATAPRES TAB 0.1 MG PO SCH (20:38)
[2017-09-10] MEDS: ANTIVERT TAB 25 MG PO SCH (20:38)
[2017-09-11] MEDS: NS 1000 ML 1,000 ML IV SCH ×2 (06:12→06:34)
[2017-09-11 06:20] LABS: BASOPHILS # (AUTO) 0.1 X10^3/uL (0.0-0.1); BASOPHILS % (AUTO) 1.1 % (0.2-1.0); EOSINOPHILS # (AUTO) 0.2 x10^3/uL (0.0-0.2); EOSINOPHILS % (AUTO) 3.7 % (0.9-2.9); HEMOGLOBIN 10.3 g/dL (12.0-16.0); LYMPHOCYTES # (AUTO) 1.6 X10^3/uL (1.3-2.9); LYMPHOCYTES % (AUTO) 32.5 % (21.0-51.0); MEAN CORPUSCULAR HEMOGLOBIN 33.7 pg (27.0-34.0); MEAN CORPUSCULAR HGB CONC 34.4 g/dL (33.0-35.0); MEAN CORPUSCULAR VOLUME 97.9 fL (80.0-100.0); MEAN PLATELET VOLUME 7.8 fL (7.4-11.0); MONOCYTES # (AUTO) 0.4 x10^3/uL (0.3-0.8); NEUTROPHILS # (AUTO) 2.6 x10^3/uL (2.2-4.8); NEUTROPHILS % (AUTO) 54.7 % (42.0-75.0); PLATELET COUNT 211 X10^3/uL (150.0-450.0); RED BLOOD COUNT 3.06 X10^6/uL (3.5-5.4); RED CELL DISTRIBUTION WIDTH 14.9 % (11.6-16.5); WHITE BLOOD COUNT 4.8 X10^3/uL (3.6-10.0)
[2017-09-11 06:40] LABS: ALANINE AMINOTRANSFERASE 11 Units/L (12-78); ALBUMIN 2.9 g/dL (3.4-5.0); ALKALINE PHOSPHATASE 100 Units/L (46-116); ASPARTATE AMINO TRANSFERASE 15 Units/L (15-37); BLOOD UREA NITROGEN 9 mg/dL (7-18); CALCIUM 8.4 mg/dL (8.5-10.1); CHLORIDE 108 mmol/L (98-107); COR CA(FOR HYPOALB) 9.3 mg/dL (8.5-10.1); CREATININE 1.31 mg/dL (0.55-1.02); SODIUM 139 mmol/L (136-145); TOTAL PROTEIN 6.3 g/dL (6.4-8.2); eGFR BLACK RACES 50 (>60); eGFR NON BLACK RACES 41 (>60)
[2017-09-11] MEDS ORDERED: ZESTRIL TAB 20 MG ONE (09:38)
[2017-09-11] MEDS: CELEXA PO SCH (10:24)
[2017-09-11] MEDS: COREG TAB 6.25 MG PO SCH ×2 (10:25→21:25)
[2017-09-11] MEDS: SINGULAIR TAB 10 MG PO SCH (10:25)
[2017-09-11] MEDS: XARELTO PO SCH (10:25)
[2017-09-11] MEDS: HEMOCYTE-PLUS PO SCH (10:26)
[2017-09-11] MEDS: PEPCID TAB 20 MG PO SCH (10:26)
[2017-09-11] MEDS: ZESTRIL TAB 20 MG PO SCH (10:27)
--- NOTE | 2017-09-11 20:20 | DR.H&P ---
H&P - History & Physical for Day of: H&P Date: 09/09/17 - Chief Complaint Chief Complaint: RIGHT HIP PAIN - Allergies Allergies/Adverse Reactions: Allergies Allergy/AdvReac Type Severity Reaction Status Date / Time cephalexin [From Keflex] AdvReac Verified 07/28/17 19:58 morphine AdvReac Verified 07/28/17 19:58 sertraline [From Zoloft] AdvReac Verified 07/28/17 19:58 - History of Present Illness History of Present Illness: is a 87 year old patient of ours who presented to the emergency room via EMS with reports of right hip pain. Patient is status post right hip surgery 4 weeks ago after falling at home and fracturing her hip. Patient reports that the pain medicine that she usually takes at home is not controlling her pain. Patient also reports being severely depressed and unable to care for herself at home due to living alone while family is out of town. Patient reports that pain has been present for several days, but is worse today. On examination, lungs are noted with rhonchi bilaterally to auscultation. Abdomen is round, soft, and non-tender with normal bowel sounds in all quadrants. Right hip is noted with a surgical scar that is healing with no signs of infection noted. Tenderness is noted upon palpation of right hip. On arrival to the ER, vital signs were 98.0-75-18-98%-139/65. Labs and xrays were obtained. Abnormal lab values include the following: rbc 3.44, hgb 11.5, hct 33.7, sodium 135, creatinine 1.37, gfr 39, glucose 104, creatine kinase 25, a/g ratio 0.9. urinalysis reported wbc 4-8, rbc 0-3, leukocytes 3+, bacteria trace. Chest xray reported cardiomegaly without CHF, lungs clear. Xray of the right hip reported no acute findings. EKG: Sinus Rhythm with Rate=68 We admitted patient for further treatment and evaluation. She was started on normal saline at 80ml/hr, Demerol 12.5mg iv q6h prn pain, Zofran 4mg iv q6h prn nausea. We planned to follow up with am labs and continue to monitor patient. - Past Medical History Past Medical History: Anxiety, Arthritis, Depression, Dyslipidemia, GERD, Hypertension Additional Medical History: Cataracts, Freq UTI's, Hx Diverticulosis, Macular Degeneration, Hiatal Hernia, Degenerative Joint Disease - Past Surgical History Surgical History: Appendectomy, Cholecystectomy, Joint Replacement Additional Surgical History: Hernia Repair x 3, Left breast lumpectomy, HIP REPLACEMENT - Family History Family Medical History: Heart Failure - Social History Does patient currently use any type of tobacco product: No Have you used tobacco products in the last 12 months: No Type of Tobacco Use: None Does any household member use tobacco: No Alcohol Use: None Drug Use: None - Review of Systems Constitutional: No Symptoms Reported, Weakness Eyes: No Symptoms Reported. denies: Conjunctivae Inflammation, Eyelid Inflammation, Redness ENT: No Symptoms Reported. denies: Ear Discharge, Nose Discharge, Nose Congestion, Mouth Pain, Mouth Swelling, Throat Pain, Throat Swelling Respiratory: No Symptoms Reported. denies: Hemoptysis Cardiovascular: No Symptoms Reported. denies: Chest Pain Gastrointestinal: No Symptoms Reported. denies: Nausea, Vomiting, Abdominal Pain, Diarrhea, Constipation, Melena, Hematochezia Genitourinary: No Symptoms Reported Musculoskeletal: Other (RIGHT HIP PAIN ) Skin: Bruising, Wound (HEALING SURGICAL SCARS ) Neurological: Weakness - Physical Exam Vital Signs: Temperature 97 F Pulse Rate [Right Brachial] 65 Pulse Rate [Left Radial] 75 Pulse Rate 75 Respiratory Rate 18 Blood Pressure [Left Arm] 144/63 Blood Pressure [Right Arm] 155/68 Blood Pressure [Standing] 145/70 Blood Pressure [Sitting] 149/65 Blood Pressure [Lying] 171/74 Blood Pressure 139/65 O2 Sat by Pulse Oximetry 96 Oriented: Normal Eyes: Normal. negative: Blurred Vision, Diplopia, Photophobia Ear: Normal. negative: Ecchymosis, Hemotypanum, Abrasion, Laceration Nose: Normal Throat: Normal Respiratory: Rhonchi Throughout Cardiovascular: Normal. negative: Murmur, Edema : Normal Auscultation: Bowel Sounds: Normal Palpation: Normal. negative: Spleen Enlarged, Liver Enlarged, Mass Pulsatile Tenderness: Normal. negative: Rebound, Guarding, Rigidity Skin: Wound, Bruising Musculoskeletal: Right, Hip, Tender, Instability Psychiatric: Normal Mood Description: Depressed Affect: Depressed Speech Pattern: Clear - Assessment/Plan (1) Intractable pain Status: Acute Plan: DEMEROL 12.5MG IV Q6H PRN PAIN, ZOFRAN 4MG IV Q6H PRN NAUSEA, CONTINUE TO MONITOR (2) Right hip pain Status: Acute Plan: DEMEROL 12.5MG IV Q6H PRN PAIN, ZOFRAN 4MG IV Q6H PRN NAUSEA, CONTINUE TO MONITOR
--- NOTE | 2017-09-11 20:40 | PCM.PROG ---
Progress Note - Progress Note for Day of Date: 09/10/17 - Subjective Subjective: WAS ADMITTED FOR INTRACTABLE RIGHT HIP PAIN. TODAY, SHE IS ALERT AND ORIENTED, LYING IN BED ON MORNING ROUNDS. SHE CONTINUES WITH COMPLAINTS OF RIGHT HIP PAIN DESPITE RECEIVING IV PAIN MEDICATION. PATIENT EXPRESSES CONCERNS OF HAVING TO RETURN HOME. PATIENT REPORTS THAT SHE LIVES WITH HER DAUGHTER AND SON IN [place], HOWEVER, HER FAMILY IS OUT OF TOWN FOR AN UNKNOWN AMOUNT OF TIME. SHE STATES THAT SHE DOESN'T KNOW IF SHE WILL BE ABLE TO SAFELY LIVE ALONE DUE TO RECENT HIP SURGERY. HER VITAL SIGNS THIS MORNING ARE 97.9-78-18-97%-116/62. ABNORMAL VITAL SIGNS TODAY INCLUDE THE FOLLOWING: RBC 3.09, HGB 10.4, HCT 30.0. CREATININE 1.39, GFR 38, GLUCOSE 108, ALBUMIN 3.1. WE DISCUSSED WITH PATIENT PLACEMENT AT A REHAB FACILITY FOR PHYSICAL THERAPY. TODAY , WE PLAN TO CONTINUE WITH CURRENT PLAN OF CARE. WE PLAN TO FOLLOW UP WITH AM LABS AND CONTINUE TO MONITOR PATIENT. - Past Medical Family Social History Past Med/Fam/Surg Hx: No changes since H&P Allergies: Allergies cephalexin [From Keflex] Adverse Reaction (Verified 07/28/17 19:58) morphine Adverse Reaction (Verified 07/28/17 19:58) sertraline [From Zoloft] Adverse Reaction (Verified 07/28/17 19:58) - Review of Systems ROS: No change since H&P - Vital Signs and I&O's Vital Signs: Temperature 97 F Pulse Rate [Right Brachial] 65 Pulse Rate [Left Radial] 75 Pulse Rate 75 Respiratory Rate 18 Blood Pressure [Left Arm] 144/63 Blood Pressure [Right Arm] 155/68 Blood Pressure [Standing] 145/70 Blood Pressure [Sitting] 149/65 Blood Pressure [Lying] 171/74 Blood Pressure 139/65 O2 Sat by Pulse Oximetry 96 Intake and Output: Intake & Output 09/09/17 09/10/17 09/11/17 09/12/17 11:59 11:59 11:59 11:59 Intake Total 260 2769 1400 Balance 260 2769 1400 - Physical Exam Oriented: Normal Eyes: Normal. negative: Blurred Vision, Diplopia, Photophobia Ear: Normal. negative: Ecchymosis, Hemotypanum, Abrasion, Laceration Nose: Normal Throat: Normal Cardiovascular: Normal. negative: Murmur, Edema : Normal Auscultation: Bowel Sounds: Normal Palpation: Normal Tenderness: Normal. negative: Rebound, Guarding, Rigidity Skin: Wound, Bruising Musculoskeletal: Right, Hip, Tender, Instability Psychiatric: Normal Mood Description: Depressed Affect: Depressed Speech Pattern: Clear - Laboratory and Diagnostics Result Diagrams: 09/11/17 03:45 09/11/17 03:45 Labs: Laboratory WBC 4.8 X10^3/uL (3.6-10.0) 09/11/17 03:45 RBC 3.06 X10^6/uL (3.5-5.4) L 09/11/17 03:45 Hgb 10.3 g/dL (12.0-16.0) L 09/11/17 03:45 Hct 30.0 % (36.0-47.0) L 09/11/17 03:45 MCV 97.9 fL (80.0-100.0) 09/11/17 03:45 MCH 33.7 pg (27.0-34.0) 09/11/17 03:45 MCHC 34.4 g/dL (33.0-35.0) 09/11/17 03:45 RDW 14.9 % (11.6-16.5) 09/11/17 03:45 Plt Count 211 X10^3/uL (150.0-450.0) 09/11/17 03:45 MPV 7.8 fL (7.4-11.0) 09/11/17 03:45 Neut % 54.7 % (42.0-75.0) 09/11/17 03:45 Lymph % 32.5 % (21.0-51.0) 09/11/17 03:45 [place] % 8.0 % (0.0-13.0) 09/11/17 03:45 Eos % 3.7 % (0.9-2.9) H 09/11/17 03:45 Baso % 1.1 % (0.2-1.0) H 09/11/17 03:45 Neut # 2.6 x10^3/uL (2.2-4.8) 09/11/17 03:45 Lymph # 1.6 X10^3/uL (1.3-2.9) 09/11/17 03:45 [place] # 0.4 x10^3/uL (0.3-0.8) 09/11/17 03:45 Eos # 0.2 x10^3/uL (0.0-0.2) 09/11/17 03:45 Baso # 0.1 X10^3/uL (0.0-0.1) 09/11/17 03:45 Absolute Nucleated RBC 0.0 /100WBC 09/11/17 03:45 Sodium 139 mmol/L (136-145) 09/11/17 03:45 Corrected Sodium TNP 09/11/17 03:45 Potassium 4.1 mmol/L (3.5-5.1) 09/11/17 03:45 Chloride 108 mmol/L (98-107) H 09/11/17 03:45 Carbon Dioxide 24.0 mmol/L (21-32) 09/11/17 03:45 BUN 9 mg/dL (7-18) 09/11/17 03:45 Creatinine 1.31 mg/dL (0.55-1.02) H 09/11/17 03:45 Est GFR (MDRD) Af Amer 50 (>60) L 09/11/17 03:45 Est GFR (MDRD) Non-Af 41 (>60) L 09/11/17 03:45 Glucose 87 mg/dL (65-99) 09/11/17 03:45 Calcium 8.4 mg/dL (8.5-10.1) L 09/11/17 03:45 Corrected Calcium 9.3 mg/dL (8.5-10.1) 09/11/17 03:45 Total Bilirubin 0.20 mg/dL (0.2-1.0) 09/11/17 03:45 AST 15 Units/L (15-37) 09/11/17 03:45 ALT 11 Units/L (12-78) L 09/11/17 03:45 Alkaline Phosphatase 100 Units/L (46-116) 09/11/17 03:45 Creatine Kinase 25 Units/L (26-192) L 09/09/17 18:26 CK-MB (CK-2) < 1.0 ng/mL (0-4.0) 09/09/17 18:26 CK/CKMB % Calc 4.0 % (<4) 09/09/17 18:26 Troponin I < 0.02 ng/mL (0-1.5) 09/09/17 18:26 Total Protein 6.3 g/dL (6.4-8.2) L 09/11/17 03:45 Albumin 2.9 g/dL (3.4-5.0) L 09/11/17 03:45 Globulin 3.4 g/dL (2.5-4.5) 09/11/17 03:45 Albumin/Globulin Ratio 0.9 Ratio (1.1-2.1) L 09/11/17 03:45 Specimen Type Clean catch urine 09/10/17 07:48 Urine Color Yellow (YELLOW) 09/10/17 07:48 Urine Appearance Slightly hazy (CLEAR) 09/10/17 07:48 Urine pH 6.0 (5.0 - 8.0) 09/10/17 07:48 Ur Specific [place] 1.010 (1.000-1.030) 09/10/17 07:48 Urine Protein Negative (NEGATIVE) 09/10/17 07:48 Urine Glucose (UA) Negative (NEGATIVE) 09/10/17 07:48 Urine Ketones Negative (NEGATIVE) 09/10/17 07:48 Urine Occult Blood Negative (NEGATIVE) 09/10/17 07:48 Urine Nitrite Negative (NEGATIVE) 09/10/17 07:48 Urine Bilirubin Negative (NEGATIVE) 09/10/17 07:48 Urine Urobilinogen Normal (NORMAL) 09/10/17 07:48 Ur Leukocyte Esterase 3+ (NEGATIVE) 09/10/17 07:48 Urine RBC 0-3 /HPF (NEGATIVE) 09/10/17 07:48 Urine WBC 4-8 /HPF (NEGATIVE) 09/10/17 07:48 Ur Squamous Epith Cells Few /HPF (NEGATIVE) 09/10/17 07:48 Urine Bacteria Trace /HPF (NEGATIVE) 09/10/17 07:48 Ur Culture Indicated? No/not indicated 09/10/17 07:48 - Plan (1) Intractable pain Status: Acute Plan: DEMEROL 12.5MG IV Q6H PRN PAIN, ZOFRAN 4MG IV Q6H PRN NAUSEA, CONTINUE TO MONITOR (2) Right hip pain Status: Acute Plan: DEMEROL 12.5MG IV Q6H PRN PAIN, ZOFRAN 4MG IV Q6H PRN NAUSEA, CONTINUE TO MONITOR (3) Anemia Status: Chronic Qualifiers: Anemia type: iron deficiency Iron deficiency anemia type: inadequate dietary iron intake Qualified Code(s): D50.8 - Other iron deficiency anemias Plan: HEMOCYTE PLUS 1 TAB PO DAILY, CONTINUE TO MONITOR (4) Depression Status: Chronic Qualifiers: Depression Type: major depressive disorder Major depression recurrence: recurrent Active/Remission status: currently active Major depression episode severity: moderate Qualified Code(s): F33.1 - Major depressive disorder, recurrent, moderate Plan: CONTINUE CELEXA 40MG PO DAILY, CONTINUE TO MONITOR (5) GERD (gastroesophageal reflux disease) Status: Chronic Qualifiers: Esophagitis presence: esophagitis presence not specified Qualified Code(s) : K21.9 - Gastro-esophageal reflux disease without esophagitis Plan: CONTINUE PEPCID, CONTINUE TO MONITOR (6) Hypertension Status: Chronic Qualifiers: Hypertension type: essential hypertension Qualified Code(s): I10 - Essential (primary) hypertension Plan: CONTINUE COREG, CONTINUE ZESTRIL, CONTINUE TO MONITOR
[2017-09-11] MEDS: CATAPRES TAB 0.1 MG PO SCH (21:25)
[2017-09-11] MEDS: ANTIVERT TAB 25 MG PO SCH (21:25)
[2017-09-11] MEDS: NORCO 5/325 MG TAB PO PRN (21:26)
[2017-09-12] MEDS: NS 1000 ML 1,000 ML IV SCH (02:37)
[2017-09-12 06:16] LABS: BASOPHILS % (AUTO) 0.9 % (0.2-1.0); EOSINOPHILS # (AUTO) 0.2 x10^3/uL (0.0-0.2); EOSINOPHILS % (AUTO) 3.6 % (0.9-2.9); HEMATOCRIT 28.6 % (36.0-47.0); LYMPHOCYTES # (AUTO) 1.3 X10^3/uL (1.3-2.9); LYMPHOCYTES % (AUTO) 30.1 % (21.0-51.0); MEAN CORPUSCULAR HGB CONC 34.9 g/dL (33.0-35.0); MEAN CORPUSCULAR VOLUME 97.3 fL (80.0-100.0); MEAN PLATELET VOLUME 7.4 fL (7.4-11.0); MONOCYTES # (AUTO) 0.3 x10^3/uL (0.3-0.8); MONOCYTES % (AUTO) 7.9 % (0.0-13.0); NEUTROPHILS # (AUTO) 2.5 x10^3/uL (2.2-4.8); NEUTROPHILS % (AUTO) 57.5 % (42.0-75.0); PLATELET COUNT 200 X10^3/uL (150.0-450.0); RED BLOOD COUNT 2.93 X10^6/uL (3.5-5.4); RED CELL DISTRIBUTION WIDTH 14.8 % (11.6-16.5); WHITE BLOOD COUNT 4.4 X10^3/uL (3.6-10.0)
[2017-09-12 06:33] LABS: ALANINE AMINOTRANSFERASE 10 Units/L (12-78); ALBUMIN 2.8 g/dL (3.4-5.0); ALKALINE PHOSPHATASE 93 Units/L (46-116); ASPARTATE AMINO TRANSFERASE 16 Units/L (15-37); BLOOD UREA NITROGEN 6 mg/dL (7-18); CALCIUM 8.6 mg/dL (8.5-10.1); CARBON DIOXIDE 24.2 mmol/L (21-32); CHLORIDE 108 mmol/L (98-107); COR CA(FOR HYPOALB) 9.6 mg/dL (8.5-10.1); CREATININE 1.11 mg/dL (0.55-1.02); SODIUM 139 mmol/L (136-145); TOTAL PROTEIN 6.2 g/dL (6.4-8.2); eGFR BLACK RACES > 60 (>60); eGFR NON BLACK RACES 50 (>60)
[2017-09-12] MEDS ORDERED: ZESTRIL TAB 20 MG ONE (09:03)
[2017-09-12 09:17] VITALS: BP 172/70
[2017-09-12] MEDS: ZESTRIL TAB 20 MG PO SCH (09:19)
[2017-09-12] MEDS: PEPCID TAB 20 MG PO SCH (09:20)
[2017-09-12] MEDS: CELEXA PO SCH (09:20)
[2017-09-12] MEDS: COREG TAB 6.25 MG PO SCH (09:20)
[2017-09-12] MEDS: XARELTO PO SCH (09:20)
[2017-09-12] MEDS: HEMOCYTE-PLUS PO SCH (09:20)
[2017-09-12] MEDS: SINGULAIR TAB 10 MG PO SCH (09:21)
== END 2017-09-12 11:50 | disposition home health service (06) | DRG 556 ==
LOC: ER 18:13 → OBSVTOIN 20:32 → OBS 20:32 → ICU 09-11 18:40
PROVIDERS: ADMIT Internal Medicine; ATTEND Internal Medicine
DX: M25.551 Pain in right hip (principal); Z98.890 Other specified postprocedural states; D50.9 Iron deficiency anemia, unspecified; F41.8 Other specified anxiety disorders; I10 Essential (primary) hypertension; I51.7 Cardiomegaly; Z87.440 Personal history of urinary (tract) infections
CPT/HCPCS: 36415; 71010; 73552; 80053; 81001; 82550; 82553; 84484; 85025; 93005; 94760; 96365; 96374; 96375; 99284; G0378; J2175; J2405

== ENCOUNTER 2017-10-11 06:56 | Emergency (ER) | payer OTHER, MEDICARE ==
[2017-10-11 07:02] VITALS: BP 148/65; BMI 21.7
--- NOTE | 2017-10-11 07:30 | DR.GENAD ---
HPI - PCP Primary Care Physician: Roderick - HPI Comment HPI Comment: FELL AND INJURED RIGHT HIP. HAVE PROTHESIS IN THE LEFT HIP. THIS HIP IS ALSO HURTING. DO NOT REMEMBER HOW SHE FELL. DID HIT HER HEAD. NO OTHER COMPLAINT NOTED. - Complaint/Symptoms Chief Complaint Doctors Comments: PAIN LEFT HIP DUE TO A FALL THIS AM. Chief Complaint:: "I fell this morning on my left side. My hip hurts bad on that side. My main concern though, is that I just got my right hip replaced and I want to make sure that it did not mess it up." - Nurses notes reviewed Nurses Notes Review: Yes - Source History Provided: Patient - Mode of Arrival Mode of Arrival: EMS - Timing Onset of Chief Complaint: 10/11/17 Came on: Suddenly - Duration Duration: Constant Duration: Hours - Severity Severity: Moderate PMH - PMH Past Medical History: Yes Past Medical History: Anxiety, Arthritis, Depression, Dyslipidemia, GERD, Hypertension Past Surgical History: Yes Surgical History: Appendectomy, Cholecystectomy, Joint Replacement - Family History History of Family Medical Conditions: Yes Family Medical History: Heart Failure - Social History Does patient currently use any type of tobacco product: No Have you used tobacco products in the last 12 months: No Type of Tobacco Use: None Do you use any recreational Drugs:: No Lives With: Family Lives Where: Home - infectious screening In the last 2 months have you had wt loss of >10#?: NO Have you had fever, night sweats or hemotysis?: No Have you traveled outside the country in the last 6 months?: No Isolation: Standard ROS - Review of Systems Constitutional: No Symptoms Reported. negative: Chills, Fever, Weakness, Fatigue Eyes: No Symptoms Reported. negative: Eye Pain, Diplopia ENTM: No Symptoms Reported. negative: Ear Pain, Hearing Loss, Nose Pain Respiratoy: Moist Cough Cardiovascular: No Symptoms Reported Gastrointestinal/Abdominal: No Symptoms Reported Genitourinary: No Symptoms Reported Neurological: No Symptoms Reported Musculoskeletal: Left, Pelvis, Hip Integumentary: No Symptoms Reported Hematologic/Lymphatic: No Symptoms Reported Endocrine: No Symptoms Reported All Other Systems: Reviewed and Negative PE - Vital Signs Vitals: Temperature 98.4 F Pulse Rate 64 Respiratory Rate 18 Blood Pressure [Left Arm] 144/63 Blood Pressure [Right Arm] 172/70 Blood Pressure [Standing] 145/70 Blood Pressure [Sitting] 149/65 Blood Pressure [Lying] 171/74 Blood Pressure 148/65 O2 Sat by Pulse Oximetry 98 - General Limitations: No Limitations General Appearance: Alert - Head Head Exam: Other (BRUISING FOREHEAD) - Eyes Eye exam: Normal Appearance - ENT ENT Exam: Normal External Ear Exam External Ear Exam: Normal External Inspection TM/Canal Exam: Bilateral Normal Nose Exam: Normal Nose Exam Mouth Exam: Normal Inspection Throat Exam: Normal Inspection - Neck Neck Exam: Normal Inspection - Chest Chest Inspection: Symmetric Chest Wall Rise - Respiratory Respiratory Exam: Normal Lung Sounds Bilat Respiratory Exam: Bilateral Clear to Auscultation - Cardiovascular Cardiovascular Exam: Regular Rate, Normal Rhythm, Normal Heart Sounds - Abdominal Exam Abdominal Exam: Normal Bowel Sounds, Soft. negative: Tenderness - Extremities Extremities Exam: Normal Inspection - Back Back Exam: Other (TENDERNESS LEFT HIP.) - Neurologic Neurological Exam: Alert, Oriented X3 - Psychiatric Psychiatric Exam: Normal Affect, Normal Mood - Skin Skin Exam: Normal Color MDM - Differential Diagnosis Differential Diagnosis: CONTUSION, SPRAIN, STRAIN, FRATURE HIPS, CLOSE HEAD CONTUSION Course - Treatment Treatment: SEE ORDERS. - Education/Counseling Education/Counseling: Patient, Education Educated On: Diagnosis, Needs for Follow Up ROR - Labs Reviewed Laboratory Results Reviewed?: Yes Result Diagrams: 10/11/17 07:55 10/11/17 07:55 Laboratory: WBC 6.9 X10^3/uL (3.6-10.0) 10/11/17 07:55 RBC 4.07 X10^6/uL (3.5-5.4) 10/11/17 07:55 Hgb 13.1 g/dL (12.0-16.0) 10/11/17 07:55 Hct 38.6 % (36.0-47.0) 10/11/17 07:55 MCV 94.9 fL (80.0-100.0) 10/11/17 07:55 MCH 32.1 pg (27.0-34.0) 10/11/17 07:55 MCHC 33.8 g/dL (33.0-35.0) 10/11/17 07:55 RDW 14.0 % (11.6-16.5) 10/11/17 07:55 Plt Count 206 X10^3/uL (150.0-450.0) 10/11/17 07:55 MPV 7.3 fL (7.4-11.0) L 10/11/17 07:55 Neut % 76.2 % (42.0-75.0) H 10/11/17 07:55 Lymph % 16.3 % (21.0-51.0) L 10/11/17 07:55 [place] % 5.5 % (0.0-13.0) 10/11/17 07:55 Eos % 1.2 % (0.9-2.9) 10/11/17 07:55 Baso % 0.8 % (0.2-1.0) 10/11/17 07:55 Neut # 5.2 x10^3/uL (2.2-4.8) H 10/11/17 07:55 Lymph # 1.1 X10^3/uL (1.3-2.9) L 10/11/17 07:55 [place] # 0.4 x10^3/uL (0.3-0.8) 10/11/17 07:55 Eos # 0.1 x10^3/uL (0.0-0.2) 10/11/17 07:55 Baso # 0.1 X10^3/uL (0.0-0.1) 10/11/17 07:55 Absolute Nucleated RBC 0.0 /100WBC 10/11/17 07:55 Sodium 139 mmol/L (136-145) 10/11/17 07:55 Corrected Sodium TNP 10/11/17 07:55 Potassium 3.9 mmol/L (3.5-5.1) 10/11/17 07:55 Chloride 103 mmol/L (98-107) 10/11/17 07:55 Carbon Dioxide 26.3 mmol/L (21-32) 10/11/17 07:55 BUN 8 mg/dL (7-18) 10/11/17 07:55 Creatinine 1.19 mg/dL (0.55-1.02) H 10/11/17 07:55 Est GFR (MDRD) Af Amer 55 (>60) L 10/11/17 07:55 Est GFR (MDRD) Non-Af 46 (>60) L 10/11/17 07:55 Glucose 107 mg/dL (65-99) H 10/11/17 07:55 Calcium 9.2 mg/dL (8.5-10.1) 10/11/17 07:55 Corrected Calcium TNP 10/11/17 07:55 Total Bilirubin 0.30 mg/dL (0.2-1.0) 10/11/17 07:55 AST 25 Units/L (15-37) 10/11/17 07:55 ALT 15 Units/L (12-78) 10/11/17 07:55 Alkaline Phosphatase 129 Units/L (46-116) H 10/11/17 07:55 Creatine Kinase 37 Units/L (26-192) 10/11/17 07:55 CK-MB (CK-2) < 1.0 ng/mL (0-4.0) 10/11/17 07:55 CK/CKMB % Calc 2.7 % (<4) 10/11/17 07:55 Troponin I < 0.02 ng/mL (0-1.5) 10/11/17 07:55 Total Protein 7.4 g/dL (6.4-8.2) 10/11/17 07:55 Albumin 3.7 g/dL (3.4-5.0) 10/11/17 07:55 Globulin 3.7 g/dL (2.5-4.5) 10/11/17 07:55 Albumin/Globulin Ratio 1.0 Ratio (1.1-2.1) L 10/11/17 07:55 Specimen Type Clean catch urine 10/11/17 09:26 Urine Color Yellow (YELLOW) 10/11/17 09:26 Urine Appearance Slightly hazy (CLEAR) 10/11/17 09:26 Urine pH 5.0 (5.0 - 8.0) 10/11/17 09:26 Ur Specific [place] 1.015 (1.000-1.030) 10/11/17 09:26 Urine Protein Negative (NEGATIVE) 10/11/17 09:26 Urine Glucose (UA) Negative (NEGATIVE) 10/11/17 09:26 Urine Ketones Negative (NEGATIVE) 10/11/17 09:26 Urine Occult Blood Negative (NEGATIVE) 10/11/17 09:26 Urine Nitrite Negative (NEGATIVE) 10/11/17 09:26 Urine Bilirubin Negative (NEGATIVE) 10/11/17 09:26 Urine Urobilinogen Normal (NORMAL) 10/11/17 09:26 Ur Leukocyte Esterase 3+ (NEGATIVE) 10/11/17 09:26 Urine RBC Rare /HPF (NEGATIVE) 10/11/17 09:26 Urine WBC Tntc /HPF (NEGATIVE) 10/11/17 09:26 Ur Squamous Epith Cells Few /HPF (NEGATIVE) 10/11/17 09:26 Amorphous Sediment 1+ /HPF (NEGATIVE) 10/11/17 09:26 Urine Bacteria Trace /HPF (NEGATIVE) 10/11/17 09:26 Urine Yeast Few /HPF (NEGATIVE) 10/11/17 09:26 Ur Culture Indicated? Yes/culture set up 10/11/17 09:26 - XRAY XRAY Interpreted by: Radiologist (REPORT DISCUSS WITH PATIENT.) - Diagnosis Discharge Problem: Sprain and strain of unspecified site of hip and thigh Urinary tract infection Qualifiers: Urinary tract infection type: site unspecified Hematuria presence: with hematuria Qualified Code(s): N39.0 - Urinary tract infection, site not specified ; R31.9 - Hematuria, unspecified; R31.9 - Hematuria, unspecified - Discharge Plan Condition: Stable Prescriptions: Levofloxacin 750 mg PO DAILY #5 tablet - Follow ups/Referrals Follow ups/Referrals: Nabil Vaughn [Primary Care Provider] - 3 days - Instructions Instructions: Musculoskeletal Pain, Urinary Tract Infection, Adult, Easy-to- Read Additional Instructions: RETURN TO ED IF WORSE.
[2017-10-11 08:03] LABS: BASOPHILS # (AUTO) 0.1 X10^3/uL (0.0-0.1); BASOPHILS % (AUTO) 0.8 % (0.2-1.0); EOSINOPHILS # (AUTO) 0.1 x10^3/uL (0.0-0.2); EOSINOPHILS % (AUTO) 1.2 % (0.9-2.9); HEMATOCRIT 38.6 % (36.0-47.0); HEMOGLOBIN 13.1 g/dL (12.0-16.0); LYMPHOCYTES # (AUTO) 1.1 X10^3/uL (1.3-2.9); LYMPHOCYTES % (AUTO) 16.3 % (21.0-51.0); MEAN CORPUSCULAR HEMOGLOBIN 32.1 pg (27.0-34.0); MEAN CORPUSCULAR HGB CONC 33.8 g/dL (33.0-35.0); MEAN CORPUSCULAR VOLUME 94.9 fL (80.0-100.0); MEAN PLATELET VOLUME 7.3 fL (7.4-11.0); MONOCYTES # (AUTO) 0.4 x10^3/uL (0.3-0.8); MONOCYTES % (AUTO) 5.5 % (0.0-13.0); NEUTROPHILS # (AUTO) 5.2 x10^3/uL (2.2-4.8); NEUTROPHILS % (AUTO) 76.2 % (42.0-75.0); PLATELET COUNT 206 X10^3/uL (150.0-450.0); RED BLOOD COUNT 4.07 X10^6/uL (3.5-5.4); WHITE BLOOD COUNT 6.9 X10^3/uL (3.6-10.0)
[2017-10-11 08:05] LABS: BLOOD UREA NITROGEN 8 mg/dL (7-18); CALCIUM 9.2 mg/dL (8.5-10.1); CARBON DIOXIDE 26.3 mmol/L (21-32); CHLORIDE 103 mmol/L (98-107); CREATININE 1.19 mg/dL (0.55-1.02); SODIUM 139 mmol/L (136-145); eGFR BLACK RACES 55 (>60); eGFR NON BLACK RACES 46 (>60)
--- NOTE | 2017-10-11 08:37 | RAD ---
Examination: Portable AP chest History: Recent fall Comparison reference: 09/09/2017 Findings: Normal heart size, arteriosclerotic aorta, clear lungs and pleural spaces. There is no evid ence for pneumonia or pneumothorax. Bilateral shoulder osteoarthritis is present. Impression: No acute chest disease demonstrated. Reported By:
--- NOTE | 2017-10-11 08:39 | RAD ---
Examination: Bilateral hips, three views History: Fell Comparison reference: 08/29/2017 Findings: Frontal and abduction lateral views of left and right hips demonstrate no evidence for frac ture or dislocation. Bilateral prostheses are present, unchanged in appearance. Impression: Stable appearance of bilateral hip prostheses. No acute injury identified. Reported By:
[2017-10-11 08:45] LABS: CREATINE KINASE MB < 1.0 ng/mL (0-4.0)
--- NOTE | 2017-10-11 08:45 | CT ---
HISTORY: Fall Study: CT brain without contrast Comparison: 09/09/2016 Technique: Multiple axial images of the brain were obtained from the skull base to the vertex without administra tion of IV contrast. Dose reduction techniques including Automated Exposure Control (AEC) and adjust ment of mA and kV were utilized. Findings: There is chronic atrophy and nonspecific white matter hypoattenuation likely related to microvascular ischemic changes. No evidence of acute hemorrhage, midline shift, mass effect or abnormal extra-axi al fluid collection. The ventricular system is symmetric and nondilated. The soft tissues and osseo us structures are unremarkable. The visualized paranasal sinuses are clear. IMPRESSION: 1. Stable exam without acute intracranial abnormality. Reported By:
[2017-10-11 09:02] LABS: ALANINE AMINOTRANSFERASE 15 Units/L (12-78); ALBUMIN 3.7 g/dL (3.4-5.0); ALKALINE PHOSPHATASE 129 Units/L (46-116); CKMB % 2.7 % (<4); CREATINE KINASE 37 Units/L (26-192)
[2017-10-11 09:24] LABS: TOTAL PROTEIN 7.4 g/dL (6.4-8.2); TROPONIN I < 0.02 ng/mL (0-1.5)
[2017-10-11 09:39] LABS: ASPARTATE AMINO TRANSFERASE 25 Units/L (15-37)
[2017-10-11 09:45] LABS: BILIRUBIN,URINE NEGATIVE (NEGATIVE); BLOOD/HEMOGLOBIN,URINE NEGATIVE (NEGATIVE); GLUCOSE, URINE NEGATIVE (NEGATIVE); KETONES,URINE NEGATIVE (NEGATIVE); LEUKOCYTE ESTERASE ,URINE 3+ (NEGATIVE); NITRITES,URINE NEGATIVE (NEGATIVE); PROTEIN,URINE NEGATIVE (NEGATIVE); UROBILINOGEN,URINE NORMAL (NORMAL)
[2017-10-11] MEDS ORDERED: TORADOL 30 MG VIAL IVP PRN (09:46)
[2017-10-11 10:24] LABS: AMORPHOUS SEDIMENT,UR 1+ /HPF (NEGATIVE); APPEARANCE,URINE SLIGHTLY HAZY (CLEAR); BACTERIA,URINE TRACE /HPF (NEGATIVE); COLOR,URINE YELLOW (YELLOW); RBC,URINE RARE /HPF (NEGATIVE); SQUAMOUS EPITHELIAL CELL,UR FEW /HPF (NEGATIVE)
[2017-10-11 10:25] LABS: YEAST,URINE FEW /HPF (NEGATIVE)
== END 2017-10-11 10:49 | disposition home or self-care (01) ==
LOC: ER 06:56
DX: S73.109A Unspecified sprain of unspecified hip, initial encounter (principal); N39.0 Urinary tract infection, site not specified; R31.9 Hematuria, unspecified; B96.4 Proteus (mirabilis) (morganii) as the cause of diseases classified elsewhere; W19.XXXA Unspecified fall, initial encounter; Y92.9 Unspecified place or not applicable
CPT/HCPCS: 36415; 70450; 71010; 73521; 80053; 81001; 82550; 82553; 84484; 85025; 87086; 87088; 87186; 93005; 93010; 99282; 99283

== ENCOUNTER 2017-10-21 09:29 | Emergency (ER) | payer OTHER, MEDICARE ==
[2017-10-21 09:41] VITALS: BP 139/91; BMI 20.5
--- NOTE | 2017-10-21 09:50 | DR.GENAD ---
HPI - PCP Primary Care Physician: MAO - Complaint/Symptoms Chief Complaint Doctors Comments: Patient admits to a pain level of 3 at this time. Fell on last night or this AM not sure. Pain with ambulation. Chief Complaint:: PATIENT FELL THIS MORNING AND IS NOW HAVING SOME DISCOMFORT TO HER RT HIP. PATIENT STATED THAT IT IS HARD TO PUT ANY WEIGHT DOWN ON IT AT THIS TIME. SHE STATED THAT SHE HAS TROUBLE WITH THIS HIP COMING OUT SOMETIMES BUT IT DOES NOT FEEL LIKE IT HAS BEEN DISPLACED AT THIS TIME. - Source History Provided: Patient, EMS - Mode of Arrival Mode of Arrival: Stretcher - Timing Onset of Chief Complaint: 10/21/17 PMH - PMH Past Medical History: Yes Past Medical History: Anxiety, Arthritis, Depression, Dyslipidemia, GERD, Hypertension Past Surgical History: Yes Surgical History: Appendectomy, Cholecystectomy, Joint Replacement - Family History History of Family Medical Conditions: Yes Family Medical History: Heart Failure - Social History Does patient currently use any type of tobacco product: No Have you used tobacco products in the last 12 months: No Type of Tobacco Use: None Does any household member use tobacco: No Alcohol Use: None Do you use any recreational Drugs:: No Lives With: Family Lives Where: Home - infectious screening In the last 2 months have you had wt loss of >10#?: NO Have you had fever, night sweats or hemotysis?: No Have you traveled outside the country in the last 6 months?: No Isolation: Standard ROS - Review of Systems Eyes: No Symptoms Reported ENTM: No Symptoms Reported Respiratoy: No Symptoms Reported Cardiovascular: No Symptoms Reported Gastrointestinal/Abdominal: No Symptoms Reported Genitourinary: No Symptoms Reported Neurological: No Symptoms Reported Musculoskeletal: No Symptoms Reported Integumentary: No Symptoms Reported Hematologic/Lymphatic: No Symptoms Reported Endocrine: No Symptoms Reported Psychiatric: No Symptoms Reported All Other Systems: Reviewed and Negative PE - Vital Signs Vitals: Temperature 98.2 F Pulse Rate 88 Respiratory Rate 14 Blood Pressure [Left Arm] 144/63 Blood Pressure [Right Arm] 172/70 Blood Pressure [Standing] 145/70 Blood Pressure [Sitting] 149/65 Blood Pressure [Lying] 171/74 Blood Pressure 139/91 O2 Sat by Pulse Oximetry 98 - General Limitations: Physical Limitation (right hip pain) General Appearance: Alert, In No Apparent Distress - Head Head Exam: Normal Inspection, Atraumatic - Eyes Eye exam: Normal Appearance, PERRL, EOMI - ENT ENT Exam: Normal Exam External Ear Exam: Normal External Inspection TM/Canal Exam: Bilateral Normal Nose Exam: Normal Nose Exam Mouth Exam: Normal Inspection Throat Exam: Normal Inspection - Neck Neck Exam: Normal Inspection, Full ROM - Chest Chest Inspection: Normal Inspection, Symmetric Chest Wall Rise - Respiratory Respiratory Exam: Normal Lung Sounds Bilat Respiratory Exam: Bilateral Clear to Auscultation - Cardiovascular Cardiovascular Exam: Regular Rate, Normal Rhythm - Abdominal Exam Abdominal Exam: Normal Inspection, Normal Bowel Sounds Abdominal Tenderness: negative: RUQ, RLQ, LUQ, LLQ, Epigastrium, Suprapubic, Diffuse, Mild, Moderate, Severe, Other - Extremities Extremities Exam: Normal Inspection, Tenderness (right hip to palpation) - Back Back Exam: Normal Inspection - Neurologic Neurological Exam: Alert, Oriented X3, CN II-XII Intact - Psychiatric Psychiatric Exam: Normal Affect - Skin Skin Exam: Warm, Dry, Intact ROR - XRAY XRAY Interpreted by: Radiologist (Right Hip: Supine view of the pelvis and AP and frog-leg views of the right hip were obtained and comparison made to previous study of 10/11/17. A right total hip prosthesis is in place. The sideplate with encircling wires along the lateral aspect of the proximal right femoral regon is again identified. No acute fracture is seen. A left femoral head prosthesis is in place. Impression: Right total hip prosthesis unchanged in appearance. Left femoral head prosthesis.) - Diagnosis Discharge Problem: Contusion of hip, right Qualifiers: Encounter type: sequela Qualified Code(s): S70.01XS - Contusion of right hip, sequela - Discharge Plan Condition: Stable - Follow ups/Referrals Follow ups/Referrals: Nabil Vaughn [Primary Care Provider] - 3 days - Instructions
--- NOTE | 2017-10-21 10:56 | RAD ---
History: Fall with right hip pain Study: Right hip Findings: Supine view of the pelvis and AP and frog-leg views of the right hip were obtained and comp arison made to previous study of 10/11/2017. A right total hip prosthesis is in place. The sideplate with encircling wires along the lateral aspect of the proximal right femoral region is again identifi ed. No acute fracture is seen. A left femoral head prosthesis is in place. Impression: Right total hip prosthesis unchanged in appearance. Left femoral head prosthesis. Reported By:
== END 2017-10-21 11:22 | disposition home or self-care (01) ==
LOC: ER 09:36
DX: S70.01XS Contusion of right hip, sequela (principal); W19.XXXA Unspecified fall, initial encounter; Y92.9 Unspecified place or not applicable
CPT/HCPCS: 73501; 99282

== ENCOUNTER 2017-10-23 09:59 | Inpatient (IN) | payer OTHER, MEDICARE ==
[2017-10-23 11:06] VITALS: BMI 21.7
[2017-10-23] MEDS ORDERED: FLUVIRIN IM ONE (11:06)
[2017-10-23 11:48] LABS: BASOPHILS # (AUTO) 0.1 X10^3/uL (0.0-0.1); BASOPHILS % (AUTO) 0.8 % (0.2-1.0); EOSINOPHILS # (AUTO) 0.1 x10^3/uL (0.0-0.2); EOSINOPHILS % (AUTO) 0.9 % (0.9-2.9); HEMATOCRIT 40.1 % (36.0-47.0); HEMOGLOBIN 13.8 g/dL (12.0-16.0); LYMPHOCYTES # (AUTO) 1.3 X10^3/uL (1.3-2.9); LYMPHOCYTES % (AUTO) 16.8 % (21.0-51.0); MEAN CORPUSCULAR HEMOGLOBIN 32.3 pg (27.0-34.0); MEAN CORPUSCULAR HGB CONC 34.4 g/dL (33.0-35.0); MEAN CORPUSCULAR VOLUME 93.8 fL (80.0-100.0); MEAN PLATELET VOLUME 7.3 fL (7.4-11.0); MONOCYTES # (AUTO) 0.5 x10^3/uL (0.3-0.8); MONOCYTES % (AUTO) 6.6 % (0.0-13.0); NEUTROPHILS # (AUTO) 5.7 x10^3/uL (2.2-4.8); NEUTROPHILS % (AUTO) 74.9 % (42.0-75.0); PLATELET COUNT 261 X10^3/uL (150.0-450.0); RED BLOOD COUNT 4.28 X10^6/uL (3.5-5.4); RED CELL DISTRIBUTION WIDTH 13.5 % (11.6-16.5); WHITE BLOOD COUNT 7.6 X10^3/uL (3.6-10.0)
[2017-10-23] MEDS: NS 1000 ML 1,000 ML IV SCH (11:49)
[2017-10-23 12:02] LABS: ALANINE AMINOTRANSFERASE 19 Units/L (12-78); ALBUMIN 3.7 g/dL (3.4-5.0); ALKALINE PHOSPHATASE 119 Units/L (46-116); ASPARTATE AMINO TRANSFERASE 20 Units/L (15-37); BLOOD UREA NITROGEN 17 mg/dL (7-18); CALCIUM 8.7 mg/dL (8.5-10.1); CARBON DIOXIDE 24.5 mmol/L (21-32); CHLORIDE 102 mmol/L (98-107); SODIUM 137 mmol/L (136-145); TOTAL PROTEIN 7.4 g/dL (6.4-8.2); eGFR BLACK RACES 50 (>60); eGFR NON BLACK RACES 41 (>60)
[2017-10-23 12:07] LABS: BILIRUBIN,URINE NEGATIVE (NEGATIVE); BLOOD/HEMOGLOBIN,URINE 1+ (NEGATIVE); GLUCOSE, URINE NEGATIVE (NEGATIVE); KETONES,URINE 1+ (NEGATIVE); LEUKOCYTE ESTERASE ,URINE 2+ (NEGATIVE); NITRITES,URINE POSITIVE (NEGATIVE); PROTEIN,URINE 1+ (NEGATIVE); UROBILINOGEN,URINE NORMAL (NORMAL)
[2017-10-23 12:15] LABS: APPEARANCE,URINE HAZY (CLEAR); BACTERIA,URINE 3+ /HPF (NEGATIVE); COLOR,URINE YELLOW (YELLOW); RBC,URINE 0-2 /HPF (NEGATIVE); SQUAMOUS EPITHELIAL CELL,UR NEGATIVE /HPF (NEGATIVE)
--- NOTE | 2017-10-23 16:09 | CT ---
HISTORY: Fall with altered mental status. Study: CT brain without contrast Comparison: CT head dated October 11, 2017. Technique: Multiple axial images of the brain were obtained from the skull base to the vertex without administra tion of IV contrast. Dose reduction techniques including Automated Exposure Control (AEC) and adjust ment of mA and kV were utilized. Findings: Age-related cortical atrophy and chronic small vessel ischemic changes. No acute intraparenchymal hem orrhage or mass can be identified. No extra-axial fluid collections are seen. No alteration in the attenuation of the brain parenchyma can be identified to suggest acute or subacute ischemic change. The ventricular system is symmetric and nondilated. Moderate mucosal thickening of the right maxillar y sinus. Remaining visualized paranasal sinuses and mastoid air cells are clear. No acute osseous abn ormality. IMPRESSION: 1. No acute intracranial pathology. 2. Sinus disease as above. Reported By:
[2017-10-23] MEDS: CIPRO IV 400 MG PREMIX* 400 MG/200 ML IV.SOLN. IV SCH (21:17)
[2017-10-24] MEDS: NS 1000 ML 1,000 ML IV SCH (00:46)
[2017-10-24 06:24] LABS: BASOPHILS # (AUTO) 0.1 X10^3/uL (0.0-0.1); BASOPHILS % (AUTO) 0.8 % (0.2-1.0); EOSINOPHILS # (AUTO) 0.1 x10^3/uL (0.0-0.2); EOSINOPHILS % (AUTO) 1.9 % (0.9-2.9); HEMATOCRIT 39.1 % (36.0-47.0); HEMOGLOBIN 13.5 g/dL (12.0-16.0); LYMPHOCYTES # (AUTO) 1.5 X10^3/uL (1.3-2.9); MEAN CORPUSCULAR HEMOGLOBIN 32.6 pg (27.0-34.0); MEAN CORPUSCULAR HGB CONC 34.5 g/dL (33.0-35.0); MEAN CORPUSCULAR VOLUME 94.4 fL (80.0-100.0); MEAN PLATELET VOLUME 7.2 fL (7.4-11.0); MONOCYTES # (AUTO) 0.5 x10^3/uL (0.3-0.8); MONOCYTES % (AUTO) 6.5 % (0.0-13.0); NEUTROPHILS # (AUTO) 5.6 x10^3/uL (2.2-4.8); NEUTROPHILS % (AUTO) 71.8 % (42.0-75.0); PLATELET COUNT 234 X10^3/uL (150.0-450.0); RED BLOOD COUNT 4.14 X10^6/uL (3.5-5.4); RED CELL DISTRIBUTION WIDTH 13.7 % (11.6-16.5); WHITE BLOOD COUNT 7.9 X10^3/uL (3.6-10.0)
[2017-10-24 06:39] LABS: ALANINE AMINOTRANSFERASE 20 Units/L (12-78); ALBUMIN 3.3 g/dL (3.4-5.0); ALKALINE PHOSPHATASE 119 Units/L (46-116); ASPARTATE AMINO TRANSFERASE 19 Units/L (15-37); BLOOD UREA NITROGEN 8 mg/dL (7-18); CALCIUM 8.6 mg/dL (8.5-10.1); CARBON DIOXIDE 25.3 mmol/L (21-32); CHLORIDE 106 mmol/L (98-107); COR CA(FOR HYPOALB) 9.2 mg/dL (8.5-10.1); CREATININE 1.14 mg/dL (0.55-1.02); SODIUM 142 mmol/L (136-145); TOTAL PROTEIN 7.1 g/dL (6.4-8.2); eGFR BLACK RACES 58 (>60); eGFR NON BLACK RACES 48 (>60)
[2017-10-24] MEDS ORDERED: NORCO 5/325 MG TAB PO PRN (07:42)
[2017-10-24] MEDS: CIPRO IV 400 MG PREMIX* 400 MG/200 ML IV.SOLN. IV SCH (09:02)
[2017-10-24] MEDS: ZyPREXA TAB 5 MG PO SCH ×2 (10:04→21:11)
[2017-10-24] MEDS ORDERED: FLUVIRIN IM ONE (13:00)
[2017-10-24] MEDS ORDERED: NORCO 7.5/325 MG TAB PO PRN (14:08)
[2017-10-24] MEDS ORDERED: OMEPRAZOLE PO SCH (14:15)
[2017-10-24] MEDS ORDERED: PATIENT'S HOME MEDICATION (Lisinopril [Lisinopril] 1 TAB) PO SCH (14:15)
[2017-10-24] MEDS ORDERED: CITALOPRAM HYDROBROMIDE PO SCH (14:15)
[2017-10-24] MEDS ORDERED: PATIENT'S HOME MEDICATION PO SCH (14:30)
--- NOTE | 2017-10-24 15:02 | DR.UPDATE ---
H&P Update History and Physical Update: WAS SEEN IN THE OFFICE ON 10/23/17. A H&P WAS COMPLETED PRIOR TO ADMISSION. PATIENT HAS BEEN SEEN AND EXAMINED WITH NO CHANGES NOTED TO H&P. Changes noted: NO Yes with the following:
[2017-10-24] MEDS: HALDOL INJ IM PRN (18:20)
[2017-10-24] MEDS: HEMOCYTE-PLUS PO SCH (20:12)
[2017-10-24] MEDS: PEPCID TAB 20 MG PO SCH (20:13)
[2017-10-24] MEDS: EFFEXOR TAB 75 MG (BID DOSING) PO SCH ×2 (20:13→21:10)
[2017-10-24] MEDS: COREG TAB 6.25 MG PO SCH ×2 (20:13→21:11)
[2017-10-24] MEDS: SINGULAIR TAB 10 MG PO SCH (20:13)
[2017-10-24] MEDS: ANTIVERT TAB 25 MG PO SCH (21:11)
[2017-10-24] MEDS: CATAPRES TAB 0.1 MG PO SCH (21:11)
--- NOTE | 2017-10-24 22:18 | PCM.PROG ---
Progress Note - Progress Note for Day of Date: 10/24/17 - Subjective Subjective: WAS ADMITTED FOR ALTERED MENTAL STATUS. TODAY, SHE IS LYING IN BED WITH EYES OPEN ON MORNING ROUNDS. PATIENT IS NOT ORIENTED TO TIME OR PLACE. SHE DOES CALL ME BY NAME, BUT IS NOT ORIENTED TO WHY SHE IS HERE. SHE IS NOTED WITH COMPLAINTS OF SUPRAPUBIC PAIN. PATIENT STATES. I THINK I AM GOING OUT. I THINK I AM DYING. ON EXAMINATION, PUPILS PERRL. HEART IN REGULAR IN RATE AND RHYTHM. LUNGS ARE CLEAR BILATERALLY TO AUSCULTATION. ABDOMEN IS ROUND, SOFT, AND NOTED WITH MILD, SUPRAPUBIC TENDERNESS. NORMAL BOWEL SOUNDS ARE NOTED IN ALL QUADRANTS. THERE IS GOOD MOVEMENT IN ALL EXTREMITIES. STAFF REPORTS THAT PATIENT HAS BEEN COMBATIVE WITH NURSES AND TRYING TO CLIMB OVER SIDERAILS. HER VITAL SIGNS THIS MORNING ARE 98.2-96-22-97%-143/79. ABNORMAL LAB VALUES INCLUDE THE FOLLOWING: CREATININE 1.14, GFR 48, GLUCOSE 105, ALK PHOS 119 , ALBUMIN 3.3. URINALYSIS WAS OBTAINED ON ADMISSION AND REPORTED Hazy, Protein 1 +, Ketones 1+, Occult Blood 1+, Nitrite Positive, Leuk Est 2+, RBC 0-2, WBC 11- 12, Bacteria 3+, Culture Pending. BRAIN CT REPORTED NO ACUTE INTRACRANIAL ABNORMALITY. MODERATE MUCOSAL THICKENING OF THE RIGHT MAXILLARY SINUS. WE STARTED HER ON CIPRO 400MG IV Q12H LAST NIGHT. TODAY, WE WILL START ZYPREXA 5MG PO BID. OTHERWISE, WE WILL CONTINUE WITH CURRENT PLAN OF CARE. WE PLAN TO FOLLOW UP WITH AM LABS AND CONTINUE TO MONTOR PATIENT. - Past Medical Family Social History Past Med/Fam/Surg Hx: No changes since H&P Allergies: Allergies cephalexin [From Keflex] Adverse Reaction (Verified 07/28/17 19:58) morphine Adverse Reaction (Verified 07/28/17 19:58) sertraline [From Zoloft] Adverse Reaction (Verified 07/28/17 19:58) - Review of Systems ROS: No change since H&P - Vital Signs and I&O's Vital Signs: Temperature 98.4 F Pulse Rate [Left Brachial] 101 Respiratory Rate 20 Blood Pressure [Left Arm] 187/84 Blood Pressure [Right Arm] 172/70 Blood Pressure [Standing] 145/70 Blood Pressure [Sitting] 149/65 Blood Pressure [Lying] 171/74 Blood Pressure 139/91 O2 Sat by Pulse Oximetry 99 Intake and Output: Intake & Output 10/22/17 10/23/17 10/24/17 10/25/17 11:59 11:59 11:59 11:59 Intake Total 2470 100 Balance 2470 100 - Physical Exam Oriented: Person Eyes: Normal. negative: Blurred Vision, Diplopia, Discharge, Pain, Redness, Photophobia, Other Ear: Normal. negative: Right, Left, Swelling, Ecchymosis, Hemotypanum, Abrasion , Laceration Nose: Normal. negative: Injected, Discharge, Blood, Other Throat: Normal. negative: Tonsillar Hypertrophy, Red, Exudate, Dry, Other Respiratory: Normal Cardiovascular: Normal : Normal. negative: Dysuria, Hematuria, Frequency, Discharge, Testicular Pain , Bleeding, , Other Auscultation: Bowel Sounds: Normal. negative: Bruit, Absent, Increased, Decreased, High Pitched, Other Palpation: Normal Tenderness: Suprapubic, Mild. negative: Rebound, Guarding, Rigidity Skin: Decreased Turgur Musculoskeletal: Right, Hip, Tender Psychiatric: Normal Mood Description: Calm Affect: Normal Speech Pattern: Clear, Excessive - Laboratory and Diagnostics Result Diagrams: 10/24/17 05:20 10/24/17 06:20 Labs: 10/23/17 12:00 Urine,Catheterized Urine Culture - Preliminary Laboratory WBC 7.9 X10^3/uL (3.6-10.0) 10/24/17 05:20 RBC 4.14 X10^6/uL (3.5-5.4) 10/24/17 05:20 Hgb 13.5 g/dL (12.0-16.0) 10/24/17 05:20 Hct 39.1 % (36.0-47.0) 10/24/17 05:20 MCV 94.4 fL (80.0-100.0) 10/24/17 05:20 MCH 32.6 pg (27.0-34.0) 10/24/17 05:20 MCHC 34.5 g/dL (33.0-35.0) 10/24/17 05:20 RDW 13.7 % (11.6-16.5) 10/24/17 05:20 Plt Count 234 X10^3/uL (150.0-450.0) 10/24/17 05:20 MPV 7.2 fL (7.4-11.0) L 10/24/17 05:20 Neut % 71.8 % (42.0-75.0) 10/24/17 05:20 Lymph % 19.0 % (21.0-51.0) L 10/24/17 05:20 [place] % 6.5 % (0.0-13.0) 10/24/17 05:20 Eos % 1.9 % (0.9-2.9) 10/24/17 05:20 Baso % 0.8 % (0.2-1.0) 10/24/17 05:20 Neut # 5.6 x10^3/uL (2.2-4.8) H 10/24/17 05:20 Lymph # 1.5 X10^3/uL (1.3-2.9) 10/24/17 05:20 [place] # 0.5 x10^3/uL (0.3-0.8) 10/24/17 05:20 Eos # 0.1 x10^3/uL (0.0-0.2) 10/24/17 05:20 Baso # 0.1 X10^3/uL (0.0-0.1) 10/24/17 05:20 Absolute Nucleated RBC 0.0 /100WBC 10/24/17 05:20 Sodium 142 mmol/L (136-145) 10/24/17 06:20 Corrected Sodium TNP 10/24/17 06:20 Potassium 3.8 mmol/L (3.5-5.1) 10/24/17 06:20 Chloride 106 mmol/L (98-107) 10/24/17 06:20 Carbon Dioxide 25.3 mmol/L (21-32) 10/24/17 06:20 BUN 8 mg/dL (7-18) 10/24/17 06:20 Creatinine 1.14 mg/dL (0.55-1.02) H 10/24/17 06:20 Est GFR (MDRD) Af Amer 58 (>60) L 10/24/17 06:20 Est GFR (MDRD) Non-Af 48 (>60) L 10/24/17 06:20 Glucose 105 mg/dL (65-99) H 10/24/17 06:20 Calcium 8.6 mg/dL (8.5-10.1) 10/24/17 06:20 Corrected Calcium 9.2 mg/dL (8.5-10.1) 10/24/17 06:20 Total Bilirubin 0.30 mg/dL (0.2-1.0) 10/24/17 06:20 AST 19 Units/L (15-37) 10/24/17 06:20 ALT 20 Units/L (12-78) 10/24/17 06:20 Alkaline Phosphatase 119 Units/L (46-116) H 10/24/17 06:20 Total Protein 7.1 g/dL (6.4-8.2) 10/24/17 06:20 Albumin 3.3 g/dL (3.4-5.0) L 10/24/17 06:20 Globulin 3.8 g/dL (2.5-4.5) 10/24/17 06:20 Albumin/Globulin Ratio 0.9 Ratio (1.1-2.1) L 10/24/17 06:20 Specimen Type Catherized urine 10/23/17 12:00 Urine Color Yellow (YELLOW) 10/23/17 12:00 Urine Appearance Hazy (CLEAR) 10/23/17 12:00 Urine pH 5.0 (5.0 - 8.0) 10/23/17 12:00 Ur Specific [place] 1.025 (1.000-1.030) 10/23/17 12:00 Urine Protein 1+ (NEGATIVE) 10/23/17 12:00 Urine Glucose (UA) Negative (NEGATIVE) 10/23/17 12:00 Urine Ketones 1+ (NEGATIVE) 10/23/17 12:00 Urine Occult Blood 1+ (NEGATIVE) 10/23/17 12:00 Urine Nitrite Positive (NEGATIVE) 10/23/17 12:00 Urine Bilirubin Negative (NEGATIVE) 10/23/17 12:00 Urine Urobilinogen Normal (NORMAL) 10/23/17 12:00 Ur Leukocyte Esterase 2+ (NEGATIVE) 10/23/17 12:00 Urine RBC 0-2 /HPF (NEGATIVE) 10/23/17 12:00 Urine WBC 11-12 /HPF (NEGATIVE) 10/23/17 12:00 Ur Squamous Epith Cells Negative /HPF (NEGATIVE) 10/23/17 12:00 Urine Bacteria 3+ /HPF (NEGATIVE) 10/23/17 12:00 Ur Culture Indicated? Yes/culture set up 10/23/17 12:00 - Plan (1) Altered mental status Status: Acute Qualifiers: Altered mental status type: transient alteration of awareness Qualified Code(s): R40.4 - Transient alteration of awareness Plan: ZYPREXA 5MG PO BID, CONTINUE TO MONITOR (2) Urinary tract infection Status: Acute Qualifiers: Urinary tract infection type: acute cystitis Hematuria presence: without hematuria Qualified Code(s): N30.00 - Acute cystitis without hematuria Plan: CIPRO 400MG IV Q12H, CONTINUE IV FLUIDS, ENCOURAGE PO INTAKE, CONTINUE TO MONITOR
[2017-10-25] MEDS: HALDOL INJ IM PRN (01:02)
[2017-10-25] MEDS: NS 1000 ML 1,000 ML IV SCH (06:09)
[2017-10-25] MEDS: ZyPREXA TAB 5 MG PO SCH ×3 (10:00→20:30)
[2017-10-25] MEDS: HEMOCYTE-PLUS PO SCH ×2 (10:00→11:20)
[2017-10-25] MEDS: EFFEXOR TAB 75 MG (BID DOSING) PO SCH ×3 (10:00→20:30)
[2017-10-25] MEDS: PriLOSEC PO SCH ×2 (10:00→11:21)
[2017-10-25] MEDS: COREG TAB 6.25 MG PO SCH ×3 (10:01→20:30)
[2017-10-25] MEDS: ZESTRIL TAB 10 MG PO SCH ×2 (10:01→11:20)
[2017-10-25] MEDS: PEPCID TAB 20 MG PO SCH ×2 (10:01→11:21)
[2017-10-25] MEDS: SINGULAIR TAB 10 MG PO SCH ×2 (10:01→11:22)
[2017-10-25] MEDS: CELEXA PO SCH ×2 (10:01→11:20)
[2017-10-25] MEDS: CIPRO IV 400 MG PREMIX* 400 MG/200 ML IV.SOLN. IV SCH (10:02)
[2017-10-25] MEDS: CATAPRES TAB 0.1 MG PO SCH (20:30)
[2017-10-25] MEDS: ANTIVERT TAB 25 MG PO SCH (20:31)
--- NOTE | 2017-10-26 01:01 | PCM.PROG ---
Progress Note - Progress Note for Day of Date: 10/26/17 - Subjective Subjective: WAS ADMITTED FOR ALTERED MENTAL STATUS. STAFF REPORTS THAT PATIENT CONTINUED TO BE COMBATIVE YESTERDAY AND THROUGHOUT THE NIGHT DESPITE MEDICATION ORDERS. PATIENT WAS RESTRAINED THROUGHOUT THE NIGHT FOR HER SAFETY AND THE STAFFS. TODAY, SHE IS LYING IN BED WITH EYES CLOSED ON MORNING ROUNDS. SHE AWAKENS TO VERBAL STIMULI, BUT IS NOT ORIENTED TO TIME OR PLACE. SHE IS NOTED WITH INAPPROPRIATE RESPONSE TO QUESTIONS. SHE DOES VERBALIZED COMPLAINTS OF ABDOMINAL PAIN. ON EXAMINATION, PUPILS PERRL. HEART IN REGULAR IN RATE AND RHYTHM. LUNGS ARE CLEAR BILATERALLY TO AUSCULTATION. ABDOMEN IS ROUND, SOFT, AND NOTED WITH MILD, SUPRAPUBIC TENDERNESS. NORMAL BOWEL SOUNDS ARE NOTED IN ALL QUADRANTS. THERE IS GOOD MOVEMENT IN ALL EXTREMITIES. HER VITAL SIGNS THIS MORNING ARE 98.1-91-20-93%-142/74. SHE IS HEMODYNAMICALLY STABLE TODAY. WE STARTED HER ON CIPRO 400MG IV Q12H FOR A URINARY TRACT INFECTION.TODAY, WE WILL CONTINUE WITH CURRENT PLAN OF CARE. WE PLAN TO DISCUSS PLACEMENT AT A S[facility]IOR CARE CARE FACILITY WITH PATIENTS DAUGHTER. WE PLAN TO FOLLOW UP WITH AM LABS AND CONTINUE TO MONTOR PATIENT. - Past Medical Family Social History Past Med/Fam/Surg Hx: No changes since H&P Allergies: Allergies cephalexin [From Keflex] Adverse Reaction (Verified 07/28/17 19:58) morphine Adverse Reaction (Verified 07/28/17 19:58) sertraline [From Zoloft] Adverse Reaction (Verified 07/28/17 19:58) - Review of Systems ROS: No change since H&P - Vital Signs and I&O's Vital Signs: Temperature 99.1 F Pulse Rate [Left Brachial] 98 Respiratory Rate 18 Blood Pressure [Left Arm] 191/81 Blood Pressure [Right Arm] 142/74 Blood Pressure [Standing] 145/70 Blood Pressure [Sitting] 149/65 Blood Pressure [Lying] 171/74 Blood Pressure 139/91 O2 Sat by Pulse Oximetry 95 Intake and Output: Intake & Output 10/23/17 10/24/17 10/25/17 10/26/17 11:59 11:59 11:59 11:59 Intake Total 2470 220 120 Balance 2470 220 120 - Physical Exam Oriented: Person Eyes: Normal. negative: Blurred Vision, Diplopia, Discharge, Pain, Redness, Photophobia, Other Ear: Normal. negative: Right, Left, Swelling, Ecchymosis, Hemotypanum, Abrasion , Laceration Nose: Normal. negative: Injected, Discharge, Blood, Other Throat: Normal. negative: Tonsillar Hypertrophy, Red, Exudate, Dry, Other Respiratory: Normal Cardiovascular: Normal : Normal. negative: Dysuria, Hematuria, Frequency, Discharge, Testicular Pain , Bleeding, , Other Auscultation: Bowel Sounds: Normal. negative: Bruit, Absent, Increased, Decreased, High Pitched, Other Palpation: Normal Tenderness: Suprapubic, Mild. negative: Rebound, Guarding, Rigidity Skin: Decreased Turgur Musculoskeletal: Right, Hip, Tender Psychiatric: Normal Mood Description: Calm Affect: Normal Speech Pattern: Clear, Excessive - Laboratory and Diagnostics Result Diagrams: 10/24/17 05:20 10/24/17 06:20 Labs: 10/23/17 12:00 Urine,Catheterized Urine Culture - Final Escherichia Coli Laboratory WBC 7.9 X10^3/uL (3.6-10.0) 10/24/17 05:20 RBC 4.14 X10^6/uL (3.5-5.4) 10/24/17 05:20 Hgb 13.5 g/dL (12.0-16.0) 10/24/17 05:20 Hct 39.1 % (36.0-47.0) 10/24/17 05:20 MCV 94.4 fL (80.0-100.0) 10/24/17 05:20 MCH 32.6 pg (27.0-34.0) 10/24/17 05:20 MCHC 34.5 g/dL (33.0-35.0) 10/24/17 05:20 RDW 13.7 % (11.6-16.5) 10/24/17 05:20 Plt Count 234 X10^3/uL (150.0-450.0) 10/24/17 05:20 MPV 7.2 fL (7.4-11.0) L 10/24/17 05:20 Neut % 71.8 % (42.0-75.0) 10/24/17 05:20 Lymph % 19.0 % (21.0-51.0) L 10/24/17 05:20 [place] % 6.5 % (0.0-13.0) 10/24/17 05:20 Eos % 1.9 % (0.9-2.9) 10/24/17 05:20 Baso % 0.8 % (0.2-1.0) 10/24/17 05:20 Neut # 5.6 x10^3/uL (2.2-4.8) H 10/24/17 05:20 Lymph # 1.5 X10^3/uL (1.3-2.9) 10/24/17 05:20 [place] # 0.5 x10^3/uL (0.3-0.8) 10/24/17 05:20 Eos # 0.1 x10^3/uL (0.0-0.2) 10/24/17 05:20 Baso # 0.1 X10^3/uL (0.0-0.1) 10/24/17 05:20 Absolute Nucleated RBC 0.0 /100WBC 10/24/17 05:20 Sodium 142 mmol/L (136-145) 10/24/17 06:20 Corrected Sodium TNP 10/24/17 06:20 Potassium 3.8 mmol/L (3.5-5.1) 10/24/17 06:20 Chloride 106 mmol/L (98-107) 10/24/17 06:20 Carbon Dioxide 25.3 mmol/L (21-32) 10/24/17 06:20 BUN 8 mg/dL (7-18) 10/24/17 06:20 Creatinine 1.14 mg/dL (0.55-1.02) H 10/24/17 06:20 Est GFR (MDRD) Af Amer 58 (>60) L 10/24/17 06:20 Est GFR (MDRD) Non-Af 48 (>60) L 10/24/17 06:20 Glucose 105 mg/dL (65-99) H 10/24/17 06:20 Calcium 8.6 mg/dL (8.5-10.1) 10/24/17 06:20 Corrected Calcium 9.2 mg/dL (8.5-10.1) 10/24/17 06:20 Total Bilirubin 0.30 mg/dL (0.2-1.0) 10/24/17 06:20 AST 19 Units/L (15-37) 10/24/17 06:20 ALT 20 Units/L (12-78) 10/24/17 06:20 Alkaline Phosphatase 119 Units/L (46-116) H 10/24/17 06:20 Total Protein 7.1 g/dL (6.4-8.2) 10/24/17 06:20 Albumin 3.3 g/dL (3.4-5.0) L 10/24/17 06:20 Globulin 3.8 g/dL (2.5-4.5) 10/24/17 06:20 Albumin/Globulin Ratio 0.9 Ratio (1.1-2.1) L 10/24/17 06:20 Specimen Type Catherized urine 10/23/17 12:00 Urine Color Yellow (YELLOW) 10/23/17 12:00 Urine Appearance Hazy (CLEAR) 10/23/17 12:00 Urine pH 5.0 (5.0 - 8.0) 10/23/17 12:00 Ur Specific [place] 1.025 (1.000-1.030) 10/23/17 12:00 Urine Protein 1+ (NEGATIVE) 10/23/17 12:00 Urine Glucose (UA) Negative (NEGATIVE) 10/23/17 12:00 Urine Ketones 1+ (NEGATIVE) 10/23/17 12:00 Urine Occult Blood 1+ (NEGATIVE) 10/23/17 12:00 Urine Nitrite Positive (NEGATIVE) 10/23/17 12:00 Urine Bilirubin Negative (NEGATIVE) 10/23/17 12:00 Urine Urobilinogen Normal (NORMAL) 10/23/17 12:00 Ur Leukocyte Esterase 2+ (NEGATIVE) 10/23/17 12:00 Urine RBC 0-2 /HPF (NEGATIVE) 10/23/17 12:00 Urine WBC 11-12 /HPF (NEGATIVE) 10/23/17 12:00 Ur Squamous Epith Cells Negative /HPF (NEGATIVE) 10/23/17 12:00 Urine Bacteria 3+ /HPF (NEGATIVE) 10/23/17 12:00 Ur Culture Indicated? Yes/culture set up 10/23/17 12:00 - Plan (1) Altered mental status Status: Acute Qualifiers: Altered mental status type: transient alteration of awareness Qualified Code(s): R40.4 - Transient alteration of awareness Plan: ZYPREXA 5MG PO BID, HALDOL 2MG IV Q4H PRN, CONTINUE TO MONITOR (2) Urinary tract infection Status: Acute Qualifiers: Urinary tract infection type: acute cystitis Hematuria presence: without hematuria Qualified Code(s): N30.00 - Acute cystitis without hematuria Plan: CIPRO 400MG IV Q12H, CONTINUE IV FLUIDS, ENCOURAGE PO INTAKE, CONTINUE TO MONITOR
[2017-10-26] MEDS: NS 1000 ML 1,000 ML IV SCH (05:16)
[2017-10-26 06:58] LABS: BASOPHILS # (AUTO) 0.1 X10^3/uL (0.0-0.1); BASOPHILS % (AUTO) 1.1 % (0.2-1.0); EOSINOPHILS # (AUTO) 0.3 x10^3/uL (0.0-0.2); EOSINOPHILS % (AUTO) 3.5 % (0.9-2.9); HEMATOCRIT 39.3 % (36.0-47.0); HEMOGLOBIN 13.4 g/dL (12.0-16.0); LYMPHOCYTES # (AUTO) 1.5 X10^3/uL (1.3-2.9); LYMPHOCYTES % (AUTO) 20.2 % (21.0-51.0); MEAN CORPUSCULAR HEMOGLOBIN 32.4 pg (27.0-34.0); MEAN CORPUSCULAR VOLUME 95.2 fL (80.0-100.0); MEAN PLATELET VOLUME 7.5 fL (7.4-11.0); MONOCYTES # (AUTO) 0.5 x10^3/uL (0.3-0.8); MONOCYTES % (AUTO) 6.8 % (0.0-13.0); NEUTROPHILS % (AUTO) 68.4 % (42.0-75.0); PLATELET COUNT 231 X10^3/uL (150.0-450.0); RED BLOOD COUNT 4.13 X10^6/uL (3.5-5.4); RED CELL DISTRIBUTION WIDTH 13.8 % (11.6-16.5); WHITE BLOOD COUNT 7.3 X10^3/uL (3.6-10.0)
[2017-10-26 07:09] LABS: ALANINE AMINOTRANSFERASE 18 Units/L (12-78); ALBUMIN 3.2 g/dL (3.4-5.0); ALKALINE PHOSPHATASE 103 Units/L (46-116); ASPARTATE AMINO TRANSFERASE 21 Units/L (15-37); BLOOD UREA NITROGEN 11 mg/dL (7-18); CALCIUM 8.7 mg/dL (8.5-10.1); CARBON DIOXIDE 25.3 mmol/L (21-32); CHLORIDE 108 mmol/L (98-107); COR CA(FOR HYPOALB) 9.3 mg/dL (8.5-10.1); SODIUM 144 mmol/L (136-145); TOTAL PROTEIN 6.8 g/dL (6.4-8.2); eGFR BLACK RACES 55 (>60); eGFR NON BLACK RACES 45 (>60)
[2017-10-26 08:15] LABS: PLATELET MORPHOLOGY COMMENT NORMAL (NORMAL)
[2017-10-26] MEDS: PEPCID TAB 20 MG PO SCH (10:33)
[2017-10-26] MEDS: ZESTRIL TAB 10 MG PO SCH (10:33)
[2017-10-26] MEDS: HEMOCYTE-PLUS PO SCH (10:33)
[2017-10-26] MEDS: CIPRO IV 400 MG PREMIX* 400 MG/200 ML IV.SOLN. IV SCH ×2 (10:33→16:37)
[2017-10-26] MEDS: PriLOSEC PO SCH (10:33)
[2017-10-26] MEDS: ZyPREXA TAB 5 MG PO SCH ×2 (10:33→21:11)
[2017-10-26] MEDS: CELEXA PO SCH (10:34)
[2017-10-26] MEDS: SINGULAIR TAB 10 MG PO SCH (10:34)
[2017-10-26] MEDS: COREG TAB 6.25 MG PO SCH ×2 (10:34→21:11)
[2017-10-26] MEDS: EFFEXOR TAB 75 MG (BID DOSING) PO SCH ×2 (10:34→21:11)
[2017-10-26] MEDS: ANTIVERT TAB 25 MG PO SCH (21:11)
[2017-10-26] MEDS: CATAPRES TAB 0.1 MG PO SCH (21:11)
[2017-10-27] MEDS: NS 1000 ML 1,000 ML IV SCH ×2 (02:03→07:54)
[2017-10-27 05:16] LABS: ALANINE AMINOTRANSFERASE 16 Units/L (12-78); ALBUMIN 2.8 g/dL (3.4-5.0); ALKALINE PHOSPHATASE 92 Units/L (46-116); ASPARTATE AMINO TRANSFERASE 19 Units/L (15-37); BASOPHILS % (AUTO) 0.5 % (0.2-1.0); BLOOD UREA NITROGEN 11 mg/dL (7-18); CALCIUM 8.3 mg/dL (8.5-10.1); CARBON DIOXIDE 24.9 mmol/L (21-32); CHLORIDE 107 mmol/L (98-107); COR CA(FOR HYPOALB) 9.3 mg/dL (8.5-10.1); CREATININE 1.12 mg/dL (0.55-1.02); EOSINOPHILS # (AUTO) 0.3 x10^3/uL (0.0-0.2); EOSINOPHILS % (AUTO) 4.2 % (0.9-2.9); LYMPHOCYTES # (AUTO) 1.6 X10^3/uL (1.3-2.9); LYMPHOCYTES % (AUTO) 24.2 % (21.0-51.0); MEAN CORPUSCULAR HEMOGLOBIN 32.4 pg (27.0-34.0); MEAN CORPUSCULAR HGB CONC 34.3 g/dL (33.0-35.0); MEAN CORPUSCULAR VOLUME 94.5 fL (80.0-100.0); MEAN PLATELET VOLUME 7.5 fL (7.4-11.0); MONOCYTES # (AUTO) 0.5 x10^3/uL (0.3-0.8); MONOCYTES % (AUTO) 7.4 % (0.0-13.0); NEUTROPHILS # (AUTO) 4.2 x10^3/uL (2.2-4.8); NEUTROPHILS % (AUTO) 63.7 % (42.0-75.0); PLATELET COUNT 218 X10^3/uL (150.0-450.0); RED CELL DISTRIBUTION WIDTH 13.8 % (11.6-16.5); SODIUM 142 mmol/L (136-145); TOTAL PROTEIN 6.1 g/dL (6.4-8.2); WHITE BLOOD COUNT 6.6 X10^3/uL (3.6-10.0); eGFR BLACK RACES 59 (>60); eGFR NON BLACK RACES 49 (>60)
[2017-10-27] MEDS ORDERED: POTASSIUM CHL 40 MEQ/NS 0.45% 500 ML IV PRN (07:18)
[2017-10-27] MEDS ORDERED: POTASSIUM CHL 60 MEQ/NS 0.45% 500 ML IV PRN (07:18)
[2017-10-27] MEDS ORDERED: K-LYTE EFFERVESCENT PO PRN (07:18)
[2017-10-27] MEDS ORDERED: K-RIDER 10 MEQ/NS 100 ML 10 MEQ/100 ML BAG IV PRN (07:18)
[2017-10-27] MEDS ORDERED: POTASSIUM CHLORIDE LIQ 20 MEQ UDC PO PRN (07:18)
[2017-10-27] MEDS ORDERED: MAG-OX TAB PO PRN (07:18)
[2017-10-27] MEDS ORDERED: MAGNESIUM SULFATE 1 GM/100 mL PREMIX 1 GM/100 ML BAG IV PRN (07:18)
[2017-10-27] MEDS: CELEXA PO SCH (10:08)
[2017-10-27] MEDS: OMNICEF CAP 300 MG PO SCH ×2 (10:08→21:02)
[2017-10-27] MEDS: PEPCID TAB 20 MG PO SCH (10:08)
[2017-10-27] MEDS: PriLOSEC PO SCH (10:09)
[2017-10-27] MEDS: ZESTRIL TAB 10 MG PO SCH (10:09)
[2017-10-27] MEDS: EFFEXOR TAB 75 MG (BID DOSING) PO SCH ×2 (10:09→21:02)
[2017-10-27] MEDS: COREG TAB 6.25 MG PO SCH ×2 (10:09→21:02)
[2017-10-27] MEDS: SINGULAIR TAB 10 MG PO SCH (10:09)
[2017-10-27] MEDS: HEMOCYTE-PLUS PO SCH (10:09)
[2017-10-27] MEDS: ZyPREXA TAB 5 MG PO SCH ×2 (10:10→21:02)
[2017-10-27] MEDS: CATAPRES TAB 0.1 MG PO SCH (21:02)
[2017-10-27] MEDS: ANTIVERT TAB 25 MG PO SCH (21:02)
--- NOTE | 2017-10-27 22:13 | PCM.PROG ---
Progress Note - Progress Note for Day of Date: 10/26/17 - Subjective Subjective: WAS ADMITTED FOR ALTERED MENTAL STATUS. SHE IS ALERT, SITTING UP IN BED ON MORNING ROUNDS. SHE IS NOT ORIENTED TO PERSON, TIME, OR SITUATION. SHE ANSWERS QUESTIONS INAPPROPRIATELY. STAFF REPORTS THAT PATIENT CONTINUES TO BE COMBATIVE AND UNCOOPERATIVE. ON EXAMINATION, PUPILS PERRL. HEART IN REGULAR IN RATE AND RHYTHM. LUNGS ARE CLEAR BILATERALLY TO AUSCULTATION. ABDOMEN IS ROUND, SOFT, AND NOTED WITH MILD, SUPRAPUBIC TENDERNESS. NORMAL BOWEL SOUNDS ARE NOTED IN ALL QUADRANTS. THERE IS GOOD MOVEMENT IN ALL EXTREMITIES. HER VITAL SIGNS THIS MORNING ARE 98.4-88-16-94%-143 /63. SHE IS HEMODYNAMICALLY STABLE TODAY. URINE CULTURE IS CURRENTLY PENDING. WE PLAN TO DISCUSS PLACEMENT AT A [facility] WITH PATIENTS DAUGHTER. WE WILL CONTINUE WITH CURRENT PLAN OF CARE TODAY AND AWAIT RESULTS OF URINE CULTURE. WE PLAN TO FOLLOW UP WITH AM LABS AND CONTINUE TO MONTOR PATIENT. - Past Medical Family Social History Past Med/Fam/Surg Hx: No changes since H&P Allergies: Allergies cephalexin [From Keflex] Adverse Reaction (Verified 07/28/17 19:58) morphine Adverse Reaction (Verified 07/28/17 19:58) sertraline [From Zoloft] Adverse Reaction (Verified 07/28/17 19:58) - Review of Systems ROS: No change since H&P - Vital Signs and I&O's Vital Signs: Temperature 98.6 F Pulse Rate [Right Brachial] 72 Pulse Rate [Left Brachial] 88 Respiratory Rate 20 Blood Pressure [Left Arm] 191/81 Blood Pressure [Right Arm] 111/56 Blood Pressure [Standing] 145/70 Blood Pressure [Sitting] 149/65 Blood Pressure [Lying] 171/74 Blood Pressure 139/91 O2 Sat by Pulse Oximetry 96 Intake and Output: Intake & Output 10/25/17 10/26/17 10/27/17 10/28/17 11:59 11:59 11:59 11:59 Intake Total 206 291 4411 1320 Balance 823 879 2971 1320 - Physical Exam Oriented: Person Eyes: Normal. negative: Blurred Vision, Diplopia, Discharge, Pain, Redness, Photophobia, Other Ear: Normal. negative: Right, Left, Swelling, Ecchymosis, Hemotypanum, Abrasion , Laceration Nose: Normal. negative: Injected, Discharge, Blood, Other Throat: Normal. negative: Tonsillar Hypertrophy, Red, Exudate, Dry, Other Respiratory: Normal Cardiovascular: Normal : Normal. negative: Dysuria, Hematuria, Frequency, Discharge, Testicular Pain , Bleeding, , Other Auscultation: Bowel Sounds: Normal. negative: Bruit, Absent, Increased, Decreased, High Pitched, Other Palpation: Normal Tenderness: Suprapubic, Mild. negative: Rebound, Guarding, Rigidity Skin: Decreased Turgur Musculoskeletal: Right, Hip, Tender Psychiatric: Normal Mood Description: Calm Affect: Normal Speech Pattern: Clear, Excessive - Laboratory and Diagnostics Result Diagrams: 10/27/17 03:50 10/27/17 03:50 Labs: 10/23/17 12:00 Urine,Catheterized Urine Culture - Final Escherichia Coli Laboratory WBC 6.6 X10^3/uL (3.6-10.0) 10/27/17 03:50 RBC 3.70 X10^6/uL (3.5-5.4) 10/27/17 03:50 Hgb 12.0 g/dL (12.0-16.0) 10/27/17 03:50 Hct 35.0 % (36.0-47.0) L 10/27/17 03:50 MCV 94.5 fL (80.0-100.0) 10/27/17 03:50 MCH 32.4 pg (27.0-34.0) 10/27/17 03:50 MCHC 34.3 g/dL (33.0-35.0) 10/27/17 03:50 RDW 13.8 % (11.6-16.5) 10/27/17 03:50 Plt Count 218 X10^3/uL (150.0-450.0) 10/27/17 03:50 Plt Count Comment Adequate (ADEQUATE) 10/26/17 06:30 MPV 7.5 fL (7.4-11.0) 10/27/17 03:50 Neut % 63.7 % (42.0-75.0) 10/27/17 03:50 Lymph % 24.2 % (21.0-51.0) 10/27/17 03:50 [place] % 7.4 % (0.0-13.0) 10/27/17 03:50 Eos % 4.2 % (0.9-2.9) H 10/27/17 03:50 Baso % 0.5 % (0.2-1.0) 10/27/17 03:50 Neut # 4.2 x10^3/uL (2.2-4.8) 10/27/17 03:50 Lymph # 1.6 X10^3/uL (1.3-2.9) 10/27/17 03:50 [place] # 0.5 x10^3/uL (0.3-0.8) 10/27/17 03:50 Eos # 0.3 x10^3/uL (0.0-0.2) H 10/27/17 03:50 Baso # 0.0 X10^3/uL (0.0-0.1) 10/27/17 03:50 Absolute Nucleated RBC 0.1 /100WBC 10/27/17 03:50 Plt Clumps, EDTA Rare 10/26/17 06:30 Plt Morphology Comment Normal (NORMAL) 10/26/17 06:30 RBC Morphology Normal (NORMAL) 10/26/17 06:30 Sodium 142 mmol/L (136-145) 10/27/17 03:50 Corrected Sodium TNP 10/27/17 03:50 Potassium 3.3 mmol/L (3.5-5.1) L 10/27/17 03:50 Chloride 107 mmol/L (98-107) 10/27/17 03:50 Carbon Dioxide 24.9 mmol/L (21-32) 10/27/17 03:50 BUN 11 mg/dL (7-18) 10/27/17 03:50 Creatinine 1.12 mg/dL (0.55-1.02) H 10/27/17 03:50 Est GFR (MDRD) Af Amer 59 (>60) 10/27/17 03:50 Est GFR (MDRD) Non-Af 49 (>60) L 10/27/17 03:50 Glucose 107 mg/dL (65-99) H 10/27/17 03:50 Calcium 8.3 mg/dL (8.5-10.1) L 10/27/17 03:50 Corrected Calcium 9.3 mg/dL (8.5-10.1) 10/27/17 03:50 Magnesium 2.0 mg/dL (1.7-2.9) 10/27/17 03:50 Total Bilirubin 0.30 mg/dL (0.2-1.0) 10/27/17 03:50 AST 19 Units/L (15-37) 10/27/17 03:50 ALT 16 Units/L (12-78) 10/27/17 03:50 Alkaline Phosphatase 92 Units/L (46-116) 10/27/17 03:50 Total Protein 6.1 g/dL (6.4-8.2) L 10/27/17 03:50 Albumin 2.8 g/dL (3.4-5.0) L 10/27/17 03:50 Globulin 3.3 g/dL (2.5-4.5) 10/27/17 03:50 Albumin/Globulin Ratio 0.8 Ratio (1.1-2.1) L 10/27/17 03:50 Specimen Type Catherized urine 10/23/17 12:00 Urine Color Yellow (YELLOW) 10/23/17 12:00 Urine Appearance Hazy (CLEAR) 10/23/17 12:00 Urine pH 5.0 (5.0 - 8.0) 10/23/17 12:00 Ur Specific [place] 1.025 (1.000-1.030) 10/23/17 12:00 Urine Protein 1+ (NEGATIVE) 10/23/17 12:00 Urine Glucose (UA) Negative (NEGATIVE) 10/23/17 12:00 Urine Ketones 1+ (NEGATIVE) 10/23/17 12:00 Urine Occult Blood 1+ (NEGATIVE) 10/23/17 12:00 Urine Nitrite Positive (NEGATIVE) 10/23/17 12:00 Urine Bilirubin Negative (NEGATIVE) 10/23/17 12:00 Urine Urobilinogen Normal (NORMAL) 10/23/17 12:00 Ur Leukocyte Esterase 2+ (NEGATIVE) 10/23/17 12:00 Urine RBC 0-2 /HPF (NEGATIVE) 10/23/17 12:00 Urine WBC 11-12 /HPF (NEGATIVE) 10/23/17 12:00 Ur Squamous Epith Cells Negative /HPF (NEGATIVE) 10/23/17 12:00 Urine Bacteria 3+ /HPF (NEGATIVE) 10/23/17 12:00 Ur Culture Indicated? Yes/culture set up 10/23/17 12:00 - Plan (1) Altered mental status Status: Acute Qualifiers: Altered mental status type: transient alteration of awareness Qualified Code(s): R40.4 - Transient alteration of awareness Plan: ZYPREXA 5MG PO BID, HALDOL 2MG IV Q4H PRN, CONTINUE TO MONITOR (2) Urinary tract infection Status: Acute Qualifiers: Urinary tract infection type: acute cystitis Hematuria presence: without hematuria Qualified Code(s): N30.00 - Acute cystitis without hematuria Plan: CIPRO 400MG IV Q12H, CONTINUE IV FLUIDS, ENCOURAGE PO INTAKE, CONTINUE TO MONITOR (3) Anemia Status: Chronic Qualifiers: Anemia type: iron deficiency Iron deficiency anemia type: inadequate dietary iron intake Qualified Code(s): D50.8 - Other iron deficiency anemias Plan: CONTINUE HEMOCYTE (4) Anxiety Status: Acute Plan: CONTINUE ZYPREXA, CONTINUE HALDOL, CONTINUE TO MONITOR (5) Depression Status: Chronic Qualifiers: Depression Type: major depressive disorder Major depression recurrence: recurrent Active/Remission status: currently active Major depression episode severity: moderate Qualified Code(s): F33.1 - Major depressive disorder, recurrent, moderate Plan: CONTINUE CELEXA, CONTINUE EFFEXOR, CONTINUE TO MONITOR (6) GERD (gastroesophageal reflux disease) Status: Chronic Qualifiers: Esophagitis presence: esophagitis presence not specified Qualified Code(s) : K21.9 - Gastro-esophageal reflux disease without esophagitis (7) Hypertension Status: Chronic Qualifiers: Hypertension type: essential hypertension Qualified Code(s): I10 - Essential (primary) hypertension Plan: CONTINUE CATAPRES, CONTINUE COREG, CONTINUE TO MONITOR (8) Vertigo Status: Chronic Plan: CONTINUE MECLIZINE, CONTINUE TO MONITOR
--- NOTE | 2017-10-28 00:14 | PCM.PROG ---
Progress Note - Progress Note for Day of Date: 10/27/17 - Subjective Subjective: WAS ADMITTED FOR ALTERED MENTAL STATUS. SHE WAS FOUND TO HAVE A URINARY TRACT INFECTION. PATIENT IS ALERT, SITTING UP IN BED ON MORNING ROUNDS. PATIENT IS MORE ALERT TODAY THAN OUR PREVIOUS VISIT. STAFF REPORTS THAT PATIENT CONTINUES WITH CONFUSION THROUGHOUT THE NIGHT. PATIENT IS REFUSING TO TAKE MEDICATIONS OR FOR IV ACCESS TO BE RESTARTED. SHE IS ORIENTED TO PERSON THIS MORNING, OTHERWISE, NOTED WITH INAPPROPRIATE RESPONSES TO QUESTIONS AND COMMANDS. ON EXAMINATION, PUPILS PERRL. HEART IS REGULAR IN RATE AND RHYTHM. LUNGS ARE CLEAR BILATERALLY TO AUSCULTATION. ABDOMEN IS ROUND, SOFT, AND NOTED WITH MILD, SUPRAPUBIC TENDERNESS ON PALPATION. NORMAL BOWEL SOUNDS ARE NOTED IN ALL QUADRANTS. THERE IS GOOD MOVEMENT IN ALL EXTREMITIES. HER VITAL SIGNS THIS MORNING ARE 97.7-76-20-93%-129/60. ABNORMAL LAB VALUES INCLUDE THE FOLLOWING: HCT 35, POTASSIUM 3.3, CREATININE 1.12, GFR 49, GLUCOSE 107, TOTAL PROTEIN 6.1, ALBUMIN 2.8. URINE CULTURE REPORTS GROWTH OF E.COLI. IT IS RESISTANT TO THE CIPRO THAT SHE WAS ON. SHE REFUSES IV ACCESS, THEREFORE, WE WILL START OMNICEF 300MG PO BID. WE SPOKE WITH PATIENTS DAUGHTER TODAY WHO STATES THAT SHE IS NO LONGER ABLE TO CARE FOR PATIENT AT HOME DUE TO COMBATIVE BEHAVIOR AND DECLINE IN AMBULATION AND SELF CARE. SHE REQUEST THAT PATIENT BE PLACED IN A [facility] FACILITY. WE WILL FURTHER DISCUSS THIS WITH CASE MANAGEMENT. TODAY, WE WILL INCREASE ZYPREXA TO 10MG PO BID. OTHERWISE, WE WILL CONTINUE WITH CURRENT PLAN OF CARE. WE PLAN TO FOLLOW UP WITH AM LABS AND CONTINUE TO MONTOR PATIENT. - Past Medical Family Social History Past Med/Fam/Surg Hx: No changes since H&P Allergies: Allergies cephalexin [From Keflex] Adverse Reaction (Verified 07/28/17 19:58) morphine Adverse Reaction (Verified 07/28/17 19:58) sertraline [From Zoloft] Adverse Reaction (Verified 07/28/17 19:58) - Review of Systems ROS: No change since H&P - Vital Signs and I&O's Vital Signs: Temperature 97.6 F Pulse Rate [Right Brachial] 78 Pulse Rate [Left Brachial] 88 Respiratory Rate 20 Blood Pressure [Left Arm] 191/81 Blood Pressure [Right Arm] 118/57 Blood Pressure [Standing] 145/70 Blood Pressure [Sitting] 149/65 Blood Pressure [Lying] 171/74 Blood Pressure 139/91 O2 Sat by Pulse Oximetry 95 Intake and Output: Intake & Output 10/25/17 10/26/17 10/27/17 10/28/17 11:59 11:59 11:59 11:59 Intake Total 407 330 1838 1320 Balance 050 824 6597 1320 - Physical Exam Oriented: Person Eyes: Normal. negative: Blurred Vision, Diplopia, Discharge, Pain, Redness, Photophobia, Other Ear: Normal. negative: Right, Left, Swelling, Ecchymosis, Hemotypanum, Abrasion , Laceration Nose: Normal. negative: Injected, Discharge, Blood, Other Throat: Normal. negative: Tonsillar Hypertrophy, Red, Exudate, Dry, Other Respiratory: Normal Cardiovascular: Normal : Normal. negative: Dysuria, Hematuria, Frequency, Discharge, Testicular Pain , Bleeding, , Other Auscultation: Bowel Sounds: Normal. negative: Bruit, Absent, Increased, Decreased, High Pitched, Other Palpation: Normal Tenderness: Suprapubic, Mild. negative: Rebound, Guarding, Rigidity Skin: Decreased Turgur Musculoskeletal: Right, Hip, Tender Psychiatric: Normal Mood Description: Calm Affect: Normal Speech Pattern: Clear, Excessive - Laboratory and Diagnostics Result Diagrams: 10/27/17 03:50 10/27/17 03:50 Labs: 10/23/17 12:00 Urine,Catheterized Urine Culture - Final Escherichia Coli Laboratory WBC 6.6 X10^3/uL (3.6-10.0) 10/27/17 03:50 RBC 3.70 X10^6/uL (3.5-5.4) 10/27/17 03:50 Hgb 12.0 g/dL (12.0-16.0) 10/27/17 03:50 Hct 35.0 % (36.0-47.0) L 10/27/17 03:50 MCV 94.5 fL (80.0-100.0) 10/27/17 03:50 MCH 32.4 pg (27.0-34.0) 10/27/17 03:50 MCHC 34.3 g/dL (33.0-35.0) 10/27/17 03:50 RDW 13.8 % (11.6-16.5) 10/27/17 03:50 Plt Count 218 X10^3/uL (150.0-450.0) 10/27/17 03:50 Plt Count Comment Adequate (ADEQUATE) 10/26/17 06:30 MPV 7.5 fL (7.4-11.0) 10/27/17 03:50 Neut % 63.7 % (42.0-75.0) 10/27/17 03:50 Lymph % 24.2 % (21.0-51.0) 10/27/17 03:50 [place] % 7.4 % (0.0-13.0) 10/27/17 03:50 Eos % 4.2 % (0.9-2.9) H 10/27/17 03:50 Baso % 0.5 % (0.2-1.0) 10/27/17 03:50 Neut # 4.2 x10^3/uL (2.2-4.8) 10/27/17 03:50 Lymph # 1.6 X10^3/uL (1.3-2.9) 10/27/17 03:50 Bath # 0.5 x10^3/uL (0.3-0.8) 10/27/17 03:50 Eos # 0.3 x10^3/uL (0.0-0.2) H 10/27/17 03:50 Baso # 0.0 X10^3/uL (0.0-0.1) 10/27/17 03:50 Absolute Nucleated RBC 0.1 /100WBC 10/27/17 03:50 Plt Clumps, EDTA Rare 10/26/17 06:30 Plt Morphology Comment Normal (NORMAL) 10/26/17 06:30 RBC Morphology Normal (NORMAL) 10/26/17 06:30 Sodium 142 mmol/L (136-145) 10/27/17 03:50 Corrected Sodium TNP 10/27/17 03:50 Potassium 3.3 mmol/L (3.5-5.1) L 10/27/17 03:50 Chloride 107 mmol/L (98-107) 10/27/17 03:50 Carbon Dioxide 24.9 mmol/L (21-32) 10/27/17 03:50 BUN 11 mg/dL (7-18) 10/27/17 03:50 Creatinine 1.12 mg/dL (0.55-1.02) H 10/27/17 03:50 Est GFR (MDRD) Af Amer 59 (>60) 10/27/17 03:50 Est GFR (MDRD) Non-Af 49 (>60) L 10/27/17 03:50 Glucose 107 mg/dL (65-99) H 10/27/17 03:50 Calcium 8.3 mg/dL (8.5-10.1) L 10/27/17 03:50 Corrected Calcium 9.3 mg/dL (8.5-10.1) 10/27/17 03:50 Magnesium 2.0 mg/dL (1.7-2.9) 10/27/17 03:50 Total Bilirubin 0.30 mg/dL (0.2-1.0) 10/27/17 03:50 AST 19 Units/L (15-37) 10/27/17 03:50 ALT 16 Units/L (12-78) 10/27/17 03:50 Alkaline Phosphatase 92 Units/L (46-116) 10/27/17 03:50 Total Protein 6.1 g/dL (6.4-8.2) L 10/27/17 03:50 Albumin 2.8 g/dL (3.4-5.0) L 10/27/17 03:50 Globulin 3.3 g/dL (2.5-4.5) 10/27/17 03:50 Albumin/Globulin Ratio 0.8 Ratio (1.1-2.1) L 10/27/17 03:50 Specimen Type Catherized urine 10/23/17 12:00 Urine Color Yellow (YELLOW) 10/23/17 12:00 Urine Appearance Hazy (CLEAR) 10/23/17 12:00 Urine pH 5.0 (5.0 - 8.0) 10/23/17 12:00 Ur Specific [place] 1.025 (1.000-1.030) 10/23/17 12:00 Urine Protein 1+ (NEGATIVE) 10/23/17 12:00 Urine Glucose (UA) Negative (NEGATIVE) 10/23/17 12:00 Urine Ketones 1+ (NEGATIVE) 10/23/17 12:00 Urine Occult Blood 1+ (NEGATIVE) 10/23/17 12:00 Urine Nitrite Positive (NEGATIVE) 10/23/17 12:00 Urine Bilirubin Negative (NEGATIVE) 10/23/17 12:00 Urine Urobilinogen Normal (NORMAL) 10/23/17 12:00 Ur Leukocyte Esterase 2+ (NEGATIVE) 10/23/17 12:00 Urine RBC 0-2 /HPF (NEGATIVE) 10/23/17 12:00 Urine WBC 11-12 /HPF (NEGATIVE) 10/23/17 12:00 Ur Squamous Epith Cells Negative /HPF (NEGATIVE) 10/23/17 12:00 Urine Bacteria 3+ /HPF (NEGATIVE) 10/23/17 12:00 Ur Culture Indicated? Yes/culture set up 10/23/17 12:00 - Plan (1) Altered mental status Status: Acute Qualifiers: Altered mental status type: transient alteration of awareness Qualified Code(s): R40.4 - Transient alteration of awareness Plan: ZYPREXA 10MG PO BID, CONTINUE TO MONITOR (2) Urinary tract infection Status: Acute Qualifiers: Urinary tract infection type: acute cystitis Hematuria presence: without hematuria Qualified Code(s): N30.00 - Acute cystitis without hematuria Plan: OMNICEF 300MG PO BID, CONTINUE IV FLUIDS, ENCOURAGE PO INTAKE, CONTINUE TO MONITOR (3) Anxiety Status: Acute Plan: CONTINUE ZYPREXA, CONTINUE HALDOL, CONTINUE TO MONITOR (4) Anemia Status: Chronic Qualifiers: Anemia type: iron deficiency Iron deficiency anemia type: inadequate dietary iron intake Qualified Code(s): D50.8 - Other iron deficiency anemias Plan: CONTINUE HEMOCYTE (5) Depression Status: Chronic Qualifiers: Depression Type: major depressive disorder Major depression recurrence: recurrent Active/Remission status: currently active Major depression episode severity: moderate Qualified Code(s): F33.1 - Major depressive disorder, recurrent, moderate Plan: CONTINUE CELEXA, CONTINUE EFFEXOR, CONTINUE TO MONITOR (6) GERD (gastroesophageal reflux disease) Status: Chronic Qualifiers: Esophagitis presence: esophagitis presence not specified Qualified Code(s) : K21.9 - Gastro-esophageal reflux disease without esophagitis (7) Hypertension Status: Chronic Qualifiers: Hypertension type: essential hypertension Qualified Code(s): I10 - Essential (primary) hypertension Plan: CONTINUE CATAPRES, CONTINUE COREG, CONTINUE TO MONITOR (8) Vertigo Status: Chronic Plan: CONTINUE MECLIZINE, CONTINUE TO MONITOR
[2017-10-28] MEDS: NS 1000 ML 1,000 ML IV SCH (05:08)
[2017-10-28] MEDS ORDERED: ZyPREXA TAB 5 MG PO SCH (09:00)
[2017-10-28] MEDS: CELEXA PO SCH (09:26)
[2017-10-28] MEDS: COREG TAB 6.25 MG PO SCH (09:27)
[2017-10-28] MEDS: PriLOSEC PO SCH (09:27)
[2017-10-28] MEDS: OMNICEF CAP 300 MG PO SCH (09:27)
[2017-10-28] MEDS: PEPCID TAB 20 MG PO SCH (09:28)
[2017-10-28] MEDS: ZESTRIL TAB 10 MG PO SCH (09:28)
[2017-10-28] MEDS: EFFEXOR TAB 75 MG (BID DOSING) PO SCH (09:28)
[2017-10-28] MEDS: HEMOCYTE-PLUS PO SCH (09:28)
[2017-10-28] MEDS: SINGULAIR TAB 10 MG PO SCH (09:28)
[2017-10-28 09:51] VITALS: BP 135/63
[2017-10-28 10:24] LABS: BASOPHILS % (AUTO) 0.4 % (0.2-1.0); EOSINOPHILS # (AUTO) 0.2 x10^3/uL (0.0-0.2); EOSINOPHILS % (AUTO) 4.5 % (0.9-2.9); LYMPHOCYTES # (AUTO) 1.2 X10^3/uL (1.3-2.9); LYMPHOCYTES % (AUTO) 21.8 % (21.0-51.0); MEAN CORPUSCULAR HEMOGLOBIN 31.9 pg (27.0-34.0); MEAN CORPUSCULAR HGB CONC 33.4 g/dL (33.0-35.0); MEAN CORPUSCULAR VOLUME 95.7 fL (80.0-100.0); MEAN PLATELET VOLUME 7.5 fL (7.4-11.0); MONOCYTES # (AUTO) 0.3 x10^3/uL (0.3-0.8); MONOCYTES % (AUTO) 6.5 % (0.0-13.0); NEUTROPHILS # (AUTO) 3.6 x10^3/uL (2.2-4.8); NEUTROPHILS % (AUTO) 66.8 % (42.0-75.0); PLATELET COUNT 247 X10^3/uL (150.0-450.0); RED BLOOD COUNT 4.07 X10^6/uL (3.5-5.4); WHITE BLOOD COUNT 5.3 X10^3/uL (3.6-10.0)
[2017-10-28 10:31] LABS: ALANINE AMINOTRANSFERASE 17 Units/L (12-78); ALBUMIN 3.1 g/dL (3.4-5.0); ALKALINE PHOSPHATASE 107 Units/L (46-116); ASPARTATE AMINO TRANSFERASE 15 Units/L (15-37); BLOOD UREA NITROGEN 7 mg/dL (7-18); CALCIUM 8.7 mg/dL (8.5-10.1); CARBON DIOXIDE 27.3 mmol/L (21-32); CHLORIDE 109 mmol/L (98-107); COR CA(FOR HYPOALB) 9.4 mg/dL (8.5-10.1); COR NA(FOR HYPERGLY) 145 mmol/L (136-145); SODIUM 144 mmol/L (136-145); TOTAL PROTEIN 6.8 g/dL (6.4-8.2); eGFR BLACK RACES > 60 (>60); eGFR NON BLACK RACES 50 (>60)
== END 2017-10-28 13:50 | DRG 948 ==
LOC: OBS 09:59 → MED/SURG 10-24 11:10 → OBSVTOIN 10-25 09:00
PROVIDERS: ADMIT Internal Medicine; ATTEND Internal Medicine
PROC: 3E0234Z Introduction of Serum, Toxoid and Vaccine into Muscle, Percutaneous Approach (ICD-10-PCS; principal; 2017-10-24)
DX: R41.82 Altered mental status, unspecified (principal); N30.00 Acute cystitis without hematuria; R44.3 Hallucinations, unspecified; F33.1 Major depressive disorder, recurrent, moderate; R26.81 Unsteadiness on feet; B96.29 Other Escherichia coli [E. coli] as the cause of diseases classified elsewhere; E11.65 Type 2 diabetes mellitus with hyperglycemia; I10 Essential (primary) hypertension; E78.2 Mixed hyperlipidemia; C44.621 Squamous cell carcinoma of skin of unspecified upper limb, including shoulder; J44.9 Chronic obstructive pulmonary disease, unspecified; K21.9 Gastro-esophageal reflux disease without esophagitis; D50.8 Other iron deficiency anemias; F41.8 Other specified anxiety disorders; R42 Dizziness and giddiness; R26.89 Other abnormalities of gait and mobility; Z23 Encounter for immunization; Z78.1 Physical restraint status
CPT/HCPCS: 36415; 70450; 80053; 81001; 83735; 85025; 87086; 87088; 87186; 90686; 97535; A4222; G0378; J0744; J1630